=== PATIENT | male | born 1940 | race Caucasian/White ===

== ENCOUNTER 2019-12-08 02:51 | Observation (INO) | payer MEDICARE, OTHER, SELFPAY ==
[2019-12-08] VITALS (14 sets, daily range): BP systolic 136–178; BP diastolic 64–78; PULSE 60–80; RESP 14–20; TEMP 35.8–36.6; O2SAT 96–100; BMI 22.8
--- NOTE | ~2019-12-08 | CT_ITS ---
EXAMINATION: CT brain wo con DATE: 12/08/2019 02:58 INDICATION: Left-sided weakness TECHNIQUE: Computed tomography (CT) of the head was performed without intravenous contrast. The dose- length product was 605.33 mGy-cm. The mA was adjusted according to patient size. Iterative reconstruc tion technique was employed. COMPARISON: None FINDINGS: Generalized atrophy. There are scattered moderate-severe periventricular and subcortical wh ite matter changes, most likely related to small vessel ischemic disease (microangiopathy). Chronic r ight frontal lobe infarctions. Basilar cisterns are patent. There is intracranial atherosclerosis. Th ere is mucosal thickening of the paranasal sinuses. Mastoids are pneumatized. No depressed skull frac tures. Midline sagittal images are unremarkable. IMPRESSION: 1. No acute intracranial abnormality. 2: Chronic right frontal lobe infarctions. 3: Sinusitis. 4: Chronic age-related findings. Reviewed, dictated and finalized at location A.
--- NOTE | ~2019-12-08 | US_ITS ---
EXAMINATION: US carotid duplex BI DATE: 12/08/2019 10:53 INDICATION: Left-sided numbness TECHNIQUE: Grayscale, color Doppler, and pulsed Doppler images of the cervical carotid arteries were obtained. The degree of vessel stenosis is placed in one of the following categories: normal, <50%, 5 0-69%, >=70% but less than near-occlusion, near-occlusion, or total occlusion. Note that percent sten osis relative to normal distal artery lumen diameter is indirectly measured from velocity measurement s as described by Yousuf, et al. Radiology 2003; 229:340-346. Notes: Normal: Peak systolic velocity <125 centimeters/sec and no plaque <50%. Peak systolic velocity <125 ( EDV <40; ICA/CCA PSV ratio <2.0; used these factors only a tandem lesions or low cardiac output or co ntralateral disease) 50-69 %: PSV 125-230 (EDV 40-100; ratio 2-4) >= 70% but less than near occlusion: PSV greater than 230 (EDV > 100; ratio> 4.0) Near Occlusion: PSV that is variable; markedly narrowed lumen Occlusion: Absent flow on color/spectral Doppler and no lumen on nichols scale. COMPARISON: None. FINDINGS: RIGHT: The right common carotid artery (CCA) peak systolic velocity (PSV) is 79 cm/s. The right internal car otid artery (ICA) PSV is 124 cm/s. The right ICA end-diastolic velocity (EDV) is 31 cm/s. The right I CA/CCA PSV ratio is 1.6. The external carotid artery (ECA) PSV is 79 cm/s. There is antegrade flow in the right vertebral artery. LEFT: The left CCA PSV is 80 cm/s. The left ICA PSV is 123 cm/s. The left ICA EDV is 40 cm/s. The left ICA/ CCA PSV ratio is 1.5. The ECA PSV is 67 cm/s. There is antegrade flow in the left vertebral artery. IMPRESSION: 1. Less than 50% stenosis in the right internal carotid artery by sonographic criteria. 2. Less than 50% stenosis in the left internal carotid artery by sonographic criteria. Reviewed, dictated and finalized at location A. IMPRESSION: 1. Less than 50% stenosis in the right internal carotid artery by sonographic gretchen prasad. 2. Less than 50% stenosis in the left internal carotid artery by sonographic jenifer meyers.
--- NOTE | ~2019-12-08 | MR_ITS ---
EXAMINATION: MR brain/brain stem wo/w con DATE: 12/08/2019 09:20 INDICATION: TIA. Left-sided numbness. TECHNIQUE: Magnetic resonance imaging (MRI) of the brain and brainstem was performed without and with 14 cc MultiHance intravenous contrast. Sequences included sagittal and axial T1-weighted SE, axial d iffusion-weighted FS SE, axial T2*-weighted GRE, axial T2-weighted FLAIR Propeller, and axial T2-weig hted Propeller. Apparent diffusion coefficient (ADC) maps were created. COMPARISON: CT dated 12/08/2019. FINDINGS: Generalized atrophy. No acute intracranial infarction or hemorrhage. There is chronic micro hemorrhage of the right posterior parietal lobe. There is chronic right frontal lobe infarction with encephalomalacia. There are chronic punctate bilateral cerebellar infarctions. No ventriculomegaly or midline shift. There is mucosal thickening of the maxillary, ethmoid and left sphenoid sinus. Orbits are symmetric without disconjugate gaze. IMPRESSION: 1. No acute intracranial abnormality. 2: Chronic right frontal lobe and bilateral cerebellar infarctions. 3: Moderate sinusitis, possibly acute. 4: Chronic age-related findings. Reviewed, dictated and finalized at location A.
--- NOTE | ~2019-12-08 | XR_ITS ---
XR chest 1V portable 12/08/2019 03:19 Indication: Left-sided weakness. Dyspnea. Procedure: AP portable chest Comparison: No prior studies for comparison. Findings: Status post median sternotomy heart size normal. No focal air space disease, pulmonary marisa a, pleural effusion or suspected pneumothorax. There are scattered calcified granulomas. No acute oss eous abnormality. Impression: 1: No acute cardiopulmonary disease. Reviewed, dictated and finalized at location A. Impression: 1: No acute cardiopulmonary disease.
--- NOTE | 2019-12-08 02:52 | ECG_ITS ---
Measurements Intervals [place] Rate: 66 P: 64 OR: 186 QRS: 21 QRSD: 98 T: 45 QT: 425 QTc: 446 Interpretive Statements SINUS RHYTHM CANNOT RULE OUT SEPTAL INFARCT, AGE INDETERMINATE NONSPECIFIC ST & T-WAVE ABNORMALITY- DIFFUSE LEADS BASELINE ARTIFACT- I, II, III, AVR, AVL, AVF ABNORMAL ECG Electronically Signed On 12-08-2019 8:04:04 CDT by Brandon Fraser D.O.
[2019-12-08 03:06] LABS: Glucose Point of Care 94 (65-105)
[2019-12-08 03:19] LABS: Basophils Absolute Auto 0.1 K/mm3 (0.0-0.1); Basophils Percent Auto 0.6 % (0.2-1.2); Eosinophils Absolute Auto 0.3 K/mm3 (0-0.3); Eosinophils Percent Auto 2.8 % (0-4.4); Hematocrit 40.7 % (42.0-52.0); Hemoglobin 12.7 g/dL (14.0-18.0); Immature Granulocyte Absolute 0.04 K/mm3 (0.00-0.031); Immature Granulocyte Percent A 0.4 % (0-0.5); Lymphocytes Absolute Auto 0.72 K/mm3 (0.9-3.2); Lymphocytes Percent Auto 7.3 % (18.3-44.2); Mean Corpuscular HGB Conc 31.2 g/dl (32-36); Mean Corpuscular Hemoglobin 26.1 pg (26-34); Mean Corpuscular Volume 83.7 fl (80-100); Mean Platelet Volume 10.5 fl (7.4-10.4); Monocytes Absolute Auto 0.6 K/mm3 (0.1-0.6); Monocytes Percent Auto 6.5 % (2.6-8.5); Neutrophils Absolute Auto 8.1 K/mm3 (1.3-6.7); Neutrophils Percent Auto 82.4 % (45.5-73.1); Platelet Count Result 274 k/mm3 (150-375); Red Blood Count 4.86 M/mm3 (4.6-6.20); Red Cell Distribution Width 14.6 % (11.5-14.5); White Blood Count 9.9 K/mm3 (4.5-10.0)
[2019-12-08 03:24] LABS: Blood Urea Nitrogen 21 mg/dL (9-20); Calcium 8.2 mg/dL (8.4-10.2); Carbon Dioxide 28 mmol/L (22-30); Chloride 106 mmol/L (98-107); Estimated CRCL calculation 44 ml/min; Estimated Glomerular Filt Rate 58; Glucose 119 mg/dL (75-110); Potassium 4.2 mmol/L (3.4-5.0); Sodium 140 mmol/L (137-145)
[2019-12-08 03:36] LABS: Troponin I < 0.012 ng/mL (0.000-0.034)
[2019-12-08 03:50] LABS: Prothrombin Time 13.1 Seconds (11.1-14.7)
--- NOTE | 2019-12-08 03:50 | ED.NEUROSD ---
HPI - Neuro Symptoms/Deficit General Chief Complaint: Suspected CVA Stated Complaint: L sided weakness Time Seen by Provider: 12/08/19 03:03 Source: patient Mode of arrival: EMS Limitations: no limitations History of Present Illness HPI Narrative: 79 yo male who presents via EMS for evaluation of left side numbness. PAtient states he noticed at 2 am that he was having difficulty walking because his left arm and left leg numbness. He states this has never happened before. He reports history of a stroke over 20 years ago. He denies headache, blurred vision, dizziness, chest pain or sob. HE denies leg or arm weakness. He thinks his numbness has improved in his left arm but his left leg still has numbness. He takes aspirin 81 mg daily. Onset (ago): hour(s) (1) Related Data Home Medications Medication Instructions Recorded Confirmed alendronate 70 mg PO WEEKLY 12/08/19 12/08/19 amlodipine 5 mg PO DAILY 12/08/19 12/08/19 aspirin [Aspir-81] 81 mg PO DAILY 12/08/19 12/08/19 cholecalciferol (vitamin D3) 2,000 unit PO DAILY 12/08/19 12/08/19 diclofenac sodium 2 g TOPICAL BID PRN 12/08/19 12/08/19 hydrophilic cream 1 applic TOPICAL DAILY 12/08/19 12/08/19 leflunomide 20 mg PO DAILY 12/08/19 12/08/19 pravastatin 40 mg PO DAILY 12/08/19 12/08/19 prednisone 5 mg PO DAILY 12/08/19 12/08/19 tofacitinib 5 mg PO DAILY 12/08/19 12/08/19 tofacitinib 11 mg PO DAILY 12/08/19 12/08/19 Allergies Allergy/AdvReac Type Severity Reaction Status Date / Time atorvastatin Allergy Unknown Verified 12/08/19 05:05 hydroxychloroquine Allergy Unknown Verified 12/08/19 05:05 peanut Allergy Unknown Verified 12/08/19 05:05 Penicillins Allergy Unknown Verified 12/08/19 05:05 Sulfa (Sulfonamide Allergy Unknown Verified 12/08/19 05:05 Antibiotics) Review of Systems Review of Systems: Narrative: CONSTITUTIONAL: Denies fever, chills, or sweats. EYES: Denies visual changes, redness, or discharge. ENT: Denies rhinorrhea, congestion, sore throat, or otalgia. CARDIOVASCULAR: Denies chest pain, palpitations, or edema. RESPIRATORY: Denies cough or dyspnea. GASTROINTESTINAL: Denies abdominal pain, nausea, vomiting, or diarrhea. GENITOURINARY: Denies dysuria or hematuria. SKIN: Denies rash or itching. MUSCULOSKELETAL: Denies back pain, joint pain, or myalgia. NEUROLOGIC: Denies headache, reports numbness PSYCHIATRIC: Denies anxiety or depression. PMFSH Past Medical History Medical History (Updated 12/08/19 @ 05:21 by Hamida Martinez RN) Carotid stenosis Hypertension Surgical History Surgical History (Updated 12/08/19 @ 04:31 by Katie Antonio MD) Hx of CABG Family History Family History (Updated 12/08/19 @ 07:09 by Rocio Rae RN) Father Acute myocardial infarction Social History Social History Alcohol intake: former Substance use: never Substance use type: does not use Gender identity (if verbalized by the patient): Male Spiritual care concerns: No Agree to blood products: Yes Exam Narrative: Exam Narrative: gENERAL: Well-appearing, well-nourished, and in no acute distress. HEAD: Normocephalic, atraumatic EYES: PERRLA and EOMI, conjunctiva clear without discharge THROAT:Mucous membranes moist, Oropharynx normal without erythema, exudate, peritonsillar swelling or fluctuance NECK: Supple, without lymphadenopathy or mass RESPIRATORY: No respiratory distress, Airway patent, Respirations non-labored, Clear to auscultation without rales, rhonchi or wheeze HEART: Regular rate and rhythm. No murmur heard. ABDOMEN: Soft, nontender, nondistended, normal active bowel sounds. No masses. No rebound or guarding, No organomegaly. EXTREMITIES: No edema, normal strength with full range of motion. SKIN: Warm, dry, normal color without rash NEURO: Alert and oriented x3. CN 2-12 grossly intact. No focal deficits. PSYCH: Normal mood and affect. Cardio: Peripheral pulses: posterior tibial pulses present bi
[2019-12-08 03:51] LABS: Partial Thromboplastin Time 28.6 SECONDS (22.3-36.8)
[2019-12-08] MEDS: SODIUM CHLORIDE 0.9% IV 1,000 ML 999 ML IV CONT (06:30)
--- NOTE | 2019-12-08 07:06 | ADMGEN ---
This patient, Jose Maria Baker, was admitted to Medical Room 246-01. Patient/family oriented to hospital policies and general routines including ID bracelet, bed and alarms, visiting hours, pain management, procedures, bathroom and other care routines, personal items, smoking policy, room service/diet, and visiting hours. Valuables list has been completed. Information on how to activate the Rapid Response Team has been discussed. Patient/Family are encouraged to report perceived risks to care and to ask questions if they do not understand what they are told or what they should do.
[2019-12-08] MEDS: CLOPIDOGREL BISULFATE 75 MG TABLET PO (08:29)
[2019-12-08 09:55] LABS: Glucose Point of Care 73 (65-105)
[2019-12-08] MEDS: AMLODIPINE BESYLATE 5 MG TABLET PO (10:15)
[2019-12-08] MEDS: ASPIRIN 81 MG ENTERIC TABLET PO (10:15)
[2019-12-08] MEDS: predniSONE 5 MG TABLET PO (10:16)
[2019-12-08] MEDS: PRAVASTATIN SODIUM 20 MG TABLET 40 MG PO (10:16)
--- NOTE | 2019-12-08 14:34 | PM.IMHP ---
H&P: HPI History of Present Illness Chief complaint: TIA Narrative: Jose Maria Baker is a 79 year old male who was in his normal state of health when he went to bed last night and woke up around 2:00 a.m. to go the bathroom. When he got up he realized his left arm and leg were numb. He thought he simply just slept on it wrong so he urinated and then went and sat in the living room. He noticed that his numbness was not getting any better. When he was walking he notice that he drags his foot as well. He said the numbness was worse when he was walking and better when he sat down. He said it kept coming and going. It lasted over an hour in total. During this time he also broke out in sweats and he was not sure why as this never happens. He had absolutely no chest pain, shortness of breath, palpitations, or jaw pain when this was going on. He said he has had a stroke in the past and also has CAD and required 8 stents in the past. He does not know when his last stress test was but it has been awhile. He denies fevers, chills, nausea, vomiting, cough, diarrhea, constipation, dysuria, problems with speech or dizziness. He has been eating and drinking okay. The symptoms have completely resolved at this time. Review of Systems Review of Systems: All systems reviewed & are unremarkable except as noted in HPI and below PMFSH Past Medical History Medical History (Updated 12/08/19 @ 16:15 by Sena Lemus PA-C) CAD (coronary artery disease) Carotid stenosis History of stroke Hypertension Rheumatoid arthritis Surgical History Surgical History (Updated 12/08/19 @ 16:21 by Sena Lemus PA-C) Hx of CABG pt and daughter said he had a SD during angiogram and had sternotomy and had 8 stents Family History Family History (Updated 12/08/19 @ 16:15 by Sena Lemus PA-C) Father Acute myocardial infarction Hypertension Mother Acute myocardial infarction Social History Social History (Updated 12/08/19 @ 16:22 by Sena Lemus PA-C) Social History: Patient has not smoked or drink alcohol since 1999. 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 He designates his daughter Yoko as his surrogate decision maker. He would like to be a full code. Smoking status: Former smoker Tobacco type: cigarettes Second hand tobacco smoke exposure: Yes Alcohol intake: former Substance use: never Substance use type: does not use Gender identity (if verbalized by the patient): Male Spiritual care concerns: No Agree to blood products: Yes Meds Home Medications and Allergies Home Medications Medication Instructions Recorded Confirmed Type alendronate 70 mg PO WEEKLY 12/08/19 12/08/19 History amlodipine 5 mg PO DAILY 12/08/19 12/08/19 History aspirin [Aspir-81] 81 mg PO DAILY 12/08/19 12/08/19 History cholecalciferol (vitamin D3) 2,000 unit PO DAILY 12/08/19 12/08/19 History diclofenac sodium 2 g TOPICAL BID PRN 12/08/19 12/08/19 History dorzolamide-timolol 1 drp LEFTEYE BID 12/08/19 12/08/19 History hydrophilic cream 1 applic TOPICAL DAILY 12/08/19 12/08/19 History leflunomide 20 mg PO DAILY 12/08/19 12/08/19 History pravastatin 40 mg PO DAILY 12/08/19 12/08/19 History prednisolone acetate 1 drp LEFTEYE TID 12/08/19 12/08/19 History prednisone 5 mg PO DAILY 12/08/19 12/08/19 History tofacitinib 5 mg PO DAILY 12/08/19 12/08/19 History tofacitinib 11 mg PO DAILY 12/08/19 12/08/19 History Allergies Allergy/AdvReac Type Severity Reaction Status Date / Time atorvastatin Allergy Unknown Verified 12/08/19 05:05 hydroxychloroquine Allergy Unknown Verified 12/08/19 05:05 peanut Allergy Unknown Verified 12/08/19 05:05 Penicillins Allergy Unknown Verified 12/08/19 05:05 Sulfa (Sulfonamide Allergy Unknown Verified 12/08/19 05:05 Antibiotics) Vital Signs Vital Signs - 24 hr 12/08/19 02:58 12/08/19 04:19 12/08/19 04:23 Temperature 97.4 F L Pulse Rate 68 80 80 Respiratory Rate 16 18 18 Blood Pressure 171/77 H 13
[2019-12-08 15:23] LABS: Troponin I < 0.012 ng/mL (0.000-0.034)
[2019-12-08 16:16] LABS: Folic Acid 7.5 ng/mL (2.76->20)
--- NOTE | 2019-12-08 17:08 | WPDNEURCNPN ---
Assessment and Plan Assessment and plan (1) HLD (hyperlipidemia): Code(s): E78.5 - Hyperlipidemia, unspecified Status: Acute (2) History of stroke: Code(s): Z86.73 - Personal history of transient ischemic attack (TIA), and cerebral infarction without residual deficits Status: Acute (3) HTN (hypertension) with goal to be determined: Code(s): I10 - Essential (primary) hypertension Status: Acute (4) CAD (coronary artery disease): Code(s): I25.10 - Atherosclerotic heart disease of [place] coronary artery without angina pectoris Status: Acute (5) Rheumatoid arthritis: Code(s): M06.9 - Rheumatoid arthritis, unspecified Status: Acute (6) TIA (transient ischemic attack): Code(s): G45.9 - Transient cerebral ischemic attack, unspecified Status: Acute Additional Plan patient already had the brain MRI performed which is unrevealing rest of the workup is pending he should be continued on a 12 anti-platelet therapy and monitored most likely would need echocardiogram considering the fact that he has had the previous coronary artery bypass surgery and also stenting Consult date: 12/08/19 Time Seen: 17:00 HPI: this is an 79-year-old right-handed gentleman who was admitted because of a TIA when all of a sudden early this morning he had numbness and weakness of the left side of the arm and the leg which resolved spontaneously only to reoccur and also resolved quite nicely the patient does not have any previous history of the same thing in the past he was evaluated in the emergency room and has had the workup performed which I will summarize in the next few lines next Patient denies any headache nausea vomiting chest pain shortness of breath fever chills or sore throat the patient was already taking aspirin and clopidogrel has been added have from the emergency room he is doing fairly well and is back to his baseline rather quickly Review of Systems Review of Systems: All systems reviewed & are unremarkable except as noted in HPI and below PMFSH Past Medical History Medical History CAD (coronary artery disease) Carotid stenosis History of stroke Hypertension Rheumatoid arthritis Surgical History Surgical History Hx of CABG pt and daughter said he had a CA during angiogram and had sternotomy and had 8 stents Family History Family History Father Acute myocardial infarction Hypertension Mother Acute myocardial infarction Social History Social History Social History: Patient has not smoked or drink alcohol since 1999. 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 He designates his daughter Yoko as his surrogate decision maker. He would like to be a full code. Smoking status: Former smoker Tobacco type: cigarettes Second hand tobacco smoke exposure: Yes Alcohol intake: former Substance use: never Substance use type: does not use Gender identity (if verbalized by the patient): Male Spiritual care concerns: No Agree to blood products: Yes Meds Home Medications and Allergies Home Medications Medication Instructions Recorded Confirmed Type alendronate 70 mg PO WEEKLY 12/08/19 12/08/19 History amlodipine 5 mg PO DAILY 12/08/19 12/08/19 History aspirin [Aspir-81] 81 mg PO DAILY 12/08/19 12/08/19 History cholecalciferol (vitamin D3) 2,000 unit PO DAILY 12/08/19 12/08/19 History diclofenac sodium 2 g TOPICAL BID PRN 12/08/19 12/08/19 History dorzolamide-timolol 1 drp LEFTEYE BID 12/08/19 12/08/19 History hydrophilic cream 1 applic TOPICAL DAILY 12/08/19 12/08/19 History leflunomide 20 mg PO DAILY 12/08/19 12/08/19 History pravastatin 40 mg PO DAILY 12/08/19 12/08/19 History prednisolone acetate 1 drp LEFTEYE TID 12/08/19 12/08/19 History prednisone 5 mg PO DAILY
[2019-12-08] MEDS: DORZOLAMIDE/TIMOLOL OPHTH SOL 10 ML BOTTLE 1 DROP LEFT EYE (17:35)
[2019-12-09] VITALS (10 sets, daily range): BP systolic 116–164; BP diastolic 54–82; PULSE 61–86; RESP 16–18; TEMP 36–36.8; O2SAT 96–98
--- NOTE | 2019-12-09 06:00 | ECHO_ITS ---
Patient Info Name: Jose Maria Baker Age: 79 years : 1940 Gender: Male Ht: 70 in Wt: 159 lbs BSA: 1.89 m2 HR: 68 bpm BP: 164 / 82 mmHg Technical Quality: Fair Exam Date: 12/09/2019 9:03 AM Exam Location: [facility] Pulmonary Patient Status: Inpatient Admit Date: 12/08/2019 Staff Ordering Physician: Katie Antonio MD [employer]: Yani Harrington RDCS Attending Provider: Deborah Dong DO Referring Physician: Paco WONG; Exam Type: CA echo doppler w bubble study Study Info Indications - TIA Complete two-dimensional, color flow and Doppler transthoracic echocardiogram is performed with agitated saline. Contrast/Agitated Saline Contrast/Ag. Saline: Agitated Saline Amount: 20.00 ml Administered By: Samuel Roberson RN IV Access Condition: patent with no signs of infiltration Site Condition: No extravasation Summary 1. Left ventricular chamber dimension is normal. 2. Left ventricular systolic function is normal, estimated at 60-65%. 3. The left ventricular diastolic function is grade I diastolic dysfunction. 4. E/e' 21 is significantly elevated. 5. There is moderate aortic valve sclerosis. 6. There is mild aortic valve stenosis with a peak velocity of 198 cm/s, mean gradient of 10 mmHg, and aortic valve area of 1.8 cm2. 7. There is trace aortic valve regurgitation. 8. The mitral valve has moderately thickened leaflets, calcified leaflets and calcified annulus. 9. There is mild tricuspid valve regurgitation. 10. No pulmonary hypertension, estimated pulmonary arterial systolic pressure is 33 mmHg. Left Ventricle E/e' 21 is significantly elevated. Left ventricular chamber dimension is normal. Left ventricular systolic function is normal, estimated at 60-65%. The left ventricular diastolic function is grade I diastolic dysfunction. Right Ventricle Right ventricular chamber dimension is normal. Right ventricular systolic function is normal. Left Atria Left atrial chamber dimension is normal. Right Atria Right atrial chamber dimension is normal. Atrial Septum Agitated saline administered which opacified right sided chambers with and without valsalva maneuver with no shunt noted. Intact interatrial septum visualized by color flow and agitated saline imaging. Aortic Valve The aortic valve is trileaflet. There is moderate aortic valve sclerosis. There is mild aortic valve stenosis with a peak velocity of 198 cm/s, mean gradient of 10 mmHg, and aortic valve area of 1.8 cm2. There is trace aortic valve regurgitation. Pulmonic Valve There is no pulmonic regurgitation. Mitral Valve The mitral valve has moderately thickened leaflets, calcified leaflets and calcified annulus. There is no mitral valve stenosis. There is no mitral valve regurgitation. Tricuspid Valve There is mild tricuspid valve regurgitation. No pulmonary hypertension, estimated pulmonary arterial systolic pressure is 33 mmHg. Pericardium/Pleural There is no pericardial effusion. Inferior Vena Cava Normal inferior vena cava with >50% collapse upon inspiration consistent with normal right atrial pressure, 5 mmHg. Aorta The aortic root size at the sinus of Valsalva is normal. Left Ventricular Outflow Tract Name Value Normal
[2019-12-09] MEDS: ASPIRIN 81 MG ENTERIC TABLET PO (08:07)
[2019-12-09] MEDS: CLOPIDOGREL BISULFATE 75 MG TABLET PO (08:07)
[2019-12-09] MEDS: predniSONE 5 MG TABLET PO (08:07)
[2019-12-09] MEDS: AMLODIPINE BESYLATE 5 MG TABLET PO (08:07)
[2019-12-09] MEDS: PRAVASTATIN SODIUM 20 MG TABLET 40 MG PO (08:07)
[2019-12-09] MEDS: DORZOLAMIDE/TIMOLOL OPHTH SOL 10 ML BOTTLE 1 DROP LEFT EYE ×2 (08:08→17:14)
[2019-12-09 08:59] LABS: Cholesterol 137 mg/dL (0-200); HDL Direct 34 mg/dL; Triglycerides 113 mg/dL (<150)
[2019-12-09 09:10] LABS: LDL Cholesterol Direct 76 mg/dL
--- NOTE | 2019-12-09 11:42 | PM.CNCAR ---
Assessment and Plan Assessment and plan (1) HTN (hypertension) with goal to be determined: Code(s): I10 - Essential (primary) hypertension Status: Acute Assessment and Plan: Stable. (2) CAD (coronary artery disease): Code(s): I25.10 - Atherosclerotic heart disease of [place] coronary artery without angina pectoris Status: Acute (3) TIA (transient ischemic attack): Code(s): G45.9 - Transient cerebral ischemic attack, unspecified Status: Acute (4) HLD (hyperlipidemia): Code(s): E78.5 - Hyperlipidemia, unspecified Status: Acute (5) CAD (coronary artery disease), autologous vein bypass graft: Code(s): I25.810 - Atherosclerosis of coronary artery bypass graft(s) without angina pectoris Status: Acute (6) PAF (paroxysmal atrial fibrillation): Code(s): I48.0 - Paroxysmal atrial fibrillation Status: Acute Assessment and Plan: This is most likely PAF with aberrancy than it is NSVT. [id number] which is high risk for cardioembolism. Check Mag level. Check echo. Start Toprol XL 25 mg daily. Stop Plavix, and start Eliquis 5 mg BID. History of Present Illness History of Present Illness Consult date/time: 12/09/19 11:42 Reason for consult: VT vs Afib with aberrancy. Jose Maria Baker is a 79 year old man who has a history of CAD with CABG in 1999 at [facility] (patient believes he had a cardiac cath then was sent for open heart surgery to have 8 stents placed which does not happen normally), dyslipidemia, hypertension, stroke who was in his normal state of health when he went to bed 2 nights ago and woke up around 2:00 a.m. to go the bathroom. When he got up he realized his left arm and leg were numb. He thought he simply just slept on it wrong so he urinated and then went and sat in the living room. He noticed that his numbness was not getting any better. When he was walking he notice that he drags his foot as well. He said the numbness was worse when he was walking and better when he sat down. He said it kept coming and going. It lasted over an hour in total. Denies chest pain, sob, orthopnea, edema, palpitations. He can walk to his mailbox or a couple of blocks without any problems depending on the day. It was noted on telemetry at 7:25 pm on 12/08/19 a 13 beat run that is irregularly irregular, rapid, and dissimilar from his PVC's on telemetry, and is most likely paroxysmal atrial fib with aberrancy. Patient did not feel this last evening. Reason For Visit: TIA Review of Systems Review of Systems: All systems reviewed & are unremarkable except as noted in HPI and below Constitutional: Constitutional: Reports as per HPI, Denies chills and Denies fatigue Cardiovascular: Cardiovascular: Reports as per HPI, Denies chest pain, Denies leg edema and Denies lightheadedness Respiratory: Respiratory: Reports as per HPI and Denies dyspnea on exertion Gastrointestinal: Gastrointestinal: Reports as per HPI and Denies abdominal pain Genitourinary: Genitourinary: Reports as per HPI Neurologic: Reports as per HPI and Reports numbness PMFSH Past Medical History Medical History (Updated 12/09/19 @ 11:57 by Brandon Fraser DO) CAD (coronary artery disease) Carotid stenosis Dry skin High cholesterol History of stroke Hypertension Inflammatory and immune myopathies Osteoarthritis Rheumatoid arthritis Vitamin D deficiency Surgical History Surgical History Hx of CABG pt and daughter said he had a DE during angiogram and had sternotomy and had 8 stents Family History Family History Father Acute myocardial infarction Hypertension Mother Acute myocardial infarction Social History Social History Social History: Patient has not smoked or drink alcohol since 1999. 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 He designates his d
--- NOTE | 2019-12-09 13:38 | PM.IMPN ---
Progress Note: A&P Assessment and Plan (1) TIA (transient ischemic attack): Code(s): G45.9 - Transient cerebral ischemic attack, unspecified Status: Acute Assessment and Plan: -----patient's symptoms are consistent with a TIA. They resolved within an hour and there is no evidence on imaging. His carotids are clean and lipid panel is normal. Telemetry shows possible atrial fibrillation and I consulted Cardiology who started Eliquis. His Plavix, which was started at the beginning of his stay, was stopped. [facility] of his daughter. Because it takes a few days to obtain these prescriptions, the patient was given Eliquis samples from Dr. Van's office. Dr. van also started him on metoprolol and request he be monitored overnight and likely discharge tomorrow. Since the patient had diaphoresis with this numbness and new onset atrial fibrillation with his cardiac history, I suggest he be seen outpatient to see if a stress test would be appropriate. Echo- 1. Left ventricular chamber dimension is normal. 2. Left ventricular systolic function is normal, estimated at 60-65%. 3. The left ventricular diastolic function is grade I diastolic dysfunction. 4. E/e' 21 is significantly elevated. 5. There is moderate aortic valve sclerosis. 6. There is mild aortic valve stenosis with a peak velocity of 198 cm/s, mean gradient of 10 mmHg, and aortic valve area of 1.8 cm2. 7. There is trace aortic valve regurgitation. 8. The mitral valve has moderately thickened leaflets, calcified leaflets and calcified annulus. 9. There is mild tricuspid valve regurgitation. 10. No pulmonary hypertension, estimated pulmonary arterial systolic pressure is 33 mmHg. (2) Rheumatoid arthritis: Code(s): M06.9 - Rheumatoid arthritis, unspecified Status: Acute Assessment and Plan: -----home meds verified with his daughter. Continue home medications. No acute issues (3) CAD (coronary artery disease): Code(s): I25.10 - Atherosclerotic heart disease of [place] coronary artery without angina pectoris Status: Acute Assessment and Plan: -----will continue aspirin. No acute chest pain. See above (4) HTN (hypertension) with goal to be determined: Code(s): I10 - Essential (primary) hypertension Status: Acute Assessment and Plan: -----last blood pressure 121/66. Continue amlodipine. (5) History of stroke: Code(s): Z86.73 - Personal history of transient ischemic attack (TIA), and cerebral infarction without residual deficits Status: Acute Assessment and Plan: -----chronic stroke noted on imaging. Continue aspirin and pravastatin (6) HLD (hyperlipidemia): Code(s): E78.5 - Hyperlipidemia, unspecified Status: Acute Assessment and Plan: -----continue pravastatin. Time Spent With Patient Time with patient: 25 - 35 minutes Subjective Date/time seen: 12/09/19 13:38 Interval history: Pt is a 79-year-old male here for TIA. Patient was seen today and states he has no complaints. He has no chest pain, heart palpitations, shortness of breath, weakness, fevers, chills, diarrhea or constipation. He had no events overnight. I spoke to the patient about the current plan and medication changes. I also called and talked to his daughter Yoko at [phone]. [phone] and I spoke with Dr. Kennedy's associates about his new diagnosis and medications. Review of Systems Review of Systems: All systems reviewed & are unremarkable except as noted in HPI and below Exam Narrative: Exam Narrative: General: Well developed well nourished patient resting comfortably in the chair in NAD HEENT: normocephalic Neck: supple Neuro: Alert and oriented x4. Cranial nerves 2-12 intact. equal strength the upper lower extremities 5/5. Able to do [id number] and rapid alternatin
[2019-12-09] MEDS: METOPROLOL SUCCINATE EXT REL 25 MG TABCR PO (15:16)
[2019-12-09 15:23] LABS: Magnesium 2.1 mg/dL (1.6-2.3)
[2019-12-09] MEDS: APIXABAN 5 MG TABLET PO (20:03)
[2019-12-10 00:05] VITALS: PULSE 75
[2019-12-10 04:00] VITALS: PULSE 58
[2019-12-10 06:17] VITALS: BP 151/80; PULSE 69; RESP 16; TEMP 37.3; O2SAT 99
[2019-12-10 08:00] VITALS: PULSE 69
--- NOTE | 2019-12-10 08:00 | PM.PNCARD ---
Progress Note: A&P Assessment and Plan (1) CAD (coronary artery disease), autologous vein bypass graft: Code(s): I25.810 - Atherosclerosis of coronary artery bypass graft(s) without angina pectoris Status: Acute (2) PAF (paroxysmal atrial fibrillation): Code(s): I48.0 - Paroxysmal atrial fibrillation Status: Acute Assessment and Plan: Started Eliquis 5 mg BID and Toprol XL 25 mg daily. No recurrences. Echo is essentially normal with diastolic dysfunction. May D/C home from cardiology standpoint and f/u with his doctors [facility]. (3) HLD (hyperlipidemia): Code(s): E78.5 - Hyperlipidemia, unspecified Status: Acute (4) History of stroke: Code(s): Z86.73 - Personal history of transient ischemic attack (TIA), and cerebral infarction without residual deficits Status: Acute (5) TIA (transient ischemic attack): Code(s): G45.9 - Transient cerebral ischemic attack, unspecified Status: Acute Assessment and Plan: On Aspirin. (6) PAF (paroxysmal atrial fibrillation): Code(s): I48.0 - Paroxysmal atrial fibrillation Status: Acute Subjective Date/time seen: 12/10/19 08:00 Denies chest pain, sob, left sided numbness. Telemetry no longer had PVC's or atrial fibrillation. Exam Const: General: comfortable and no acute distress Neck: Neck: no JVD Carotids: no bruits Resp: Auscultation: clear to auscultation bilaterally, no crackles, no rales, no rhonchi and no wheezes Cardio: Rate: regular rate Rhythm: regular rhythm Heart sounds: no murmurs GI: Inspection: non-distended Neuro: Speech: normal speech Extrem: Right lower extremity: no edema Left lower extremity: no edema Objective Data Vital Signs Vital Signs: Vital Signs - 24 hr 12/09/19 12:00 12/09/19 13:30 12/09/19 15:16 Temperature 98.2 F Pulse Rate 75 78 80 Respiratory Rate 18 Blood Pressure 121/66 Pulse Oximetry 96 12/09/19 16:00 12/09/19 20:00 12/09/19 21:20 Temperature 98.3 F Pulse Rate 69 72 63 Respiratory Rate 18 16 Blood Pressure 116/54 L Pulse Oximetry 96 98 12/10/19 00:05 12/10/19 04:00 12/10/19 06:17 Temperature 99.1 F Pulse Rate 75 58 L 69 Respiratory Rate 16 Blood Pressure 151/80 H Pulse Oximetry 99 Intake/Output Intake/Output: Intake & Output 12/07/19 12/08/19 12/09/19 12/10/19 23:59 23:59 23:59 23:59 Intake Total 2230 1750 100 Output Total 950 500 600 Balance 1280 1250 -500 Meds/Results Medications: Active Medications Generic Name Dose Route Start Last Admin Trade Name Freq PRN Reason Stop Dose Admin Amlodipine Besylate 5 mg 12/08/19 09:35 12/09/19 08:07 Norvasc PO 5 mg DAILY TIM Administration Apixaban 5 mg 12/09/19 21:00 12/09/19 20:03 Eliquis PO 5 mg Q12HR TIM Administration Aspirin 81 mg 12/08/19 09:35 12/09/19 08:07 Aspirin Ec PO 81 mg DAILY TIM Administration Dorzolamide/Timolol 1 drop 12/08/19 17:00 12/09/19 17:14 Cosopt Eye Drops LEFT EYE 01/07/20 17:01 1 drop BID [facility] Administration Metoprolol Succinate 25 mg 12/10/19 09:00 Toprol Xl PO QAM [facility] Non-Formulary Medication 5 mg 12/09/19 09:00 Tofacitinib PO 01/08/20 09:01 DAILY [facility] Ondansetron HCl 4 mg 12/08/19 05:40 Zofran Inj IV PUSH Q4H PRN Nausea Pravastatin Sodium 40 mg 12/08/19 09:35 12/09/19 08:07 Pravastatin Sodium PO 40 mg DAILY TIM Administration Prednisolone Acetate 1 drop 12/08/19 13:00 12/09/19 17:14 Pred Forte LEFT EYE 1 drop TID TIM Administration Prednisone 5 mg 12/08/19 09:35 12/09/19 08:07 Prednisone PO 5 mg DAILY [facility] Administration Radiology Results: ITS Impressions Chest X-Ray 12/08/19 08:13 Impression: 1: No acute cardiopulmonary disease. Head CT 12/08/19 08:39 IMPRESSION: 1. No acute intracranial abnormality. 2: Chronic right frontal lobe infarctions. 3: Sinusitis. 4: Director Data Processing
[2019-12-10 08:15] VITALS: PULSE 69
[2019-12-10] MEDS: predniSONE 5 MG TABLET PO (08:15)
[2019-12-10] MEDS: ASPIRIN 81 MG ENTERIC TABLET PO (08:15)
[2019-12-10] MEDS: APIXABAN 5 MG TABLET PO (08:15)
[2019-12-10] MEDS: AMLODIPINE BESYLATE 5 MG TABLET PO (08:15)
[2019-12-10] MEDS: METOPROLOL SUCCINATE EXT REL 25 MG TABCR PO (08:15)
[2019-12-10] MEDS: PRAVASTATIN SODIUM 20 MG TABLET 40 MG PO (08:15)
[2019-12-10] MEDS: DORZOLAMIDE/TIMOLOL OPHTH SOL 10 ML BOTTLE 1 DROP LEFT EYE (08:17)
--- NOTE | 2019-12-10 09:54 | WPDNEUROPN ---
Progress Note: A&P Assessment and Plan (1) PAF (paroxysmal atrial fibrillation): Code(s): I48.0 - Paroxysmal atrial fibrillation Status: Acute (2) PAF (paroxysmal atrial fibrillation): Code(s): I48.0 - Paroxysmal atrial fibrillation Status: Acute (3) CAD (coronary artery disease), autologous vein bypass graft: Code(s): I25.810 - Atherosclerosis of coronary artery bypass graft(s) without angina pectoris Status: Acute (4) HLD (hyperlipidemia): Code(s): E78.5 - Hyperlipidemia, unspecified Status: Acute (5) History of stroke: Code(s): Z86.73 - Personal history of transient ischemic attack (TIA), and cerebral infarction without residual deficits Status: Acute (6) HTN (hypertension) with goal to be determined: Code(s): I10 - Essential (primary) hypertension Status: Acute (7) CAD (coronary artery disease): Code(s): I25.10 - Atherosclerotic heart disease of [place] coronary artery without angina pectoris Status: Acute (8) Rheumatoid arthritis: Code(s): M06.9 - Rheumatoid arthritis, unspecified Status: Acute (9) TIA (transient ischemic attack): Code(s): G45.9 - Transient cerebral ischemic attack, unspecified Status: Acute Additional Plan all studies reviewed and agree with treatment at present Review of Systems Review of Systems: All systems reviewed & are unremarkable except as noted in HPI and below Exam Const: General: cooperative, comfortable, no acute distress, alert and awake Nutritional Appearance: average body habitus Orientation/consciousness: patient oriented x3 Limitations: no limitations Eyes: General: appearance normal, both eyes and all related structures Neck: Neck: full ROM and no lymphadenopathy Resp: Effort & Inspection: normal respiratory effort Auscultation: clear to auscultation bilaterally Cardio: Rate: regular rate Rhythm: regular rhythm GI: Auscultation: normal bowel sounds Neuro: General: patient oriented x3 and moves all extremities Cranial nerves: Yes CN's II-XII intact bilaterally, Yes Equal, round and reactive pupils present, Yes Nystagmus not present, Yes Normal facial strength present, Yes Midline tongue present, Yes Symmetric palate elevation present, Yes Normal hearing present and Yes Ability to bilaterally rotate head present Cognition (Neuro): normal cognition Speech: normal speech Motor exam (neuro): 5/5 motor strength present throughout Sensory Exam: normal sensation Deep tendon reflexes (DTR's): Right triceps reflex intensity grade: 1+, Left triceps reflex intensity grade: 1+, Rt Biceps (C5, C6): 1+, Left biceps reflex intensity grade: 1+, Right brachioradialis reflex intensity grade: 1+, Left brachioradialis reflex intensity grade: 1+, Right patellar reflex intensity grade: 1+, Left patellar reflex intensity grade: 1+, Right ankle reflex intensity grade: 1+ and Left ankle reflex intensity grade: 1+ Plantar Reflex Responses: downgoing: bilateral Coordination: [id number] test normal Psych: Appearance: grossly normal Objective Data Vital Signs Vital Signs: Vital Signs - 24 hr 12/09/19 12:00 12/09/19 13:30 12/09/19 15:16 Temperature 36.8 C Pulse Rate 75 78 80 Respiratory Rate 18 Blood Pressure 121/66 Pulse Oximetry 96 12/09/19 16:00 12/09/19 20:00 12/09/19 21:20 Temperature 36.8 C Pulse Rate 69 72 63 Respiratory Rate 18 16 Blood Pressure 116/54 L Pulse Oximetry 96 98 12/10/19 00:05 12/10/19 04:00 12/10/19 06:17 Temperature 37.3 C Pulse Rate 75 58 L 69 Respiratory Rate 16 Blood Pressure 151/80 H Pulse Oximetry 99 12/10/19 08:00 12/10/19 08:15 Temperature Pulse Rate 69 69 Respiratory Rate Blood Pressure Pulse Oximetry Intake/Output Intake/Output: Intake & Output 12/07/19 12/08/19 12/09/19 12/10/19 23:59 23:59 23:59 23:59 Intake Total 2230 1750 460 Output Total 950 500 600 Balance 1280 1250 -14
--- NOTE | 2019-12-10 16:39 | PM.DS ---
DS: Diagnosis Admitting Diagnosis Admitting Diagnosis: Transient cerebral ischemic attack, unspecified Discharge Diagnosis (1) TIA (transient ischemic attack): Code(s): G45.9 - Transient cerebral ischemic attack, unspecified Status: Acute Assessment and Plan: Date of Service 12/10/19 Mr. Baker is an 79yo M with history of prior CVA, coronary artery disease, rheumatoid arthritis, hypertension, and hyperlipidemia who presented to the emergency department for evaluation of numbness and tingling to left arm and left leg. He reports these symptoms resolved in the ER. CT brain and MRI brain demonstrated chronic right frontal lobe and bilateral cerebellar infarctions with no evidence of acute intracranial abnormality. It is felt that his symptoms were most consistent with TIA. Carotid dopplers showed less than 50% stenosis in each of the left and right internal carotid arteries. Lipid panel is within normal limits. Telemetry demonstrated atrial fibrillation and cardiology was consulted. He was evaluated by Dr Fraser and echocardiogram was performed, detailed below. He was started on metoprolol and Eliquis by cardiology which he tolerated well. [facility]. His symptoms were resolved and he was feeling well on day of discharge. He was hemodynamically stable for discharge 12/10/19 with instructions to follow up with his PCP and with Dr Fraser. Consultations: Cardiology - Dr Fraser Echocardiogram 12/09/19 1. Left ventricular chamber dimension is normal. 2. Left ventricular systolic function is normal, estimated at 60-65%. 3. The left ventricular diastolic function is grade I diastolic dysfunction. 4. E/e' 21 is significantly elevated. 5. There is moderate aortic valve sclerosis. 6. There is mild aortic valve stenosis with a peak velocity of 198 cm/s, mean gradient of 10 mmHg, and aortic valve area of 1.8 cm2. 7. There is trace aortic valve regurgitation. 8. The mitral valve has moderately thickened leaflets, calcified leaflets and calcified annulus. 9. There is mild tricuspid valve regurgitation. 10. No pulmonary hypertension, estimated pulmonary arterial systolic pressure is 33 mmHg. (2) CAD (coronary artery disease): Qualifiers: Coronary Disease-Associated Artery/Lesion type: unspecified vessel or lesion type [place] vs. transplanted heart: [place] heart Associated angina: without angina Qualified Code(s): I25.10 - Atherosclerotic heart disease of [place] coronary artery without angina pectoris Code(s): I25.10 - Atherosclerotic heart disease of [place] coronary artery without angina pectoris Status: Acute Assessment and Plan: Maintained on ASA therapy. No acute chest pain. (3) HTN (hypertension) with goal to be determined: Code(s): I10 - Essential (primary) hypertension Status: Acute Assessment and Plan: BPs variable on home Norvasc. (4) Rheumatoid arthritis: Qualifiers: Rheumatoid arthritis location: unspecified site Rheumatoid factor presence: unspecified presence Qualified Code(s): M06.9 - Rheumatoid arthritis, unspecified Code(s): M06.9 - Rheumatoid arthritis, unspecified Status: Acute Assessment and Plan: No acute issues. (5) History of stroke: Code(s): Z86.73 - Personal history of transient ischemic attack (TIA), and cerebral infarction without residual deficits Status: Acute Assessment and Plan: Chronic stroke noted on imaging as mentioned above. Continue aspirin and pravastatin. Discussed increased risk for subsequent CVA and TIAs. (6) HLD (hyperlipidemia): Qualifiers: Hyperlipidemia type: unspecified Qualified Code(s): E78.5 - Hyperlipidemia,
== END 2019-12-10 10:30 | disposition home or self-care (01) ==
LOC: ANHED 05:03 → ANH2MED 06:27
PROVIDERS: Internal Medicine Cardiovascular Disease; Physician Assistant; Admitting Provider Internal Medicine; Emergency Provider General Practice; Visit Provider Hospitalist
DX: G45.9 Transient cerebral ischemic attack, unspecified (principal); I48.0 Paroxysmal atrial fibrillation; I25.10 Atherosclerotic heart disease of native coronary artery without angina pectoris; I25.810 Atherosclerosis of coronary artery bypass graft(s) without angina pectoris; I10 Essential (primary) hypertension; M06.9 Rheumatoid arthritis, unspecified; M19.90 Unspecified osteoarthritis, unspecified site; G72.49 Other inflammatory and immune myopathies, not elsewhere classified; E78.5 Hyperlipidemia, unspecified; E55.9 Vitamin D deficiency, unspecified; Z79.82 Long term (current) use of aspirin; Z79.899 Other long term (current) drug therapy; Z86.73 Personal history of transient ischemic attack (TIA), and cerebral infarction without residual deficits; Z87.891 Personal history of nicotine dependence; Z95.5 Presence of coronary angioplasty implant and graft
CPT/HCPCS: 36415; 70450; 70553; 71045; 80048; 80061; 82607; 82746; 82948; 83735; 84484; 85025; 85610; 85730; 93005; 93306; 93880; 96360; 96375; 99285; A9270; A9577; G0378; J7030; J7512

== ENCOUNTER 2020-01-28 18:40 | Observation (INO) | payer MEDICARE, OTHER, SELFPAY ==
--- NOTE | ~2020-01-28 | CT_ITS ---
EXAMINATION: CT brain wo con EXAM DATE: 01/28/2020 21:27 INDICATION: Left-sided hemiparesis. TECHNIQUE: Spiral CT of the head was performed without contrast. Axial, coronal and sagittal images were reviewed. The dose-length product (DLP) for this examination was 605.33 mGy-cm. The exposure w as tailored according to patient size, and iterative reconstruction (ASIR) was used as additional dos e reduction technique. Comparison is made to prior examination from 12/08/2019. FINDINGS: There is no acute intraparenchymal hemorrhage. No evidence of intraparenchymal brain mass lesion. No evidence of acute infarction. Please note that initial head CT has limited sensitivity f or small or acute infarctions. There is moderate-sized old right frontal lobe infarction, another sm all old right frontal lobe infarction, both unchanged. There is mild periventricular and subcortical hypodensity, nonspecific but probably related to small vessel ischemic disease. There is mild prom inence of the sulci and ventricles related to cerebral atrophy. There is intracranial carotid arter iosclerosis. There are no extra-axial collections. There is no mass effect or midline shift. Patie nt has had bilateral ocular lens surgery. Soft tissue is unremarkable. Moderate left ethmoid mucope riosteal thickening. IMPRESSION: 1. 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 2. Chronic age related findings. Reviewed, dictated and finalized at location A.
--- NOTE | ~2020-01-28 | CT_ITS ---
EXAMINATION: CTA brain carotid DATE: 01/29/2020 11:08 INDICATION: Left hemiparesis. TECHNIQUE: Computed tomographic angiography (CTA) of the head was performed without and with 100 mL O mnipaque-350 intravenous contrast. CTA of the neck was performed with intravenous contrast. Automated exposure control and iterative reconstruction technique were employed. The dose-length product was 1 628.42 mGy-cm. Maximum intensity projection and volume rendered 3D-reconstructions were created by karen burgess technologist on a separate workstation. COMPARISON: Brain MRI 01/29/2020 FINDINGS: HEAD CTA: There are old infarcts in the bilateral cerebellum. There is an old infarct in right fronta l lobe. There is an old infarct in right frontoparietal region. There are scattered areas of low atte nuation in the cerebral white matter. There is no intracranial hemorrhage, acute infarction, or abnor mal intracranial mass lesion. The ventricles are normal in size. There are likely changes of ocular l ens replacement surgeries. There is mucosal thickening in the paranasal sinuses and nasal cavity. The mastoid air cells are normal. There is total occlusion of distal right vertebral artery. There is se dereck stenosis of distal left vertebral artery. There is no significant stenosis of basilar artery or the posterior cerebral arteries. The posterior communicating arteries are normal. There is mild steno sis of the intracranial internal carotid arteries. Right A1 anterior cerebral artery segment is small , a normal variant. Anterior communicating artery is normal. There is no significant stenosis of the middle cerebral arteries. There is no aneurysm. NECK CTA: There is mild emphysema. There are no pathologically enlarged lymph nodes. There is intermi ttent mild stenosis of right vertebral artery. There is total occlusion of distal right vertebral art yolande. There is intermittent moderate stenosis of left vertebral artery. There is severe stenosis of di stal left vertebral artery. There is plaque in the proximal internal carotid arteries. There is 15% s tenosis of the proximal right internal carotid artery relative to normal distal artery lumen diameter (NASCET criteria). There is 0% stenosis of the proximal left internal carotid artery relative to nor mal distal artery lumen diameter. 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 There is moderate cervical spondylosis. IMPRESSION: 1. Old infarcts in the cerebellum, right frontal lobe, and right frontoparietal region. 2. Moderate nonspecific cerebral white matter disease, which likely represents chronic small vessel i schemic disease. 3. 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 Severe stenosis of distal left vertebral artery. 4. 15% stenosis of the proximal right internal carotid artery relative to normal distal artery lumen diameter (NASCET criteria). 5. 0% stenosis of the proximal left internal carotid artery relative to normal distal artery lumen di ameter. 6. 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 Reviewed, dictated and finalized at location A. IMPRESSION: 1. Old infarcts in the cerebellum, right frontal lobe, and right frontoparietal region. 2. Moderate nonspecific cerebral white matter disease, which likely represents chronic small vessel ischemic disease. 3. 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 Severe stenosis of distal left vertebral artery. 4. 15% stenosis of the proximal right internal carotid artery relative to laura l distal artery lumen diameter (NASCET criteria). 5. 0% stenosis of the proximal left internal carotid artery relative to normal distal artery lumen diameter. 6. 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
--- NOTE | ~2020-01-28 | MR_ITS ---
EXAMINATION: MR brain/brain stem wo/w con DATE: 01/29/2020 10:53 INDICATION: Left hemiparesis. TECHNIQUE: Magnetic resonance imaging (MRI) of the brain and brainstem was performed without and with 14 mL MultiHance intravenous contrast. Sequences included sagittal and axial T1-weighted FSE, axial diffusion-weighted FS EPI, axial T2*-weighted GRE, axial T2-weighted FLAIR Propeller, and axial T2-we ighted Propeller. Postcontrast sequences included axial and coronal T1-weighted FSE. Apparent diffusi on coefficient (ADC) maps were created. COMPARISON: Brain MRI 12/08/2019 FINDINGS: There are old infarcts in the bilateral cerebellum. There is an old lacunar infarct in the best on the left. There is an old infarct in right frontal lobe. There is an old infarct in right fro ntoparietal region. There are scattered areas of nonspecific increased T2-weighted signal intensity i n the cerebral white matter. There is an old microhemorrhage in right temporal occipital region. Ther e is no acute ischemic infarct or abnormal mass lesion. The ventricles are normal in size. There is m ucosal thickening in the paranasal sinuses. There are likely changes of ocular lens replacement surge adonis. IMPRESSION: 1. Old infarcts involving the cerebellum, best, right frontal lobe, right frontoparietal region. 2. Stable moderate nonspecific cerebral white matter disease, which likely represents chronic small v essel ischemic disease. Reviewed, dictated and finalized at location A. IMPRESSION: 1. Old infarcts involving the cerebellum, best, right frontal lobe, right front oparietal region. 2. Stable moderate nonspecific cerebral white matter disease, which likely repr esents chronic small vessel ischemic disease.
[2020-01-28 18:38] VITALS: BP 166/98; PULSE 72; RESP 20; TEMP 36.6; O2SAT 97
--- NOTE | 2020-01-28 18:48 | ECG_ITS ---
Measurements Intervals [place] Rate: 67 P: 46 WV: 194 QRS: 10 QRSD: 94 T: 120 QT: 413 QTc: 437 Interpretive Statements SINUS RHYTHM ATRIAL PREMATURE COMPLEX BORDERLINE ST-T WAVE ABNORMALITY- ANTEROLAT/LAT LEADS BORDERLINE ECG Electronically Signed On 01-29-2020 7:07:54 CDT by Brandon Fraser D.O.
[2020-01-28 19:23] LABS: Basophils Absolute Auto 0.1 K/mm3 (0.0-0.1); Basophils Percent Auto 0.7 % (0.2-1.2); Eosinophils Absolute Auto 0.2 K/mm3 (0-0.3); Eosinophils Percent Auto 2.5 % (0-4.4); Hematocrit 38.9 % (42.0-52.0); Hemoglobin 12.3 g/dL (14.0-18.0); Immature Granulocyte Absolute 0.03 K/mm3 (0.00-0.031); Immature Granulocyte Percent A 0.3 % (0-0.5); Lymphocytes Absolute Auto 1.01 K/mm3 (0.9-3.2); Lymphocytes Percent Auto 11.6 % (18.3-44.2); Mean Corpuscular HGB Conc 31.6 g/dl (32-36); Mean Corpuscular Hemoglobin 26.7 pg (26-34); Mean Corpuscular Volume 84.6 fl (80-100); Mean Platelet Volume 9.7 fl (7.4-10.4); Monocytes Absolute Auto 0.7 K/mm3 (0.1-0.6); Monocytes Percent Auto 8.1 % (2.6-8.5); Neutrophils Absolute Auto 6.7 K/mm3 (1.3-6.7); Neutrophils Percent Auto 76.8 % (45.5-73.1); Platelet Count Result 239 k/mm3 (150-375); Red Cell Distribution Width 15.1 % (11.5-14.5); White Blood Count 8.7 K/mm3 (4.5-10.0)
[2020-01-28 19:34] LABS: Alanine Aminotransferase 8 U/L (4-50); Albumin Level 3.6 g/dL (3.5-5.1); Alkaline Phosphatase 64 U/L (38-126); Aspartate Amino Transferase 21 U/L (17-59); Bilirubin,Total 0.3 mg/dL (0.2-1.3); Blood Urea Nitrogen 22 mg/dL (9-20); Calcium 8.4 mg/dL (8.4-10.2); Carbon Dioxide 28 mmol/L (22-30); Chloride 106 mmol/L (98-107); Estimated CRCL calculation 39 ml/min; Estimated Glomerular Filt Rate 49; Glucose 97 mg/dL (75-110); Potassium 4.1 mmol/L (3.4-5.0); Sodium 138 mmol/L (137-145)
--- NOTE | 2020-01-28 19:36 | ED.NEUROSD ---
HPI - Neuro Symptoms/Deficit General Chief Complaint: Neuro Symptoms/Deficit Stated Complaint: Tingling to left side - resolved Time Seen by Provider: 01/28/20 19:03 Source: patient, family and EMS Mode of arrival: EMS Limitations: no limitations History of Present Illness HPI Narrative: This patient is an 79 year old male with h/o CABG, CVA, TIA who presents with complaint of recurrent left side numbness and tingling . Patient states around 10am this morning he had a brief episode in which is left face, left arm and left leg were numb and tingling . Those symptoms disappeared but reappeared at 549 pm tonight. He texted his family member and he called EMS. He states his symptoms have resolved again. He reported associated left side weakness at that time but those symptoms have resolved as well. He also states he had some nonradiating chest tightness. He was hospitalized in November 2019 for similar symptoms and he was diagnosed with a TIA. He was found to be in atrial fibrillation and he was started on Eliquis. Time: 17:49 Timing confirmed by: family member Location: left face, left arm and left leg History of same: Yes Quality: weak, numb and tingling Context: sudden onset On Anticoagulants: Yes Related Data Home Medications Medication Instructions Recorded Confirmed alendronate 70 mg PO WEEKLY 12/08/19 01/28/20 amlodipine 5 mg PO DAILY 12/08/19 01/28/20 aspirin [Aspir-81] 81 mg PO DAILY 12/08/19 01/28/20 cholecalciferol (vitamin D3) 2,000 unit PO DAILY 12/08/19 01/28/20 diclofenac sodium 2 g TOPICAL BID PRN 12/08/19 01/28/20 dorzolamide-timolol 1 drp LEFTEYE BID 12/08/19 01/28/20 hydrophilic cream 1 applic TOPICAL DAILY 12/08/19 01/28/20 leflunomide 20 mg PO DAILY 12/08/19 01/28/20 pravastatin 40 mg PO DAILY 12/08/19 01/28/20 prednisolone acetate 1 drp LEFTEYE TID 12/08/19 01/28/20 prednisone 5 mg PO DAILY 12/08/19 01/28/20 tofacitinib 5 mg PO DAILY 12/08/19 01/28/20 Allergies Allergy/AdvReac Type Severity Reaction Status Date / Time atorvastatin Allergy Unknown Verified 01/28/20 18:45 hydroxychloroquine Allergy Unknown Verified 01/28/20 18:45 peanut Allergy Unknown Verified 01/28/20 18:45 Penicillins Allergy Unknown Verified 01/28/20 18:45 Sulfa (Sulfonamide Allergy Unknown Verified 01/28/20 18:45 Antibiotics) Review of Systems Review of Systems: All systems reviewed & are unremarkable except as noted in HPI and below Constitutional: Constitutional: Denies chills and Denies fever(s) Eyes: Eyes: Reports no additional eye complaints ENT: Denies dizziness and Denies epistaxis Cardiovascular: Cardiovascular: Reports chest pain and Denies radiating jaw, neck or arm pain Respiratory: Respiratory: Denies cough and Denies dyspnea Gastrointestinal: Gastrointestinal: Denies abdominal pain, Denies nausea and Denies vomiting Neurologic: Denies dizziness, Denies headache(s), Reports numbness and Reports weakness PMFSH Past Medical History Medical History CAD (coronary artery disease) Carotid stenosis Dry skin High cholesterol History of stroke Hypertension Inflammatory and immune myopathies Osteoarthritis Rheumatoid arthritis Vitamin D deficiency Surgical History Surgical History Hx of CABG pt and daughter said he had a NC during angiogram and had sternotomy and had 8 stents Family History Family History Father Acute myocardial infarction Hypertension Mother Acute myocardial infarction Social History Social History Social History: Patient has not smoked or drink alcohol since 1999. 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 He designates his daughter Yoko as his surrogate decision maker. He would like to be a full code. Smoking status: Former smoker Tobacco type: cigarettes Se
[2020-01-28 21:38] LABS: Troponin I 0.013 ng/mL (0.000-0.034)
[2020-01-28 21:44] LABS: INR 1.1
[2020-01-28 21:45] LABS: Partial Thromboplastin Time 34.8 SECONDS (22.3-36.8)
[2020-01-28 22:12] VITALS: BP 186/72; PULSE 64; RESP 20; TEMP 36.7; O2SAT 98
[2020-01-28 22:51] VITALS: BP 167/93; PULSE 64; RESP 20; O2SAT 96
--- NOTE | 2020-01-28 23:46 | ADMGEN ---
This patient, Jose Maria Baker, was admitted to Medical Room 258-01. Patient/family oriented to hospital policies and general routines including ID bracelet, bed and alarms, visiting hours, pain management, procedures, bathroom and other care routines, personal items, smoking policy, room service/diet, and visiting hours. Valuables list has been completed. Information on how to activate the Rapid Response Team has been discussed. Patient/Family are encouraged to report perceived risks to care and to ask questions if they do not understand what they are told or what they should do.
[2020-01-28 23:57] VITALS: BMI 22.6
[2020-01-28 23:58] VITALS: BP 205/89; PULSE 67; RESP 18; TEMP 36.4; O2SAT 98
[2020-01-29] VITALS (9 sets, daily range): BP systolic 115–151; BP diastolic 67–70; PULSE 58–76; RESP 18–20; TEMP 36.2–36.4; O2SAT 95–98
--- NOTE | 2020-01-29 01:09 | PM.IMHP ---
H&P: HPI History of Present Illness Chief complaint: TIA Narrative: This is an 79 year old male with known history of previous CVA, TIA, CABG, hyperlipidemia who presented to the [facility] for a return visit for recurrent left sided numbness and slurred speech. The patient was recently admitted in November of this year for similar symptoms. Around 10 am yesterday morning he experiences left face, left arm and left leg numbness and tingling that lasted less than 10 minutes in duration. His symptoms came back again around 6 pm and now he also experienced mild slurred speech. His symptoms at that time lasted approximately 15 minutes in duration. On arrival to the ER he also had associated left sided chest pain which has resolved. The patient is on Eliquis and denies missing any doses. On further questioning he also denies any recent falls, head trauma, seizure like activity, headache, fever, chills, nausea, vomiting diarrhea, abdominal pain, dysuria, hematuria, or rectal bleeding. On arrival to the ER the patient was found to have elevated blood pressure. Neurology has been consulted by ER provider and has asked that we admit the patient. Actually the patient is still asymptomatic. No other complaints. Review of Systems Review of Systems: All systems reviewed & are unremarkable except as noted in HPI and below PMFSH Past Medical History Medical History CAD (coronary artery disease) Carotid stenosis Dry skin High cholesterol History of stroke Hypertension Inflammatory and immune myopathies Osteoarthritis Rheumatoid arthritis Vitamin D deficiency Surgical History Surgical History Hx of CABG pt and daughter said he had a MD during angiogram and had sternotomy and had 8 stents Family History Family History Father Acute myocardial infarction Hypertension Mother Acute myocardial infarction Social History Social History Social History: Patient has not smoked or drink alcohol since 1999. 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 He designates his daughter Yoko as his surrogate decision maker. He would like to be a full code. Smoking status: Former smoker Tobacco type: cigarettes Second hand tobacco smoke exposure: Yes Smoking end date: 01/27/02 Alcohol intake: former Substance use: never Substance use type: does not use Gender identity (if verbalized by the patient): Male Spiritual care concerns: No Agree to blood products: Yes Meds Home Medications and Allergies Home Medications Medication Instructions Recorded Confirmed Type alendronate 70 mg PO WEEKLY 12/08/19 01/28/20 History amlodipine 5 mg PO DAILY 12/08/19 01/28/20 History aspirin [Aspir-81] 81 mg PO DAILY 12/08/19 01/28/20 History cholecalciferol (vitamin D3) 2,000 unit PO DAILY 12/08/19 01/28/20 History diclofenac sodium 2 g TOPICAL BID PRN 12/08/19 01/28/20 History dorzolamide-timolol 1 drp LEFTEYE BID 12/08/19 01/28/20 History hydrophilic cream 1 applic TOPICAL DAILY 12/08/19 01/28/20 History leflunomide 20 mg PO DAILY 12/08/19 01/28/20 History pravastatin 40 mg PO DAILY 12/08/19 01/28/20 History prednisolone acetate 1 drp LEFTEYE TID 12/08/19 01/28/20 History prednisone 5 mg PO DAILY 12/08/19 01/28/20 History tofacitinib 5 mg PO DAILY 12/08/19 01/28/20 History apixaban [Eliquis] 5 mg PO Q12HR #60 tablet 12/09/19 01/28/20 Rx metoprolol succinate [Toprol XL] 25 mg PO QAM #30 tablet 12/09/19 01/28/20 Rx Allergies Allergy/AdvReac Type Severity Reaction Status Date / Time atorvastatin Allergy Unknown Verified 01/28/20 18:45 hydroxychloroquine Allergy Unknown Verified 01/28/20 18:45 peanut Allergy Unknown Verified 01/28/20 18:45 Penicillins Allergy Unknown Verified 01/28/20 18:45 Sulfa (Sulfonamide Allergy Unknown Verified
[2020-01-29] MEDS: APIXABAN 5 MG TABLET PO ×2 (01:29→11:08)
[2020-01-29 05:24] LABS: Blood Urea Nitrogen 19 mg/dL (9-20); Calcium 8.3 mg/dL (8.4-10.2); Carbon Dioxide 28 mmol/L (22-30); Chloride 108 mmol/L (98-107); Estimated CRCL calculation 48 ml/min; Estimated Glomerular Filt Rate > 60; Glucose 91 mg/dL (75-110); Potassium 3.4 mmol/L (3.4-5.0); Sodium 139 mmol/L (137-145)
[2020-01-29 05:34] LABS: Magnesium 2.1 mg/dL (1.6-2.3)
[2020-01-29 05:39] LABS: Basophils Absolute Auto 0.1 K/mm3 (0.0-0.1); Basophils Percent Auto 0.7 % (0.2-1.2); Eosinophils Absolute Auto 0.3 K/mm3 (0-0.3); Eosinophils Percent Auto 3.5 % (0-4.4); Hematocrit 38.2 % (42.0-52.0); Hemoglobin 12.1 g/dL (14.0-18.0); Immature Granulocyte Absolute 0.02 K/mm3 (0.00-0.031); Immature Granulocyte Percent A 0.3 % (0-0.5); Lymphocytes Absolute Auto 0.93 K/mm3 (0.9-3.2); Lymphocytes Percent Auto 12.9 % (18.3-44.2); Mean Corpuscular HGB Conc 31.7 g/dl (32-36); Mean Corpuscular Hemoglobin 26.8 pg (26-34); Mean Corpuscular Volume 84.7 fl (80-100); Mean Platelet Volume 10.5 fl (7.4-10.4); Monocytes Absolute Auto 0.6 K/mm3 (0.1-0.6); Monocytes Percent Auto 8.4 % (2.6-8.5); Neutrophils Absolute Auto 5.4 K/mm3 (1.3-6.7); Neutrophils Percent Auto 74.2 % (45.5-73.1); Platelet Count Result 236 k/mm3 (150-375); Red Blood Count 4.51 M/mm3 (4.6-6.20); Red Cell Distribution Width 15.1 % (11.5-14.5); White Blood Count 7.2 K/mm3 (4.5-10.0)
[2020-01-29 05:53] LABS: Magnesium 2.1 mg/dL (1.6-2.3)
[2020-01-29] MEDS: AMLODIPINE BESYLATE 5 MG TABLET PO (08:30)
[2020-01-29] MEDS: predniSONE 5 MG TABLET PO (08:30)
[2020-01-29] MEDS: ASPIRIN 81 MG ENTERIC TABLET PO (08:30)
[2020-01-29] MEDS: CHOLECALCIFEROL 1,000 UNIT TABLET 2000 UNITS PO (08:31)
[2020-01-29] MEDS: EUCERIN CREAM 120 GM JAR 1 APPLIC TOPICAL (08:31)
[2020-01-29] MEDS: METOPROLOL SUCCINATE EXT REL 25 MG TABCR PO (08:31)
[2020-01-29] MEDS: LEFLUNOMIDE 20 MG TABLET PO (08:31)
[2020-01-29] MEDS: PRAVASTATIN SODIUM 20 MG TABLET 40 MG PO (08:32)
--- NOTE | 2020-01-29 12:20 | CONS_ITS ---
DATE OF CONSULTATION: 01/28/2020 HISTORY OF PRESENT ILLNESS: An 79-year-old right-handed male has been admitted to the hospital through the emergency room for the complaint of recurrent left-sided numbness along with the slurred speech. The patient was recently admitted to the hospital in November of this year for the same symptomatology. Around 10:00 a.m. yesterday, he experienced left-sided face, left arm and left leg numbness along with tingling sensation, lasting for about 10 minutes. The symptomatology returned around 6:00 p.m. along with the slurring of the speech, again lasting for about 15 minutes. When he came to the emergency room, he was complaining of left-sided chest discomfort. The patient has been on Eliquis and denied missing any specific dosage. He gave no history of any other associated symptomatology. As per the history, he carries a diagnoses of: 1. CVA. 2. TIA. 3. CABG. 4. Hyperlipidemia. 5. Carotid stenosis. 6. Inflammatory and immune myopathies. 7. Osteoarthritis with rheumatoid arthritis. 8. Vitamin D deficiencies. 9. He did have a history of CABG and had the placement of 8 stents during angiogram. SOCIAL HISTORY: He is a former smoker, former drinker. MEDICATIONS: His medications included: 1. Alendronate 70 mg weekly. 2. Amlodipine 5 mg daily. 3. Aspirin 81 mg daily. 4. Cholecalciferol 2000 units daily. 5. Diclofenac 2 g topical b.i.d. p.r.n. 6. Dorzolamide 1 drop in left eye b.i.d. 7. Hydrophilic cream 1 application daily. 8. Leflunomide 20 mg daily. 9. Pravastatin 40 mg daily. 10. Prednisone 1 drop in left eye t.i.d. 11. Prednisone 5 mg daily also. 12. Tofacitinib 5 mg daily. 13. Apixaban 5 mg q.12 hours. 14. Metoprolol 25 mg daily. ALLERGIES: HE IS ALLERGIC TO ATORVASTATIN, HYDROXYCHLOROQUINE, PEANUT, PENICILLIN, SULFA. PHYSICAL EXAMINATION: VITAL SIGNS: On evaluation, he is afebrile with temperature of 36.6, pulse 72, respirations 20, blood pressure 167/93. HEENT: Head normocephalic with no cranial bruits. Ear, nose, throat examination normal. NECK: Supple with no cervical bruits. No thyromegaly. No lymphadenopathy. HEART: Regular. LUNGS: Clear. ABDOMEN: Soft. No organomegaly. NEUROLOGICAL: He is awake, alert, oriented x3. Speech not dysphasic, not dysarthric, not dysphonic. Extremely cooperative person. Pupils round, regular. Fournier of vision full. Extraocular movements full. Face symmetrical. Tongue midline. Motor examination revealed no drift of one or other side. Reflexes symmetrical. Plantars downgoing. LABORATORY DATA: Evaluation up until now revealed CBC with WBC 8.7, hemoglobin 12.3, platelet count 239. Basic metabolic panel normal except creatinine of 1.40 that is borderline and the troponin is 0.013. Hepatic enzymes normal. At this stage, he is receiving his medication as such with the discontinuation of apixaban 5 mg q.12 hours. Raising the possibility of TIA, we will obtain the MRI to document if any further large vessel disease stroke. Otherwise, we will discuss with him about the anticoagulation therapy. Thank you very much. MARYCHUY MURDOCK M.D. CEMETERY MANAGER CEMETERY MANAGER D Feng MT: Ophelia
--- NOTE | 2020-01-29 16:31 | PM.DS ---
DS: Diagnosis Admitting Diagnosis Admitting Diagnosis: Anesthesia of skin Discharge Diagnosis (1) Left sided numbness: Code(s): R20.0 - Anesthesia of skin Status: Resolved Assessment and Plan: Resolved. Admit for observation for possible TIA. Neurochecks, Check electrolytes. Neurology consult in am. (2) PAF (paroxysmal atrial fibrillation): Code(s): I48.0 - Paroxysmal atrial fibrillation Status: Acute Assessment and Plan: Rate controlled. Continue Eliquis PO. Continue beta-curtis. (3) CAD (coronary artery disease), autologous vein bypass graft: Code(s): I25.810 - Atherosclerosis of coronary artery bypass graft(s) without angina pectoris Status: Acute Assessment and Plan: Continue ASA PO. (4) HLD (hyperlipidemia): Qualifiers: Hyperlipidemia type: unspecified Qualified Code(s): E78.5 - Hyperlipidemia, unspecified Code(s): E78.5 - Hyperlipidemia, unspecified Status: Acute Assessment and Plan: Continue statin therapy. (5) History of stroke: Code(s): Z86.73 - Personal history of transient ischemic attack (TIA), and cerebral infarction without residual deficits Status: Acute (6) Uncontrolled hypertension: Code(s): I10 - Essential (primary) hypertension Status: Acute Assessment and Plan: Monitor blood pressure. Continue oral antihypertensives. PRN hydralazine IV w/ parameters. DS: Summary Hospital Course Reason for hospitalization: Patient is an 79-year-old man with a history of CVA, TIA, CABG, hyperlipidemia who presented to the emergency room department after 2 episodes of left-sided numbness and slurred speech prior to arrival lasting about 10-15 minutes in duration. The patient was recently in the hospital in November for similar symptoms. Showed temperature of 97.8?, blood pressure 166/98, heart rate 72, respiratory rate 20, oxygen saturation 97% on room air. Initial labs showed Normal CBC other than slight normocytic anemia. Normal coag panel. CMP showed slight VICTORIANO with creatinine 1.4, BUN at 22, otherwise normal. Patient's troponin was 0.013. Patient's CT head showed old right frontal lobe infarcts, chronic age-related findings. Patient was admitted into the hospital for further evaluation of TIA versus acute CVA. Neurology was consulted from the emergency department. MRI brain showed no acute CVA, just old infarcts involving the cerebellum, best, right frontal lobe, right frontoparietal region. Stable moderate nonspecific cerebral white matter disease, which likely represents chronic small vessel ischemic disease. 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 Severe stenosis of distal left vertebral artery. 15% stenosis of the proximal right internal carotid artery relative to normal distal artery lumen diameter (NASCET criteria). 0% stenosis of the proximal left internal carotid artery relative to normal distal artery lumen diameter. The patient's blood pressure had also been elevated on arrival. Most likely his TIAs are secondary to his uncontrolled high blood pressure you and vertebral artery stenosis on the left and total occlusion on the right. Patient was started on Plavix, since aspirin has failed. Patient's blood pressure was stable prior to discharge at 134/68 and 115/67. I did not make any adjustments to his blood pressure regiment since it was well controlled at this time. From the patient of monitoring his blood pressure at home and following up with primary care and continuous towel roller within 1 week. The patient is on pravastatin for his cholesterol control in labs in November showed his LDL to be 76 which should be less than 70. I was going to adjust his statin medication but he reports an allergy to to of him and his daughter is unsure which ones. I will just have him follow-up with his continuous towel roller for the adjustments to his cholesterol meds.
== END 2020-01-29 18:00 | disposition home or self-care (01) ==
LOC: ANHED 19:03 → ANH2MED 01-29 07:43
PROVIDERS: Emergency Medicine; Admitting Provider Family Medicine; Emergency Provider General Practice; Visit Provider Physician Assistant
DX: G45.9 Transient cerebral ischemic attack, unspecified (principal); I10 Essential (primary) hypertension; I65.03 Occlusion and stenosis of bilateral vertebral arteries; I48.0 Paroxysmal atrial fibrillation; I25.810 Atherosclerosis of coronary artery bypass graft(s) without angina pectoris; E78.5 Hyperlipidemia, unspecified; E55.9 Vitamin D deficiency, unspecified; M06.9 Rheumatoid arthritis, unspecified; M19.90 Unspecified osteoarthritis, unspecified site; G72.49 Other inflammatory and immune myopathies, not elsewhere classified; Z79.01 Long term (current) use of anticoagulants; Z79.899 Other long term (current) drug therapy; Z86.73 Personal history of transient ischemic attack (TIA), and cerebral infarction without residual deficits; Z87.891 Personal history of nicotine dependence
CPT/HCPCS: 36415; 70450; 70496; 70498; 70553; 80048; 80053; 83735; 84484; 85025; 85610; 85730; 93005; 99285; A9270; A9577; G0378; J7512; Q9967

== ENCOUNTER 2021-09-10 18:13 | Emergency (ER) | payer OTHER, SELFPAY ==
[2021-09-10 18:45] VITALS: BP 129/63; PULSE 80; RESP 18; TEMP 36.1; O2SAT 96
--- NOTE | 2021-09-10 18:53 | PC.NURSE ---
pt and family decide to leave due to wait. will return if symptoms worsen. pt states he actually feels better than when he arrived
== END 2021-09-11 03:13 | disposition left against medical advice (07) ==
DX: Z53.21 Procedure and treatment not carried out due to patient leaving prior to being seen by health care provider (principal)
CPT/HCPCS: 99199

== ENCOUNTER 2022-11-11 09:49 | Emergency (ER) | payer OTHER, SELFPAY ==
[2022-11-11] VITALS (16 sets, daily range): BP systolic 129–163; BP diastolic 49–51; PULSE 51–61; RESP 14–19; TEMP 36.6; O2SAT 94–100
--- NOTE | ~2022-11-11 | XR_ITS ---
EXAMINATION: XR chest 2V DATE: 11/11/2022 12:29 INDICATION: Chest pain TECHNIQUE: PA and lateral views of the chest were obtained. COMPARISON: Chest radiograph dated 12/08/19 FINDINGS: Calcified nodules in the bilateral lower lung zones and calcified bilateral hilar lymph nodes consist ent with old granulomatous disease. No other airspace opacities, pulmonary edema size is normal. Tort uous thoracic aorta. Median sternotomy wires which could be related to prior coronary artery bypass g rafting. Moderate thoracic spondylosis. IMPRESSION: 1. No acute cardiopulmonary disease. Reviewed, dictated and finalized at location A. ER PICKER
--- NOTE | ~2022-11-11 | XR_ITS ---
Lumbosacral Spine: AP and lateral views Clinical History: Pain Findings: The normal lordotic curve is maintained. No acute fracture seen. There is advanced degenera tive disc disease at L2-L3 with minimal grade 1 retrolisthesis at this level. There are facet joint d egenerative changes throughout the lumbar spine, worst at L4-L5 and L5-S1. Extensive aortic atheroscl erotic calcifications are present. The sacroiliac joints are normally outlined. Impression: No fracture. Degenerative spondylitic changes, as above. Minimal grade 1 retrolisthesis of L2 over L3. Reviewed, dictated and finalized at location M. NESS OBJECTS CONSULTANT Impression: No fracture. Degenerative spondylitic changes, as above. Minimal grade 1 retrolisthesis of L2 over L3.
--- NOTE | 2022-11-11 10:05 | ECG_ITS ---
Measurements Intervals [place] Rate: 59 P: 50 RI: 187 QRS: 59 QRSD: 97 T: 46 QT: 439 QTc: 438 Interpretive Statements SINUS BRADYCARDIA NONSPECIFIC ST & T-WAVE ABNORMALITY COMPARED TO ECG 01/28/2020 18:44:35 NO SIGNIFICANT DIFFERENCE Electronically Signed On 11-11-2022 15:30:40 CONSERVATION POLICY ANALYST by Jesus Westbrook M.D.
[2022-11-11 12:20] LABS: Basophils Absolute Auto 0.1 K/mm3 (0.0-0.1); Basophils Percent Auto 0.5 % (0.2-1.2); Eosinophils Percent Auto 0.2 % (0-4.4); Hematocrit 41.6 % (42.0-52.0); Immature Granulocyte Absolute 0.06 K/mm3 (0.00-0.031); Immature Granulocyte Percent A 0.5 % (0-0.5); Lymphocytes Absolute Auto 1.63 K/mm3 (0.9-3.2); Lymphocytes Percent Auto 13.5 % (18.3-44.2); Mean Corpuscular HGB Conc 31.3 g/dl (32-36); Mean Corpuscular Hemoglobin 25.4 pg (26-34); Mean Corpuscular Volume 81.4 fl (80-100); Mean Platelet Volume 9.2 fl (7.4-10.4); Monocytes Absolute Auto 0.8 K/mm3 (0.1-0.6); Monocytes Percent Auto 6.8 % (2.6-8.5); Neutrophils Absolute Auto 9.5 K/mm3 (1.3-6.7); Neutrophils Percent Auto 78.5 % (45.5-73.1); Platelet Count Result 363 k/mm3 (150-375); Red Blood Count 5.11 M/mm3 (4.6-6.20); Red Cell Distribution Width 16.2 % (11.5-14.5); White Blood Count 12.1 K/mm3 (4.5-10.0)
[2022-11-11] MEDS: MORPHINE SULFATE (*CRX) 2 MG/ML INJ IV PUSH (12:21)
[2022-11-11 12:30] LABS: Alanine Aminotransferase 15 U/L (6-50); Albumin Level 4.1 g/dL (3.5-5.1); Alkaline Phosphatase 66 U/L (38-126); Anion Gap 6 mmol/L (8-16); Aspartate Amino Transferase 33 U/L (17-59); Bilirubin,Total 0.4 mg/dL (0.2-1.3); Blood Urea Nitrogen 33 mg/dL (9-20); Calcium 8.9 mg/dL (8.4-10.2); Carbon Dioxide 30 mmol/L (22-30); Chloride 105 mmol/L (98-107); Estimated CRCL calculation 33 ml/min; Estimated Glomerular Filt Rate 45; Glucose 89 mg/dL (65-110); Potassium 3.8 mmol/L (3.4-5.0); Sodium 141 mmol/L (137-145)
[2022-11-11 12:35] LABS: INR 1.2; Prothrombin Time 14.5 Seconds (11.1-14.7)
[2022-11-11 12:36] LABS: Partial Thromboplastin Time 30.7 SECONDS (22.3-36.8)
[2022-11-11 12:41] LABS: Troponin I 0.017 ng/mL (0.000-0.034)
--- NOTE | 2022-11-11 15:03 | ED.BACK ---
HPI - Back Pain/Injury General Chief Complaint: Back Pain/Injury Stated Complaint: back, hip pain Time Seen by Provider: 11/11/22 11:26 History of Present Illness HPI Narrative: Patient is an 82-year-old male who presents to the ER with 2 complaints. First pain is right low back and hip pain. Radiates down the right side. Has some tingling over the aviles. No known trauma. It is progressive the last week. Has been on prednisone without improvement. Has worsening pain with going from sitting to standing. Patient reports when he starts ambulating he starts getting pain in his hip and then he starts getting central chest pain and shortness of breath. If he sits down everything resolves. Patient has history of SC in the past and has 8 stents. He is also undergone open heart surgery. Reports stress test 8 months ago that was normal. Receives his care at the NH. Related Data Home Medications Medication Instructions Recorded Confirmed alendronate 70 mg tablet 70 mg PO WEEKLY 12/08/19 01/28/20 amlodipine 5 mg tablet 5 mg PO DAILY 12/08/19 01/28/20 cholecalciferol (vitamin D3) 50 2,000 unit PO DAILY 12/08/19 01/28/20 mcg (2,000 unit) chewable tablet diclofenac sodium 1 % topical gel 2 g topical BID PRN Pain 12/08/19 01/28/20 dorzolamide 22.3 mg-timolol 6.8 1 drp LEFT EYE BID 12/08/19 01/28/20 mg/mL eye drops hydrophilic cream 1 applic topical DAILY 12/08/19 01/28/20 leflunomide 20 mg tablet 20 mg PO DAILY 12/08/19 01/28/20 pravastatin 40 mg tablet 40 mg PO DAILY 12/08/19 01/28/20 prednisolone acetate 1 % eye 1 drp LEFT EYE TID 12/08/19 01/28/20 drops,suspension prednisone 5 mg tablet 5 mg PO DAILY 12/08/19 01/28/20 tofacitinib 5 mg tablet 5 mg PO DAILY 12/08/19 01/28/20 Allergies Allergy/AdvReac Type Severity Reaction Status Date / Time atorvastatin Allergy Unknown Verified 01/28/20 18:45 hydroxychloroquine Allergy Unknown Verified 01/28/20 18:45 peanut Allergy Unknown Verified 01/28/20 18:45 Penicillins Allergy Unknown Verified 01/28/20 18:45 Sulfa (Sulfonamide Allergy Unknown Verified 01/28/20 18:45 Antibiotics) Review of Systems Review of Systems: All systems reviewed & are unremarkable except as noted in HPI and below Constitutional: Constitutional: Denies chills, Denies fatigue and Denies fever(s) ENT: Denies nasal congestion and Denies sore throat Cardiovascular: Cardiovascular: Reports chest pain, Denies rapid heart rate and Denies radiating jaw, neck or arm pain Respiratory: Respiratory: Denies cough, Reports dyspnea and Denies wheezing Gastrointestinal: Gastrointestinal: Denies abdominal pain, Denies nausea and Denies vomiting Musculoskeletal: Musculoskeletal: Reports back pain, Denies arthralgias and Denies joint swelling Neurologic: Denies syncope and Denies focal weakness Comments: RLE paresthesia [facility] Past Medical History Medical History (Updated 11/11/22 @ 15:06 by Cezar Saldaña MD) CAD (coronary artery disease) Carotid stenosis Dry skin High cholesterol History of stroke Hypertension Inflammatory and immune myopathies Osteoarthritis Rheumatoid arthritis Vitamin D deficiency Surgical History Surgical History Hx of CABG pt and daughter said he had a SC during angiogram and had sternotomy and had 8 stents Family History Family History Father Acute myocardial infarction Hypertension Mother Acute myocardial infarction Social History Social History Social History: Patient has not smoked or drink alcohol since 1999. 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 He designates his daughter Yoko as his surrogate decision maker. He would like to be a full code. Smoking status: Former smoker Tobacco type: cigarettes Second hand tobacco smoke exposure: Yes Smoking end date: 01/27/02 Alcohol intake: former S
== END 2022-11-11 18:37 | disposition left against medical advice (07) ==
PROVIDERS: Emergency Provider Emergency Medicine; PCP Family Medicine
DX: M54.41 Lumbago with sciatica, right side (principal); R07.9 Chest pain, unspecified; I25.2 Old myocardial infarction; I25.10 Atherosclerotic heart disease of native coronary artery without angina pectoris; I65.29 Occlusion and stenosis of unspecified carotid artery; I10 Essential (primary) hypertension; E78.00 Pure hypercholesterolemia, unspecified; E55.9 Vitamin D deficiency, unspecified; M06.9 Rheumatoid arthritis, unspecified; M19.90 Unspecified osteoarthritis, unspecified site; Z86.73 Personal history of transient ischemic attack (TIA), and cerebral infarction without residual deficits; Z95.5 Presence of coronary angioplasty implant and graft; Z87.891 Personal history of nicotine dependence; R94.31 Abnormal electrocardiogram [ECG] [EKG]; R00.1 Bradycardia, unspecified
CPT/HCPCS: 36415; 71046; 72100; 80053; 84484; 85025; 85610; 85730; 93005; 96374; 99284; J2270

== ENCOUNTER 2023-06-10 15:00 | Inpatient (IN) | payer OTHER, SELFPAY ==
[2023-06-10] VITALS (34 sets, daily range): BP systolic 112–176; BP diastolic 51–70; PULSE 70–95; RESP 12–24; TEMP 36.4–38.2; O2SAT 94–100; BMI 20.5; BMI 19.4
--- NOTE | ~2023-06-10 | XR_ITS ---
XR chest 1V portable 06/14/2023 11:33 Indication: Pneumonia and shortness of breath Procedure: 2 view chest Comparison: 06/10/2023 Findings: Status post median sternotomy for CABG. There are bilateral calcified granulomas of the theresa gs. There is left lower lobe airspace disease which may represent atelectasis or pneumonia. No signif icant pleural effusion. No pneumothorax. No acute osseous abnormality. The lungs are hyperinflated which is consistent with, but not diagnostic of chronic obstructive pulmo nary disease. Impression: 1: Persistent left lower lobe pneumonia. Reviewed, dictated and finalized at location B. Impression: 1: Persistent left lower lobe pneumonia.
--- NOTE | ~2023-06-10 | XR_ITS ---
EXAMINATION: XR chest 2V Exam Date/Time: 06/10/2023 15:25 CDT HISTORY: chest pain, short of breath Comparison: 11/11/2022. RESULT: Lines, tubes, and devices: Intact sternotomy wires. Lungs and pleura: Segmental left lower lobe airspace disease. Senescent change. Old granulomatous di sease. Cardiomediastinal silhouette: Stable. Other: No acute osseous or upper abdominal finding. IMPRESSION: Left lower lobe airspace disease may represent the consolidation of pneumonia in the appropriate cont ext. Reviewed, dictated and finalized at location K. IMPRESSION: Left lower lobe airspace disease may represent the consolidation of pneumonia i n the appropriate context.
--- NOTE | 2023-06-10 15:01 | ECG_ITS ---
Measurements Intervals [place] Rate: 90 P: 45 NV: 198 QRS: 26 QRSD: 89 T: 81 QT: 344 QTc: 422 Interpretive Statements SINUS RHYTHM POSSIBLE LEFT ATRIAL ENLARGEMENT ANTEROSEPTAL INFARCT, AGE INDETERMINATE ST-T WAVE ABNORMALITY IN ANTEROLATERAL LEADS- CONSIDER ISCHEMIA BASELINE WANDER- AVL, AVF, V3 ABNORMAL ECG COMPARED TO ECG 11/11/2022 10:08:51 SINUS RHYTHM NOW PRESENT MYOCARDIAL INFARCT FINDING NOW PRESENT ST-T WAVE ABNORMALITY NOW PRESENT Electronically Signed On 06-10-2023 18:06:26 CDT by Brandon Fraser D.O.
--- NOTE | 2023-06-10 15:07 | ED.CHESTPAIN ---
HPI - Chest Pain General Chief Complaint: Chest Pain Stated Complaint: Chest pain Time Seen by Provider: 06/10/23 15:07 History of Present Illness HPI narrative: Patient is an 83-year-old male history of AFib on eliquis, CAD status post PCI x8 on plavix, hypertension here with chest pain. Patient states that chest pain began last evening. Notes that it is located mid chest, nonradiating and is a heaviness. He notes that he took nitroglycerin last night and it resolved symptoms. This morning for breakfast it began again around 6:00 a.m. in the morning. He once again took nitroglycerin and resolved. The chest pain began again this afternoon which prompted him to notify his daughter and be brought into the emergency department. He notes that the chest pain is currently midsternal, heavy, nonradiating and moderate in severity. He has some associated shortness of breath, no diaphoresis or lightheadedness. He is additionally complaining of a cough which began Last week. He saw his primary care doctor for it and they thought it was allergies at that time. It seems to have worsened yesterday per patient. He denies any subjective fever chills however he was febrile in triage 100.7. He denies any known sick contacts. No lower extremity swelling present. [facility], his prior stents were placed many years ago somewhere in [place]. He denies urinary changes, no diarrhea. Daughter does note that yesterday they went to get their toe nails trimmed and he suffered an abrasion to his left great toe. Related Data Home Medications Medication Instructions Recorded Confirmed alendronate 70 mg tablet 70 mg PO WEEKLY 12/08/19 06/10/23 amlodipine 5 mg tablet 5 mg PO DAILY 12/08/19 06/10/23 cholecalciferol (vitamin D3) 50 2,000 unit PO DAILY 12/08/19 06/10/23 mcg (2,000 unit) chewable tablet leflunomide 20 mg tablet 20 mg PO DAILY 12/08/19 06/10/23 tofacitinib 5 mg tablet 5 mg PO DAILY 12/08/19 06/10/23 calcium carbonate 500 mg calcium 500 mg PO DAILY 12/06/22 06/10/23 (1,250 mg) chewable tablet (Calcium 500) lisinopril 20 mg tablet 20 mg PO DAILY 12/06/22 06/10/23 nitroglycerin 0.4 mg sublingual 0.4 mg sublingual Q5M PRN Chest 12/06/22 06/10/23 tablet Pain Allergies Allergy/AdvReac Type Severity Reaction Status Date / Time atorvastatin Allergy Unknown Verified 06/10/23 15:06 hydroxychloroquine Allergy Unknown Verified 06/10/23 15:06 peanut Allergy Unknown Verified 06/10/23 15:06 Penicillins Allergy Unknown Verified 06/10/23 15:06 Sulfa (Sulfonamide Allergy Unknown Verified 06/10/23 15:06 Antibiotics) Review of Systems Review of Systems: CONSTITUTIONAL: Denies fever, chills, or sweats. EYES: Denies visual changes, redness, or discharge. ENT: Denies rhinorrhea, congestion, sore throat, or otalgia. CARDIOVASCULAR: chest pain, no palpitations or edema. RESPIRATORY: cough and dyspnea. GASTROINTESTINAL: Denies abdominal pain, nausea, vomiting, or diarrhea. GENITOURINARY: Denies dysuria or hematuria. SKIN: Denies rash or itching. Wound to left great toe. MUSCULOSKELETAL: Denies back pain, joint pain, or myalgia. NEUROLOGIC: Denies headache, numbness, or weakness. PSYCHIATRIC: Denies anxiety or depression. FOR[facility]LY [facility], [facility] Past Medical History Medical History (Updated 06/10/23 @ 16:40 by Diane Verduzco MD) CAD (coronary artery disease) Carotid stenosis Dry skin High cholesterol History of stroke Hypertension Inflammatory and immune myopathies Osteoarthritis Rheumatoid arthritis Vitamin D deficiency Surgical History Surgical History Hx of CABG pt and daughter said he had a NV during angiogram and had sternotomy and had 8 stents Family History Family History Father Acute myocardial infarction Hypertension Mother Acute myocardial infarction Social History Social History (Rev
--- NOTE | 2023-06-10 15:12 | ECG_ITS ---
Measurements Intervals [place] Rate: 87 P: 49 MA: 172 QRS: 55 QRSD: 90 T: 54 QT: 365 QTc: 441 Interpretive Statements SINUS RHYTHM CANNOT RULE OUT SEPTAL INFARCT, AGE INDETERMINATE ST-T WAVE ABNORMALITY IN INFERIOR LEADS- CONSIDER ISCHEMIA BASELINE ARTIFACT- I, II, III, AVR, AVL, V4 ABNORMAL ECG COMPARED TO ECG 06/10/2023 15:07:42 NO SIGNIFICANT CHANGES Electronically Signed On 06-10-2023 18:08:35 CDT by Brandon Fraser D.O.
[2023-06-10 15:18] LABS: Basophils Absolute Auto 0.1 K/mm3 (0.0-0.1); Basophils Percent Auto 0.6 % (0.2-1.2); Eosinophils Absolute Auto 0.1 K/mm3 (0-0.3); Eosinophils Percent Auto 0.9 % (0-4.4); Hematocrit 36.9 % (42.0-52.0); Hemoglobin 11.5 g/dL (14.0-18.0); Immature Granulocyte Absolute 0.06 K/mm3 (0.00-0.031); Immature Granulocyte Percent A 0.5 % (0-0.5); Lymphocytes Absolute Auto 1.03 K/mm3 (0.9-3.2); Lymphocytes Percent Auto 8.1 % (18.3-44.2); Mean Corpuscular HGB Conc 31.2 g/dl (32-36); Mean Corpuscular Hemoglobin 25.1 pg (26-34); Mean Corpuscular Volume 80.4 fl (80-100); Mean Platelet Volume 9.9 fl (7.4-10.4); Monocytes Absolute Auto 0.7 K/mm3 (0.1-0.6); Monocytes Percent Auto 5.2 % (2.6-8.5); Neutrophils Absolute Auto 10.7 K/mm3 (1.3-6.7); Neutrophils Percent Auto 84.7 % (45.5-73.1); Platelet Count Result 365 k/mm3 (150-375); Red Blood Count 4.59 M/mm3 (4.6-6.20); Red Cell Distribution Width 16.9 % (11.5-14.5); White Blood Count 12.7 K/mm3 (4.5-10.0)
[2023-06-10 15:28] LABS: INR 1.1; Prothrombin Time 14.8 Seconds (11.1-14.7)
[2023-06-10 15:29] LABS: Partial Thromboplastin Time 40.8 SECONDS (22.3-36.8)
[2023-06-10 15:31] LABS: Alanine Aminotransferase 12 U/L (6-50); Albumin Level 3.7 g/dL (3.5-5.1); Alkaline Phosphatase 68 U/L (38-126); Anion Gap 7 mmol/L (8-16); Aspartate Amino Transferase 28 U/L (17-59); Bilirubin,Total 0.6 mg/dL (0.2-1.3); Blood Urea Nitrogen 22 mg/dL (9-20); Carbon Dioxide 27 mmol/L (22-30); Chloride 106 mmol/L (98-107); Estimated CRCL calculation 28 ml/min; Estimated Glomerular Filt Rate 45; Glucose 105 mg/dL (65-110); Lipase 106 U/L (23-300); Potassium 3.7 mmol/L (3.4-5.0); Sodium 140 mmol/L (137-145)
[2023-06-10 15:37] LABS: Lactic Acid Reflex 1.3 mmol/L (0.7-2.0)
[2023-06-10 15:43] LABS: Appearance Urine Clear (Clear); Bilirubin Urine Negative (Negative); Blood Urine Negative (Negative); Color Urine Yellow (Yellow); Glucose Urine UA Negative (Negative); Ketones Urine Negative (Negative); Leukocyte Esterase Ur Negative LEU/UL (Negative); Nitrate Urine Negative (Negative); Protein Urine Negative (Negative); Specific Grav Ur 1.012 (1.001-1.035); Urobilinogen Urine 0.2 mg/dL (<2.0); pH Urine 6.5 (5.0-9.0)
[2023-06-10 15:44] LABS: Troponin I 0.186 ng/mL (0.000-0.034)
[2023-06-10 15:44] LABS: Add Urine Microscopic? NO
[2023-06-10] MEDS: NITROGLYCERIN SL 0.4 MG TABLET SUBLINGUAL (15:47)
[2023-06-10 16:27] LABS: Influenza A QL RT-PCR Negative (Negative); Influenza B QL RT-PCR Negative (Negative); RSV RNA, RT-PCR Negative (Negative); SARS-CoV-2 RNA PCR Positive (Negative)
[2023-06-10] MEDS: HEPARIN SOD/D5W 100 UNITS/ML 25,000 UNITS/250 ML BAG 7 UNITS IV CONT (16:30)
--- NOTE | 2023-06-10 16:59 | PM.IMHP ---
H&P: HPI History of Present Illness Date/Time: 06/10/23 16:59 Chief Complaint: chest pain and shortness of breath Narrative: This is an 83-year-old male patient with a past history of coronary artery disease with stenting x8 carotid stenosis status post carotid endarterectomy stroke, elevated cholesterol, hypertension and rheumatoid arthritis who presents to the emergency department with complaints of chest pain and shortness of breath. Patient reported that yesterday he had some chest pain that was relieved by nitroglycerin. That returned again today and was accompanied by shortness of breath and cough. While in the emergency department patient was found to have a left lower lobe pneumonia at a positive troponin. Cardiology was consulted, appreciate recommendations. Patient was placed on a heparin drip. COVID test was positive. Patient denies any nausea vomiting bowel or bladder problems. Patient will be admitted to the IMU with Cardiology consult. Review of Systems Review of Systems: All systems reviewed & are unremarkable except as noted in HPI and below PMFSH Past Medical History Medical History CAD (coronary artery disease) Carotid stenosis Dry skin High cholesterol History of stroke Hypertension Inflammatory and immune myopathies Osteoarthritis Rheumatoid arthritis Vitamin D deficiency Surgical History Surgical History Hx of CABG pt and daughter said he had a [place] during angiogram and had sternotomy and had 8 stents Family History Family History Father Acute myocardial infarction Hypertension Mother Acute myocardial infarction Social History Social History Social History: Patient has not smoked or drink alcohol since 1999. 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 He designates his daughter Yoko as his surrogate decision maker. He would like to be a full code. Smoking status: Former smoker Tobacco type: cigarettes Second hand tobacco smoke exposure: Yes Smoking end date: 01/27/02 Alcohol intake: former Substance use: never Substance use type: does not use Gender identity (if verbalized by the patient): Male Spiritual care concerns: No Agree to blood products: Yes Meds Home Medications and Allergies Home Medications Medication Instructions Recorded Confirmed Type alendronate 70 mg tablet 70 mg PO WEEKLY 12/08/19 06/10/23 History amlodipine 5 mg tablet 5 mg PO DAILY 12/08/19 06/10/23 History cholecalciferol (vitamin D3) 50 2,000 unit PO DAILY 12/08/19 06/10/23 History mcg (2,000 unit) chewable tablet leflunomide 20 mg tablet 20 mg PO DAILY 12/08/19 06/10/23 History tofacitinib 5 mg tablet 5 mg PO DAILY 12/08/19 06/10/23 History apixaban 5 mg tablet (Eliquis) 5 mg PO Q12HR #60 tabs 12/09/19 06/10/23 Rx metoprolol succinate 25 mg 25 mg PO QAM #30 tabs 12/09/19 06/10/23 Rx tablet,extended release 24 hr (Toprol XL) clopidogrel 75 mg tablet (Plavix) 75 mg PO DAILY #30 tabs 01/29/20 06/10/23 Rx calcium carbonate 500 mg calcium 500 mg PO DAILY 12/06/22 06/10/23 History (1,250 mg) chewable tablet (Calcium 500) lisinopril 20 mg tablet 20 mg PO DAILY 12/06/22 06/10/23 History nitroglycerin 0.4 mg sublingual 0.4 mg sublingual Q5M PRN Chest 12/06/22 06/10/23 History tablet Pain Allergies Allergy/AdvReac Type Severity Reaction Status Date / Time atorvastatin Allergy Unknown Verified 06/10/23 15:06 hydroxychloroquine Allergy Unknown Verified 06/10/23 15:06 peanut Allergy Unknown Verified 06/10/23 15:06 Penicillins Allergy Unknown Verified 06/10/23 15:06 Sulfa (Sulfonamide Allergy Unknown Verified 06/10/23 15:06 Antibiotics) Vital Signs Vital Signs - 24 hr 06/10/23 15:06 06/10/23 15:04 06/10/23 15:05 Temperature 38.2 C H
[2023-06-10] MEDS: AZITHROMYCIN 500 MG/NS 250 ML 500 MG/250 ML BAG 250 MG IVPB (17:27)
[2023-06-10] MEDS: ACETAMINOPHEN 325 MG TABLET 650 MG PO (17:38)
[2023-06-10 18:34] LABS: Troponin I 0.194 ng/mL (0.000-0.034)
[2023-06-10] MEDS: REMDESIVIR 200 MG/NS 250 ML 200 MG/250 ML BAG 250 MG IVPB (18:59)
[2023-06-10 19:19] LABS: INR 1.2; Prothrombin Time 15.7 Seconds (11.1-14.7)
[2023-06-10 19:20] LABS: Alanine Aminotransferase 11 U/L (6-50); Estimated CRCL calculation 30 ml/min; Estimated Glomerular Filt Rate 48
--- NOTE | 2023-06-10 19:31 | PC.NURSE ---
This RN assumed care of patient. This RN took patient report from JANUSZ Amaro.
[2023-06-10] MEDS: cefTRIAXone 2 GM/NS 100 ML 2 GM/100 ML BAG IVPB (20:09)
[2023-06-10 22:34] LABS: Partial Thromboplastin Time 47.3 SECONDS (22.3-36.8)
[2023-06-10] MEDS: HEPARIN SODIUM 5,000 UNITS/ML VIAL 4000 UNITS IV PUSH (22:53)
[2023-06-10 22:55] LABS: Troponin I 0.198 ng/mL (0.000-0.034)
--- NOTE | 2023-06-10 23:24 | ADMGEN ---
This patient, Jose Maria Baker, was admitted to IMU Room 201-01. @ 2120 Patient/family oriented to hospital policies and general routines including ID bracelet, bed and alarms, visiting hours, pain management, procedures, bathroom and other care routines, personal items, smoking policy, room service/diet, and visiting hours. Information on how to activate the Rapid Response Team has been discussed. Patient/Family are encouraged to report perceived risks to care and to ask questions if they do not understand what they are told or what they should do.
[2023-06-11] VITALS (18 sets, daily range): BP systolic 105–125; BP diastolic 51–72; PULSE 64–81; RESP 12–20; TEMP 36.1–36.7; O2SAT 94–99
[2023-06-11 05:06] LABS: Basophils Absolute Auto 0.1 K/mm3 (0.0-0.1); Basophils Percent Auto 0.6 % (0.2-1.2); Eosinophils Absolute Auto 0.1 K/mm3 (0-0.3); Eosinophils Percent Auto 0.8 % (0-4.4); Hematocrit 34.8 % (42.0-52.0); Hemoglobin 10.9 g/dL (14.0-18.0); Immature Granulocyte Absolute 0.07 K/mm3 (0.00-0.031); Immature Granulocyte Percent A 0.5 % (0-0.5); Lymphocytes Absolute Auto 1.08 K/mm3 (0.9-3.2); Lymphocytes Percent Auto 7.5 % (18.3-44.2); Mean Corpuscular HGB Conc 31.3 g/dl (32-36); Mean Corpuscular Volume 79.8 fl (80-100); Mean Platelet Volume 10.1 fl (7.4-10.4); Monocytes Absolute Auto 1.2 K/mm3 (0.1-0.6); Neutrophils Absolute Auto 11.9 K/mm3 (1.3-6.7); Neutrophils Percent Auto 82.6 % (45.5-73.1); Platelet Count Result 308 k/mm3 (150-375); Red Blood Count 4.36 M/mm3 (4.6-6.20); Red Cell Distribution Width 16.6 % (11.5-14.5); White Blood Count 14.4 K/mm3 (4.5-10.0)
[2023-06-11 05:16] LABS: Alanine Aminotransferase 12 U/L (6-50); Albumin Level 3.3 g/dL (3.5-5.1); Alkaline Phosphatase 65 U/L (38-126); Anion Gap 8 mmol/L (8-16); Aspartate Amino Transferase 25 U/L (17-59); Bilirubin,Total 0.4 mg/dL (0.2-1.3); Blood Urea Nitrogen 20 mg/dL (9-20); Carbon Dioxide 24 mmol/L (22-30); Chloride 107 mmol/L (98-107); Estimated CRCL calculation 33 ml/min; Estimated Glomerular Filt Rate 53; Glucose 105 mg/dL (65-110); Potassium 3.3 mmol/L (3.4-5.0); Sodium 139 mmol/L (137-145)
[2023-06-11 05:22] LABS: Partial Thromboplastin Time 70.1 SECONDS (22.3-36.8)
[2023-06-11] MEDS: HEPARIN SODIUM 5,000 UNITS/ML VIAL 2500 UNITS IV PUSH (05:42)
[2023-06-11] MEDS: DEXAMETHASONE 2 MG TABLET 6 MG PO (10:24)
[2023-06-11] MEDS: amLODIPine BESYLATE 5 MG TABLET PO (10:25)
[2023-06-11] MEDS: CALCIUM CARBONATE (TUMS) 500 MG (200 MG ELEMENTAL) PO (10:25)
[2023-06-11] MEDS: POTASSIUM CHLORIDE 20 MEQ ER TABLET 40 MEQ PO (10:25)
[2023-06-11] MEDS: CHOLECALCIFEROL 1,000 UNITS TABLET 2000 UNITS PO (10:25)
[2023-06-11] MEDS: METOPROLOL SUCCINATE EXT REL 25 MG TABCR PO (10:26)
[2023-06-11] MEDS: LEFLUNOMIDE 20 MG TABLET PO (10:26)
[2023-06-11] MEDS: lisinopriL 20 MG TABLET PO (10:26)
[2023-06-11] MEDS: CLOPIDOGREL BISULFATE 75 MG TABLET PO (10:26)
[2023-06-11 12:03] LABS: INR 1.2; Partial Thromboplastin Time 53.1 SECONDS (22.3-36.8)
--- NOTE | 2023-06-11 12:16 | PM.IMPN ---
Progress Note: A&P Assessment and Plan (1) Acute non-ST elevation myocardial infarction (NSTEMI): Code(s): I21.4 - Non-ST elevation (NSTEMI) myocardial infarction Status: Acute (2) COVID: Code(s): U07.1 - COVID-19 Status: Acute (3) Community acquired pneumonia of left lower lobe of lung: Code(s): J18.9 - Pneumonia, unspecified organism Status: Acute (4) HTN (hypertension) with goal to be determined: Code(s): I10 - Essential (primary) hypertension Status: Acute (5) CAD (coronary artery disease): Qualifiers: Coronary Disease-Associated Artery/Lesion type: unspecified vessel or lesion type [place] vs. transplanted heart: [place] heart Associated angina: without angina Qualified Code(s): I25.10 - Atherosclerotic heart disease of [place] coronary artery without angina pectoris Code(s): I25.10 - Atherosclerotic heart disease of [place] coronary artery without angina pectoris Status: Acute Plan 83-year-old presented with cough and shortness of breath since past few days along with chest pain that started last evening. Chest pain mid chest retrosternal nonradiating pressure-like sensation relieved with nitroglycerin x2 with further recurrence and came to the ER for evaluation. He was febrile in the try as 100.7. Tested positive for COVID. He does have history of coronary artery disease with placement of stents 20 years ago. He has underlying history of rheumatoid arthritis and takes leflunomide and tofacitinib. ED evaluation with EKG with ST depressions noted in anteroseptal leads. Elevated troponin at 0.186 -0.194-0.198. Diagnosed with non ST elevation [place] and started on heparin drip. Aspirin 325 mg given. He reports no further chest pain. Chest x-ray with left lower lobe airspace disease which may represent consolidation or pneumonia in the appropriate context. Leukocytosis at 12 K. he has been started on antibiotics ceftriaxone and azithromycin for pneumonia along with remdesivir and dexamethasone for COVID infection. He is on Eliquis at home which is on hold while on heparin drip and continues on Plavix will add aspirin 81 mg daily cardiology has been consulted and await his recommendations. On beta-curtis. Allergic to statin History of coronary artery disease with stents x8 Carotid stenosis status post carotid endarterectomy Hypertension Hyperlipidemia Rheumatoid arthritis Subjective Date/time seen: 06/11/23 12:16 Interval history: 83-year-old presented with cough and shortness of breath since past few days along with chest pain that started last evening. Chest pain mid chest retrosternal nonradiating pressure-like sensation relieved with nitroglycerin x2 with further recurrence and came to the ER for evaluation. He was febrile in the try as 100.7. Tested positive for COVID. He does have history of coronary artery disease with placement of stents 20 years ago. He has underlying history of rheumatoid arthritis and takes leflunomide and tofacitinib. ED evaluation with EKG with ST depressions noted in anteroseptal leads. Elevated troponin at 0.186 -0.194-0.198. Diagnosed with non ST elevation [place] and started on heparin drip. Aspirin 325 mg given. He reports no further chest pain. Chest x-ray with left lower lobe airspace disease which may represent consolidation or pneumonia in the appropriate context. Leukocytosis at 12 K. he has been started on antibiotics ceftriaxone and azithromycin for pneumonia along with remdesivir and dexamethasone for COVID infection. He is on Eliquis at home which is on hold while on heparin drip and continues on Plavix will add aspirin 81 mg daily cardiology has been consulted and await his recommendations. On beta-curtis. Allergic to statin Review of Systems Review of Systems: All systems reviewed & are unremarkable except as noted in HPI and below Exam Narrative: GENERAL: Generally well appearing, alert and oriented
[2023-06-11] MEDS: HEPARIN SODIUM 5,000 UNITS/ML VIAL 4000 UNITS IV PUSH (12:56)
--- NOTE | 2023-06-11 13:11 | PM.CNCAR ---
Assessment and Plan Assessment and plan (1) Chest pain: Code(s): R07.9 - Chest pain, unspecified Status: Inactive Assessment and Plan: Post-tussive. Probably due to covid and pneumonia related. (2) Community acquired pneumonia of left lower lobe of lung: Code(s): J18.9 - Pneumonia, unspecified organism Status: Acute Assessment and Plan: On antibiotics as per hospitalist. (3) COVID: Code(s): U07.1 - COVID-19 Status: Acute Assessment and Plan: Treatment as per hospitalist. (4) PAF (paroxysmal atrial fibrillation): Code(s): I48.0 - Paroxysmal atrial fibrillation Status: Acute Assessment and Plan: In Sinus rhythm. On Metoprolol. [id number] 6. On Eliquis, but held due to possible ACS. On Heparin drip for now. (5) CAD (coronary artery disease), autologous vein bypass graft: Code(s): I25.810 - Atherosclerosis of coronary artery bypass graft(s) without angina pectoris Status: Acute Assessment and Plan: Stable. (6) HTN (hypertension) with goal to be determined: Code(s): I10 - Essential (primary) hypertension Status: Acute Assessment and Plan: Stable. (7) Elevated troponin: Code(s): R77.8 - Other specified abnormalities of plasma proteins Status: Acute Assessment and Plan: Up to 0.198. Probably due to covid, pneumonia. Patient expressed he does not want any invasive workup. Trend troponin to peak. Obtain echo in AM. History of Present Illness History of Present Illness Consult date/time: 06/11/23 13:11 Reason For Visit: nstemi,l lower lobe pna,covid Narrative: Jose Maria Baker is a 83 year old man who I saw one time during hospitalization on 12/09/19. He sees a privacy specialist at [place]. He has a history of CAD with CABG in 1999 at [facility] (patient believes he had a cardiac cath then was sent for open heart surgery to have 8 stents placed which does not happen normally), PAF in November 2019, dyslipidemia, hypertension, stroke, RA. Reports in last couple of days having constant coughing and occasional sputum production with it. The he noted chest discomfort with coughing. Denies any chest pain at this moment.? He can walk to his mailbox or a couple of blocks without any problems depending on the day and limited first be pain in his feet.? Denies sob, orthopnea, edema, palpitations. Review of Systems Review of Systems: All systems reviewed & are unremarkable except as noted in HPI and below Cardiovascular: Cardiovascular: Reports as per HPI, Reports chest pain, Denies irregular heart rhythm, Denies leg edema and Denies lightheadedness Respiratory: Respiratory: Reports as per HPI and Reports dyspnea Gastrointestinal: Gastrointestinal: Reports as per HPI and Denies abdominal pain Genitourinary: Genitourinary: Reports as per HPI and Denies dysuria Musculoskeletal: Musculoskeletal: Reports as per HPI and Reports arthralgias Neurologic: Reports as per HPI, Denies dizziness and Denies syncope [facility] Past Medical History Medical History (Updated 06/11/23 @ 13:19 by Brandon Fraser DO) CAD (coronary artery disease) Carotid stenosis Dry skin High cholesterol History of stroke Hypertension Inflammatory and immune myopathies Osteoarthritis Rheumatoid arthritis Vitamin D deficiency Surgical History Surgical History Hx of CABG pt and daughter said he had a [place] during angiogram and had sternotomy and had 8 stents Family History Family History Father Acute myocardial infarction Hypertension Mother Acute myocardial infarction Social History Social History Social History: Patient has not smoked or drink alcohol since 1999. 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 He designates his daughter Yoko as his surrogate decision maker. He would like t
[2023-06-11] MEDS: AZITHROMYCIN 500 MG/NS 250 ML 500 MG/250 ML BAG 250 MG IVPB (17:45)
[2023-06-11] MEDS: HEPARIN SOD/D5W 100 UNITS/ML 25,000 UNITS/250 ML BAG 12 UNITS IV CONT (20:25)
[2023-06-11] MEDS: cefTRIAXone 2 GM/NS 100 ML 2 GM/100 ML BAG IVPB (22:06)
[2023-06-11] MEDS: REMDESIVIR 100 MG/NS 250 ML 100 MG/250 ML BAG 250 MG IVPB (22:59)
[2023-06-12] VITALS (16 sets, daily range): BP systolic 117–189; BP diastolic 47–86; PULSE 60–75; RESP 14–18; TEMP 35.6–36.5; O2SAT 96–100
[2023-06-12 02:01] LABS: Partial Thromboplastin Time 159.3 SECONDS (22.3-36.8)
[2023-06-12 05:10] LABS: Basophils Percent Auto 0.2 % (0.2-1.2); Hematocrit 34.3 % (42.0-52.0); Hemoglobin 10.7 g/dL (14.0-18.0); Immature Granulocyte Absolute 0.09 K/mm3 (0.00-0.031); Immature Granulocyte Percent A 0.7 % (0-0.5); Lymphocytes Absolute Auto 0.91 K/mm3 (0.9-3.2); Lymphocytes Percent Auto 6.8 % (18.3-44.2); Mean Corpuscular HGB Conc 31.2 g/dl (32-36); Mean Corpuscular Hemoglobin 25.2 pg (26-34); Mean Corpuscular Volume 80.7 fl (80-100); Mean Platelet Volume 10.4 fl (7.4-10.4); Monocytes Absolute Auto 0.4 K/mm3 (0.1-0.6); Monocytes Percent Auto 3.2 % (2.6-8.5); Neutrophils Percent Auto 89.1 % (45.5-73.1); Platelet Count Result 337 k/mm3 (150-375); Red Blood Count 4.25 M/mm3 (4.6-6.20); Red Cell Distribution Width 16.9 % (11.5-14.5); White Blood Count 13.4 K/mm3 (4.5-10.0)
[2023-06-12 05:21] LABS: Alanine Aminotransferase 12 U/L (6-50); Albumin Level 3.3 g/dL (3.5-5.1); Alkaline Phosphatase 62 U/L (38-126); Anion Gap 8 mmol/L (8-16); Aspartate Amino Transferase 24 U/L (17-59); Bilirubin,Total 0.4 mg/dL (0.2-1.3); Blood Urea Nitrogen 27 mg/dL (9-20); Carbon Dioxide 23 mmol/L (22-30); Chloride 108 mmol/L (98-107); Estimated CRCL calculation 36 ml/min; Estimated Glomerular Filt Rate 58; Glucose 135 mg/dL (65-110); Magnesium 2.2 mg/dL (1.6-2.3); Potassium 4.1 mmol/L (3.4-5.0); Sodium 139 mmol/L (137-145)
[2023-06-12 05:25] LABS: INR 1.2; Prothrombin Time 15.8 Seconds (11.1-14.7)
[2023-06-12 05:43] LABS: Troponin I 0.079 ng/mL (0.000-0.034)
[2023-06-12] MEDS: NITROGLYCERIN SL 0.4 MG TABLET SUBLINGUAL (07:06)
--- NOTE | 2023-06-12 07:41 | PM.PNCARD ---
Progress Note: A&P Assessment and Plan (1) Chest pain: Code(s): R07.9 - Chest pain, unspecified Status: Inactive Assessment and Plan: Post-tussive. Probably due to covid and pneumonia related. (2) Community acquired pneumonia of left lower lobe of lung: Code(s): J18.9 - Pneumonia, unspecified organism Status: Acute Assessment and Plan: On antibiotics as per hospitalist. (3) COVID: Code(s): U07.1 - COVID-19 Status: Acute Assessment and Plan: Treatment as per hospitalist. (4) PAF (paroxysmal atrial fibrillation): Code(s): I48.0 - Paroxysmal atrial fibrillation Status: Acute Assessment and Plan: In Sinus rhythm. On Metoprolol. [id number] 6. On Eliquis, but held due to possible ACS. On Heparin drip for now. (5) CAD (coronary artery disease), autologous vein bypass graft: Code(s): I25.810 - Atherosclerosis of coronary artery bypass graft(s) without angina pectoris Status: Acute Assessment and Plan: Stable. (6) HTN (hypertension) with goal to be determined: Code(s): I10 - Essential (primary) hypertension Status: Acute Assessment and Plan: Stable. (7) Elevated troponin: Code(s): R77.8 - Other specified abnormalities of plasma proteins Status: Acute Assessment and Plan: Peaked at 0.198. Probably due to covid, pneumonia. Patient expressed he does not want any invasive workup. Obtain echo today. Subjective Date/time seen: 06/12/23 07:41 Interval history: Had chest pain this morning after a cough, and resolved with NTG SL. No sob. Exam Const: General: cooperative, healthy appearing and comfortable Orientation/consciousness: oriented to person, oriented to place and oriented to time Resp: Auscultation: clear to auscultation bilaterally, no crackles, no rales, no rhonchi and no wheezes Cardio: Rate: regular rate Rhythm: regular rhythm Heart sounds: no murmurs Peripheral pulses: dorsalis pedis present Neuro: General: oriented to person, oriented to place and oriented to time Extrem: Right lower extremity: no edema Left lower extremity: no edema Objective Data Vital Signs Vital Signs: Vital Signs - 24 hr 06/11/23 07:47 06/11/23 10:26 06/11/23 11:34 Temperature 97.6 F 97.6 F Pulse Rate 81 73 70 Respiratory Rate 13 18 Blood Pressure 125/51 L 125/72 Pulse Oximetry 94 97 06/11/23 15:57 06/11/23 19:37 06/11/23 08:00 Temperature 97.3 F L 98.1 F Pulse Rate 77 70 76 Respiratory Rate 20 16 Blood Pressure 116/51 L 106/51 L Pulse Oximetry 98 98 06/11/23 10:00 06/11/23 12:00 06/11/23 14:00 Temperature Pulse Rate 78 69 74 Respiratory Rate Blood Pressure Pulse Oximetry 06/11/23 16:00 06/11/23 18:00 06/11/23 23:25 Temperature 97.6 F Pulse Rate 79 77 66 Respiratory Rate 18 Blood Pressure 105/58 L Pulse Oximetry 99 06/11/23 20:00 06/11/23 22:00 06/12/23 00:00 Temperature Pulse Rate 70 74 63 Respiratory Rate Blood Pressure Pulse Oximetry 06/12/23 02:00 06/12/23 03:39 06/12/23 04:00 Temperature 97.6 F Pulse Rate 60 68 62 Respiratory Rate 18 Blood Pressure 121/59 L Pulse Oximetry 98 06/12/23 06:00 06/12/23 07:05 Temperature Pulse Rate 62 Respiratory Rate Blood Pressure 189/81 H Pulse Oximetry 97 Intake/Output Intake/Output: Intake & Output 06/09/23 06/10/23 06/11/23 06/12/23 23:59 23:59 23:59 23:59 Intake Total 650 1450 200 Output Total 100 400 900 Balance 550 1050 -700 Meds/Results Medications: Active Medications Generic Name Dose Route Start Last Admin Trade Name Freq PRN Reason Stop Dose Admin Aspirin 81 mg 06/12/23 09:00 Aspirin 81 Mg Enteric Tablet PO QAM TIM Calcium Carbonate 500 mg 06/11/23 09:00 06/11/23 10:25 Calcium Carbonate (Tums) 500 Mg (200 Mg Elemental) PO 500 mg DAILY TIM Administration Clopidogrel Bisulfate 75 mg 09
[2023-06-12 09:44] LABS: Partial Thromboplastin Time 63.4 SECONDS (22.3-36.8)
[2023-06-12] MEDS: ASPIRIN 81 MG ENTERIC TABLET PO (10:26)
[2023-06-12] MEDS: METOPROLOL SUCCINATE EXT REL 25 MG TABCR PO (10:26)
[2023-06-12] MEDS: lisinopriL 20 MG TABLET PO (10:26)
[2023-06-12] MEDS: CLOPIDOGREL BISULFATE 75 MG TABLET PO (10:26)
[2023-06-12] MEDS: LEFLUNOMIDE 20 MG TABLET PO (10:27)
[2023-06-12] MEDS: CHOLECALCIFEROL 1,000 UNITS TABLET 2000 UNITS PO (10:27)
[2023-06-12] MEDS: DEXAMETHASONE 2 MG TABLET 6 MG PO (10:27)
[2023-06-12] MEDS: HEPARIN SODIUM 5,000 UNITS/ML VIAL 2500 UNITS IV PUSH (10:28)
[2023-06-12 16:37] LABS: Partial Thromboplastin Time 79.8 SECONDS (22.3-36.8)
[2023-06-12] MEDS: HEPARIN SOD/D5W 100 UNITS/ML 25,000 UNITS/250 ML BAG 11 UNITS IV CONT (17:23)
[2023-06-12] MEDS: AZITHROMYCIN 500 MG/NS 250 ML 500 MG/250 ML BAG 250 MG IVPB (17:23)
--- NOTE | 2023-06-12 17:28 | PM.IMPN ---
Progress Note: A&P Assessment and Plan (1) Acute non-ST elevation myocardial infarction (NSTEMI): Code(s): I21.4 - Non-ST elevation (NSTEMI) myocardial infarction Status: Acute (2) COVID: Code(s): U07.1 - COVID-19 Status: Acute (3) Community acquired pneumonia of left lower lobe of lung: Code(s): J18.9 - Pneumonia, unspecified organism Status: Acute (4) HTN (hypertension) with goal to be determined: Code(s): I10 - Essential (primary) hypertension Status: Acute (5) CAD (coronary artery disease): Qualifiers: Coronary Disease-Associated Artery/Lesion type: unspecified vessel or lesion type [place] vs. transplanted heart: [place] heart Associated angina: without angina Qualified Code(s): I25.10 - Atherosclerotic heart disease of [place] coronary artery without angina pectoris Code(s): I25.10 - Atherosclerotic heart disease of [place] coronary artery without angina pectoris Status: Acute Plan 83-year-old presented with cough and shortness of breath since past few days along with chest pain that started last evening. Chest pain mid chest retrosternal nonradiating pressure-like sensation relieved with nitroglycerin x2 with further recurrence and came to the ER for evaluation. He was febrile in the try as 100.7. Tested positive for COVID. He does have history of coronary artery disease with placement of stents 20 years ago. He has underlying history of rheumatoid arthritis and takes leflunomide and tofacitinib. ED evaluation with EKG with ST depressions noted in anteroseptal leads. Elevated troponin at 0.186 -0.194-0.198. Diagnosed with non ST elevation [place] and started on heparin drip. Aspirin 325 mg given. He reports no further chest pain. Chest x-ray with left lower lobe airspace disease which may represent consolidation or pneumonia in the appropriate context. Leukocytosis at 12 K. he has been started on antibiotics ceftriaxone and azithromycin for pneumonia along with remdesivir and dexamethasone for COVID infection. He is on Eliquis at home which is on hold while on heparin drip and continues on Plavix will add aspirin 81 mg daily cardiology has been consulted and echo planned. On beta-curtis. Allergic to statin History of coronary artery disease with stents x8 Carotid stenosis status post carotid endarterectomy Hypertension Hyperlipidemia Rheumatoid arthritis Subjective Date/time seen: 06/12/23 17:28 Interval history: He had some chest pain in the morning after some cough. Resolved with nitroglycerin. Currently no chest pain reported. Breathing is okay. Review of Systems Review of Systems: All systems reviewed & are unremarkable except as noted in HPI and below Exam Narrative: GENERAL: Generally well appearing, alert and oriented, in no apparent distress. He is pleasant and conversant in full sentences. HEENT: Pupils are equally round and briskly reactive to light. Extraocular muscles are intact. Oral mucous membranes are moist without lesions. NECK: The patient has no noted JVD. No adenopathy is appreciated. CHEST/LUNGS: Lungs are diminished with crackles. There is no subcutaneous air appreciated. There is no tenderness to the chest wall. HEART: The patient has a regular rate and rhythm. No murmurs, rubs, or gallops are appreciated. Distal pulses are 2+. ABDOMEN: The patient's abdomen is soft, nontender, and nondistended. Bowel sounds are positive. No organomegaly is appreciated. No masses are appreciated. There are no peritoneal signs. There is no Benavides's sign. EXTREMITIES: The patient has no peripheral edema. There is no focal long bone tenderness or deformity. SKIN: The patient's skin is warm and dry, without rashes or lesions. PSYCHIATRIC: The patient has normal mental status and has an appropriate affect. NEUROLOGIC: There are no gross deficits to the cranial nerves. patient moves all extremities well 5/5 strength Objective Data Vital
[2023-06-12] MEDS: cefTRIAXone 2 GM/NS 100 ML 2 GM/100 ML BAG IVPB (20:34)
[2023-06-12] MEDS: REMDESIVIR 100 MG/NS 250 ML 100 MG/250 ML BAG 250 MG IVPB (21:34)
[2023-06-12 23:26] LABS: Partial Thromboplastin Time > 200.0 SECONDS (22.3-36.8)
[2023-06-13] VITALS (14 sets, daily range): BP systolic 112–138; BP diastolic 48–55; PULSE 57–76; RESP 14–18; TEMP 36–36.6; O2SAT 97–100
--- NOTE | 2023-06-13 | ECHO_ITS ---
Patient Info Name: Jose Maria Baker Age: 83 years : 1940 Gender: Male Ht: 70 in Wt: 145 lbs BSA: 1.80 m2 HR: 59 bpm BP: 138 / 48 mmHg Heart Rhythm: Sinus Rhythm Technical Quality: Fair Exam Date: 06/13/2023 9:09 AM Exam Location: [facility] Pulmonary Patient Status: Inpatient Admit Date: 06/10/2023 Staff Ordering Physician: Brandon Fraser DO Electrotyper Apprentice: Juan F Aguirre RDCS Attending Provider: Alexia Hampton DO Referring Physician: Evelio HURTADO; Exam Type: CA echo dop color flow w con Study Info Indications - CHEST PAIN Complete two-dimensional, color flow and Doppler transthoracic echocardiogram is performed with contrast to opacify the left ventricle and to improve the deliniation of the left ventricle endocardial borders. Contrast/Agitated Saline Contrast/Ag. Saline: Definity Amount: 3.00 ml Summary 1. Definity contrast administered improved wall motion interpretation. 2. Left ventricular chamber dimension is normal. 3. Left ventricular systolic function is normal, estimated at 55-60%. 4. There is mild concentric increased left ventricular wall thickness. 5. The left ventricular diastolic function is grade I diastolic dysfunction. 6. The aortic valve is not well visualized. Cannot determine number of aortic valve leaflets. 7. There is mild aortic valve stenosis based on a peak velocity of 251.72 cm/s, mean gradient of 15 mmHg, and aortic valve area of 1.59 cm2. 8. There is moderate aortic valve sclerosis. 9. There is trace aortic valve regurgitation. 10. The mitral valve has moderately calcified annulus. 11. There is trace tricuspid valve regurgitation. 12. No pulmonary hypertension, estimated pulmonary arterial systolic pressure is 34 mmHg. Left Ventricle Definity contrast administered improved wall motion interpretation. Tissue doppler E/e' is not performed. Left ventricular chamber dimension is normal. Left ventricular systolic function is normal, estimated at 55-60%. There is mild concentric increased left ventricular wall thickness. The left ventricular diastolic function is grade I diastolic dysfunction. Right Ventricle Right ventricular chamber dimension is normal. Right ventricular systolic function is normal. Left Atria Left atrial chamber dimension is normal. Right Atria Right atrial chamber dimension is normal. Aortic Valve The aortic valve is not well visualized. Cannot determine number of aortic valve leaflets. There is mild aortic valve stenosis based on a peak velocity of 251.72 cm/s, mean gradient of 15 mmHg, and aortic valve area of 1.59 cm2. There is moderate aortic valve sclerosis. There is trace aortic valve regurgitation. Pulmonic Valve There is no pulmonic regurgitation. Mitral Valve The mitral valve has moderately calcified annulus. There is no mitral valve stenosis. There is no mitral valve regurgitation. Tricuspid Valve There is trace tricuspid valve regurgitation. No pulmonary hypertension, estimated pulmonary arterial systolic pressure is 34 mmHg. Pericardium/Pleural There is no pericardial effusion. Inferior Vena Cava Normal inferior vena cava with >50% collapse upon inspiration consistent with normal right atrial pressure, 5 mmHg. Aorta The aortic root size at the sinus of Valsalva is normal. Left Ventricular Outflow Tract Name Value Normal LVOT 2D
[2023-06-13 05:35] LABS: Basophils Percent Auto 0.2 % (0.2-1.2); Hemoglobin 9.9 g/dL (14.0-18.0); Immature Granulocyte Absolute 0.72 K/mm3 (0.00-0.031); Immature Granulocyte Percent A 3.2 % (0-0.5); Lymphocytes Absolute Auto 1.24 K/mm3 (0.9-3.2); Lymphocytes Percent Auto 5.5 % (18.3-44.2); Mean Corpuscular HGB Conc 31.9 g/dl (32-36); Mean Corpuscular Hemoglobin 25.4 pg (26-34); Mean Corpuscular Volume 79.5 fl (80-100); Monocytes Absolute Auto 0.8 K/mm3 (0.1-0.6); Monocytes Percent Auto 3.7 % (2.6-8.5); Neutrophils Absolute Auto 19.7 K/mm3 (1.3-6.7); Neutrophils Percent Auto 87.4 % (45.5-73.1); Platelet Count Result 340 k/mm3 (150-375); Red Cell Distribution Width 17.2 % (11.5-14.5); White Blood Count 22.5 K/mm3 (4.5-10.0)
[2023-06-13 05:45] LABS: INR 1.3; Prothrombin Time 17.1 Seconds (11.1-14.7)
[2023-06-13 05:47] LABS: Partial Thromboplastin Time 71.5 SECONDS (22.3-36.8)
[2023-06-13 05:54] LABS: Alanine Aminotransferase 13 U/L (6-50); Albumin Level 2.9 g/dL (3.5-5.1); Alkaline Phosphatase 55 U/L (38-126); Anion Gap 5 mmol/L (8-16); Aspartate Amino Transferase 32 U/L (17-59); Bilirubin,Total 0.3 mg/dL (0.2-1.3); Blood Urea Nitrogen 33 mg/dL (9-20); Calcium 7.6 mg/dL (8.4-10.2); Carbon Dioxide 26 mmol/L (22-30); Chloride 108 mmol/L (98-107); Estimated CRCL calculation 36 ml/min; Estimated Glomerular Filt Rate 58; Glucose 122 mg/dL (65-110); Magnesium 2.1 mg/dL (1.6-2.3); Potassium 4.5 mmol/L (3.4-5.0); Sodium 139 mmol/L (137-145)
[2023-06-13 06:07] LABS: Anisocytosis 1+ (NORMAL); Platelet Estimate Adequate (Adequate); Schistocytes None Seen (NORMAL)
--- NOTE | 2023-06-13 07:54 | PM.PNCARD ---
Progress Note: A&P Assessment and Plan (1) Chest pain: Code(s): R07.9 - Chest pain, unspecified Status: Inactive Assessment and Plan: Post-tussive. Probably due to covid and pneumonia related. (2) Community acquired pneumonia of left lower lobe of lung: Code(s): J18.9 - Pneumonia, unspecified organism Status: Acute Assessment and Plan: On antibiotics as per hospitalist. (3) COVID: Code(s): U07.1 - COVID-19 Status: Acute Assessment and Plan: Treatment as per hospitalist. (4) PAF (paroxysmal atrial fibrillation): Code(s): I48.0 - Paroxysmal atrial fibrillation Status: Acute Assessment and Plan: In Sinus rhythm. On Metoprolol. [id number] 6. On Eliquis which was on hold for possible ACS while on heparin drip. Stop heparin drip and aspirin. Resume Eliquis 5 mg BID. (5) CAD (coronary artery disease), autologous vein bypass graft: Code(s): I25.810 - Atherosclerosis of coronary artery bypass graft(s) without angina pectoris Status: Acute Assessment and Plan: Stable. On Clopidogrel. (6) HTN (hypertension) with goal to be determined: Code(s): I10 - Essential (primary) hypertension Status: Acute Assessment and Plan: Stable. (7) Elevated troponin: Code(s): R77.8 - Other specified abnormalities of plasma proteins Status: Acute Assessment and Plan: Peaked at 0.198. Probably due to covid, pneumonia. Patient expressed he does not want any invasive workup. Obtain echo today. Subjective Date/time seen: 06/13/23 07:54 Interval history: Denies any chest pain today. No sob. Exam Const: General: cooperative, healthy appearing and comfortable Orientation/consciousness: oriented to person, oriented to place and oriented to time Resp: Auscultation: clear to auscultation bilaterally, no crackles, no rales, no rhonchi and no wheezes Cardio: Rate: regular rate Rhythm: regular rhythm Heart sounds: no murmurs Peripheral pulses: dorsalis pedis present Neuro: General: oriented to person, oriented to place and oriented to time Extrem: Right lower extremity: no edema Left lower extremity: no edema Objective Data Vital Signs Vital Signs: Vital Signs - 24 hr 06/12/23 08:00 06/12/23 10:26 06/12/23 11:48 Temperature 96.8 F L 96.9 F L Pulse Rate 74 70 73 Respiratory Rate 18 18 Blood Pressure 117/47 L 123/56 L Pulse Oximetry 96 99 Oxygen Delivery 06/12/23 08:00 06/12/23 16:00 06/12/23 20:00 Temperature 97.7 F 97.0 F L Pulse Rate 71 75 75 Respiratory Rate 18 18 Blood Pressure 160/53 H 131/86 Pulse Oximetry 100 100 Oxygen Delivery 06/12/23 10:00 06/12/23 14:00 06/12/23 16:00 Temperature Pulse Rate 75 67 69 Respiratory Rate Blood Pressure Pulse Oximetry Oxygen Delivery 06/12/23 18:00 06/12/23 20:00 06/12/23 23:29 Temperature 96.1 F L Pulse Rate 73 75 61 Respiratory Rate 18 14 Blood Pressure 125/85 Pulse Oximetry 100 97 Oxygen Delivery Room Air 06/12/23 20:00 06/12/23 22:00 06/13/23 00:00 Temperature Pulse Rate 62 62 61 Respiratory Rate 14 Blood Pressure Pulse Oximetry 97 Oxygen Delivery Room Air 06/13/23 00:00 06/13/23 02:00 06/13/23 04:00 Temperature Pulse Rate 61 57 L 57 L Respiratory Rate 14 Blood Pressure Pulse Oximetry 97 Oxygen Delivery Room Air 06/13/23 04:00 06/13/23 04:00 06/13/23 06:00 Temperature 96.8 F L Pulse Rate 59 L 59 L 59 L Respiratory Rate 16 Blood Pressure 138/48 L Pulse Oximetry 98 Oxygen Delivery Intake/Output Intake/Output: Intake & Output 06/10/23 06/11/23 06/12/23 06/13/23 23:59 23:59 23:59 23:59 Intake Total 650 1450 1850 350 Output Total 716 113 2001 700 Balance 550 1050 -650 -350 Meds/Results Medications: Active Medications Generic Name Dose Route Start Last Admin Trade Name Freq PRN Reason Stop Dose Admin Aspirin 81
[2023-06-13] MEDS: PERFLUTREN LIPID MICROSPHERES 1.5 ML VIAL DILUTED TO 10 ML TOTAL VOLUME IV PUSH (09:15)
[2023-06-13] MEDS: CLOPIDOGREL BISULFATE 75 MG TABLET PO (09:55)
[2023-06-13] MEDS: lisinopriL 20 MG TABLET PO (09:55)
[2023-06-13] MEDS: CHOLECALCIFEROL 1,000 UNITS TABLET 2000 UNITS PO (09:55)
[2023-06-13] MEDS: DEXAMETHASONE 2 MG TABLET 6 MG PO (09:55)
[2023-06-13] MEDS: ISOSORBIDE MONONITRATE 30 MG TAB.ER.24H PO (09:55)
[2023-06-13] MEDS: LEFLUNOMIDE 20 MG TABLET PO (09:55)
[2023-06-13] MEDS: APIXABAN 5 MG TABLET PO ×2 (09:55→20:35)
[2023-06-13] MEDS: METOPROLOL SUCCINATE EXT REL 25 MG TABCR PO (09:56)
[2023-06-13 11:51] LABS: Partial Thromboplastin Time 40.5 SECONDS (22.3-36.8)
[2023-06-13] MEDS: AZITHROMYCIN 250 MG TABLET 500 MG PO (16:58)
--- NOTE | 2023-06-13 17:02 | PM.IMPN ---
Progress Note: A&P Assessment and Plan (1) Acute non-ST elevation myocardial infarction (NSTEMI): Code(s): I21.4 - Non-ST elevation (NSTEMI) myocardial infarction Status: Acute (2) COVID: Code(s): U07.1 - COVID-19 Status: Acute (3) Community acquired pneumonia of left lower lobe of lung: Code(s): J18.9 - Pneumonia, unspecified organism Status: Acute (4) HTN (hypertension) with goal to be determined: Code(s): I10 - Essential (primary) hypertension Status: Acute (5) CAD (coronary artery disease): Qualifiers: Coronary Disease-Associated Artery/Lesion type: unspecified vessel or lesion type [place] vs. transplanted heart: [place] heart Associated angina: without angina Qualified Code(s): I25.10 - Atherosclerotic heart disease of [place] coronary artery without angina pectoris Code(s): I25.10 - Atherosclerotic heart disease of [place] coronary artery without angina pectoris Status: Acute Plan 83-year-old presented with cough and shortness of breath since past few days along with chest pain that started last evening. Chest pain mid chest retrosternal nonradiating pressure-like sensation relieved with nitroglycerin x2 with further recurrence and came to the ER for evaluation. He was febrile in the ED as 100.7. Tested positive for COVID. He does have history of coronary artery disease with placement of stents 20 years ago. He has underlying history of rheumatoid arthritis and takes leflunomide and tofacitinib. ED evaluation with EKG with ST depressions noted in anteroseptal leads. Elevated troponin at 0.186 -0.194-0.198. Diagnosed with non ST elevation [place] and started on heparin drip. Aspirin 325 mg given. He reports no further chest pain. Chest x-ray with left lower lobe airspace disease which may represent consolidation or pneumonia in the appropriate context. Leukocytosis at 12 K. he has been started on antibiotics ceftriaxone and azithromycin for pneumonia along with remdesivir and dexamethasone for COVID infection. He is on Eliquis at home which is on hold while on heparin drip and continues on Plavix. Had aspirin 81 mg daily cardiology has been consulted and echo 06/13/2023 with EF 55-60% grade 1 diastolic dysfunction mild aortic valve stenosis trace TR no pulmonary hypertension. On beta-curtis. Allergic to statin. Heparin drip has been stopped and restarted back on Eliquis. He will finish his remdesivir tomorrow switch antibiotics to oral History of coronary artery disease with stents x8 Carotid stenosis status post carotid endarterectomy Hypertension Hyperlipidemia Rheumatoid arthritis Subjective Date/time seen: 06/13/23 17:02 Interval history: Feeling well. No further chest pain. Cough is improved. Off heparin drip now. Review of Systems Review of Systems: All systems reviewed & are unremarkable except as noted in HPI and below Exam Narrative: GENERAL: Generally well appearing, alert and oriented, in no apparent distress. He is pleasant and conversant in full sentences. HEENT: Pupils are equally round and briskly reactive to light. Extraocular muscles are intact. Oral mucous membranes are moist without lesions. NECK: The patient has no noted JVD. No adenopathy is appreciated. CHEST/LUNGS: Lungs are diminished with crackles. There is no subcutaneous air appreciated. There is no tenderness to the chest wall. HEART: The patient has a regular rate and rhythm. No murmurs, rubs, or gallops are appreciated. Distal pulses are 2+. ABDOMEN: The patient's abdomen is soft, nontender, and nondistended. Bowel sounds are positive. EXTREMITIES: The patient has no peripheral edema. There is no focal long bone tenderness or deformity. SKIN: The patient's skin is warm and dry, without rashes or lesions. PSYCHIATRIC: The patient has normal mental status and has an appropriate affect. NEUROLOGIC: There are no gross deficits to the cranial nerves. patient moves al
[2023-06-13] MEDS: REMDESIVIR 100 MG/NS 250 ML 100 MG/250 ML BAG 250 MG IVPB (20:34)
[2023-06-13] MEDS: CEFDINIR 300 MG CAPSULE PO (20:35)
[2023-06-14] VITALS (12 sets, daily range): BP systolic 123–132; BP diastolic 45–58; PULSE 55–75; RESP 16–21; TEMP 36.3–36.6; O2SAT 96–97
[2023-06-14 05:34] LABS: Basophils Percent Auto 0.2 % (0.2-1.2); Hematocrit 31.7 % (42.0-52.0); Immature Granulocyte Absolute 0.55 K/mm3 (0.00-0.031); Immature Granulocyte Percent A 2.5 % (0-0.5); Lymphocytes Percent Auto 5.4 % (18.3-44.2); Mean Corpuscular HGB Conc 31.5 g/dl (32-36); Mean Corpuscular Hemoglobin 24.9 pg (26-34); Mean Corpuscular Volume 78.9 fl (80-100); Mean Platelet Volume 10.2 fl (7.4-10.4); Monocytes Absolute Auto 0.6 K/mm3 (0.1-0.6); Monocytes Percent Auto 2.8 % (2.6-8.5); Neutrophils Absolute Auto 19.7 K/mm3 (1.3-6.7); Neutrophils Percent Auto 89.1 % (45.5-73.1); Platelet Count Result 368 k/mm3 (150-375); Red Blood Count 4.02 M/mm3 (4.6-6.20); Red Cell Distribution Width 17.2 % (11.5-14.5); White Blood Count 22.1 K/mm3 (4.5-10.0)
[2023-06-14 05:39] LABS: Alanine Aminotransferase 16 U/L (6-50); Albumin Level 2.9 g/dL (3.5-5.1); Alkaline Phosphatase 57 U/L (38-126); Anion Gap 6 mmol/L (8-16); Aspartate Amino Transferase 29 U/L (17-59); Bilirubin,Total 0.3 mg/dL (0.2-1.3); Blood Urea Nitrogen 38 mg/dL (9-20); Calcium 7.5 mg/dL (8.4-10.2); Carbon Dioxide 25 mmol/L (22-30); Chloride 107 mmol/L (98-107); Estimated CRCL calculation 33 ml/min; Estimated Glomerular Filt Rate 53; Glucose 108 mg/dL (65-110); Magnesium 2.2 mg/dL (1.6-2.3); Potassium 3.9 mmol/L (3.4-5.0); Sodium 138 mmol/L (137-145)
[2023-06-14 05:44] LABS: INR 1.5; Prothrombin Time 18.8 Seconds (11.1-14.7)
[2023-06-14 06:17] LABS: Anisocytosis 1+ (NORMAL); Burr Cells 1+ (NORMAL); Hypochromasia 1+ (NORMAL); Platelet Estimate Adequate (Adequate); Schistocytes None Seen (NORMAL)
--- NOTE | 2023-06-14 06:29 | ECG_ITS ---
Measurements Intervals [place] Rate: 63 P: 19 IN: 150 QRS: 21 QRSD: 91 T: 75 QT: 451 QTc: 463 Interpretive Statements SINUS RHYTHM VENTRICULAR PREMATURE COMPLEX NONSPECIFIC ST & T-WAVE ABNORMALITY- DIFFUSE LEADS BORDERLINE ECG COMPARED TO ECG 06/10/2023 15:45:41 NO SIGNIFICANT CHANGES Electronically Signed On 06-14-2023 11:10:46 CDT by Brandon Fraser D.O.
--- NOTE | 2023-06-14 07:48 | PM.PNCARD ---
Progress Note: A&P Assessment and Plan (1) Chest pain: Code(s): R07.9 - Chest pain, unspecified Status: Inactive Assessment and Plan: Post-tussive. Probably due to covid and pneumonia related. On Isosorbide mononitrate 30 mg daily. No further cardiac workup is needed. 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 (2) Community acquired pneumonia of left lower lobe of lung: Code(s): J18.9 - Pneumonia, unspecified organism Status: Acute Assessment and Plan: On antibiotics as per hospitalist. (3) COVID: Code(s): U07.1 - COVID-19 Status: Acute Assessment and Plan: Treatment as per hospitalist. (4) PAF (paroxysmal atrial fibrillation): Code(s): I48.0 - Paroxysmal atrial fibrillation Status: Acute Assessment and Plan: In Sinus rhythm. On Metoprolol. [id number] 6. On Eliquis which was on hold for possible ACS while on heparin drip. Stopped heparin drip and aspirin. Resumed Eliquis 5 mg BID. (5) CAD (coronary artery disease), autologous vein bypass graft: Code(s): I25.810 - Atherosclerosis of coronary artery bypass graft(s) without angina pectoris Status: Acute Assessment and Plan: Stable. On Clopidogrel. (6) HTN (hypertension) with goal to be determined: Code(s): I10 - Essential (primary) hypertension Status: Acute Assessment and Plan: Stable. (7) Elevated troponin: Code(s): R77.8 - Other specified abnormalities of plasma proteins Status: Acute Assessment and Plan: Peaked at 0.198. Probably due to covid, pneumonia. Patient expressed he does not want any invasive workup. 06/13/23 Echo: EF 55-60%, mild LVH, grade I diastolic dysfunction, mild based on valve area of 1.59 cm2, trace AI/TR, mod MAC. Subjective Date/time seen: 06/14/23 07:48 Interval history: Denies any chest pain today. No sob. Exam Const: General: cooperative, healthy appearing and comfortable Orientation/consciousness: oriented to person, oriented to place and oriented to time Resp: Auscultation: clear to auscultation bilaterally, no crackles, no rales, no rhonchi and no wheezes Cardio: Rate: regular rate Rhythm: regular rhythm Heart sounds: no murmurs Peripheral pulses: dorsalis pedis present Neuro: General: oriented to person, oriented to place and oriented to time Extrem: Right lower extremity: no edema Left lower extremity: no edema Objective Data Vital Signs Vital Signs: Vital Signs - 24 hr 06/13/23 08:00 06/13/23 09:56 06/13/23 08:00 Temperature 97.9 F Pulse Rate 71 68 76 Respiratory Rate 16 Blood Pressure 135/49 L Pulse Oximetry 100 Oxygen Delivery 06/13/23 10:00 06/13/23 12:00 06/13/23 12:00 Temperature 97 F L Pulse Rate 65 61 60 Respiratory Rate 18 Blood Pressure 112/55 L Pulse Oximetry 98 Oxygen Delivery 06/13/23 16:00 06/13/23 14:00 06/13/23 16:00 Temperature 97.3 F L Pulse Rate 63 62 62 Respiratory Rate 18 Blood Pressure 134/50 L Pulse Oximetry 99 Oxygen Delivery 06/13/23 18:00 06/13/23 20:00 06/13/23 23:59 Temperature 97.0 F L Pulse Rate 65 65 68 Respiratory Rate 18 16 Blood Pressure 124/48 L Pulse Oximetry 99 98 Oxygen Delivery Room Air 06/13/23 20:00 06/14/23 00:00 06/14/23 04:00 Temperature Pulse Rate 58 L 57 L 59 L Respiratory Rate Blood Pressure Pulse Oximetry Oxygen Delivery 06/14/23 06:00 06/13/23 22:00 06/14/23 02:00 Temperature Pulse Rate 55 L 74 61 Respiratory Rate Blood Pressure Pulse Oximetry Oxygen Delivery Intake/Output Intake/Output: Intake & Output 06/11/23 06/12/23 06/13/23 06/14/23 23:59 23:59 23:59 23:59 Intake Total 1450 2350 1470 350 Output Total 400 2500 1100 500 Balance 1050 -150 370 -150 Meds/Results Medications: Active Medications Generic Name Dose Route Start Last Admin Trade Name Freq PRN Reason S
[2023-06-14] MEDS: CLOPIDOGREL BISULFATE 75 MG TABLET PO (08:32)
[2023-06-14] MEDS: CHOLECALCIFEROL 1,000 UNITS TABLET 2000 UNITS PO (08:32)
[2023-06-14] MEDS: CALCIUM CARBONATE (TUMS) 500 MG (200 MG ELEMENTAL) PO (08:32)
[2023-06-14] MEDS: LEFLUNOMIDE 20 MG TABLET PO (08:33)
[2023-06-14] MEDS: CEFDINIR 300 MG CAPSULE PO ×2 (08:33→21:12)
[2023-06-14] MEDS: DEXAMETHASONE 2 MG TABLET 6 MG PO (08:33)
[2023-06-14] MEDS: lisinopriL 20 MG TABLET PO (08:33)
[2023-06-14] MEDS: ISOSORBIDE MONONITRATE 30 MG TAB.ER.24H PO (08:33)
[2023-06-14] MEDS: METOPROLOL SUCCINATE EXT REL 25 MG TABCR PO (08:33)
[2023-06-14] MEDS: APIXABAN 5 MG TABLET PO ×2 (08:33→21:12)
--- NOTE | 2023-06-14 09:33 | PM.IMPN ---
Progress Note: A&P Assessment and Plan (1) Acute non-ST elevation myocardial infarction (NSTEMI): Code(s): I21.4 - Non-ST elevation (NSTEMI) myocardial infarction Status: Acute (2) COVID: Code(s): U07.1 - COVID-19 Status: Acute (3) Community acquired pneumonia of left lower lobe of lung: Code(s): J18.9 - Pneumonia, unspecified organism Status: Acute (4) HTN (hypertension) with goal to be determined: Code(s): I10 - Essential (primary) hypertension Status: Acute (5) CAD (coronary artery disease): Qualifiers: Associated angina: without angina Coronary Disease-Associated Artery/Lesion type: unspecified vessel or lesion type [place] vs. transplanted heart: [place] heart Qualified Code(s): I25.10 - Atherosclerotic heart disease of [place] coronary artery without angina pectoris Code(s): I25.10 - Atherosclerotic heart disease of [place] coronary artery without angina pectoris Status: Acute Plan And STEMI 83-year-old presented with cough and shortness of breath since past few days along with chest pain that started last evening. Chest pain mid chest retrosternal nonradiating pressure-like sensation relieved with nitroglycerin x2 with further recurrence and came to the ER for evaluation. He does have history of coronary artery disease with placement of stents 20 years ago. He has underlying history of rheumatoid arthritis and takes leflunomide and tofacitinib. ED evaluation with EKG with ST depressions noted in anteroseptal leads. Elevated troponin at 0.186 -0.194-0.198. Diagnosed with non ST elevation [place] and started on heparin drip. Aspirin 325 mg given. He reports no further chest pain. Receives heparin Heparin drip has been stopped and restarted back on Eliquis. Had aspirin 81 mg daily cardiology has been consulted and echo 06/13/2023 with EF 55-60% grade 1 diastolic dysfunction mild aortic valve stenosis trace TR no pulmonary hypertension. On beta-curtis. Allergic to statin. COVID pneumonia superimposed with better pneumonia He was febrile in the ED as 100.7. Tested positive for COVID. Chest x-ray with left lower lobe airspace disease which may represent consolidation or pneumonia in the appropriate context. Leukocytosis at 12 K. he has been started on antibiotics ceftriaxone, cefepime and azithromycin for pneumonia along with remdesivir and dexamethasone for COVID infection. will finish remdesivir Leukocytosis persists high, patient is not on corticosteroid, changed to cefdinir June 13, add doxycycline p.o. Follow-up procalcitonin Persistent left lower lobe pneumonia on cxr He is on Eliquis at home which is on hold while on heparin drip and continues on Plavix. Carotid stenosis status post carotid endarterectomy Hypertension Hyperlipidemia Rheumatoid arthritis Subjective Date/time seen: 06/14/23 09:33 Interval history: Patient feels better today, patient is afebrile, blood pressure stable but he white blood cell is trending up Exam Narrative: GENERAL: Generally well appearing, alert and oriented, in no apparent distress. He is pleasant and conversant in full sentences. HEENT: Pupils are equally round and briskly reactive to light. Extraocular muscles are intact. Oral mucous membranes are moist without lesions. NECK: The patient has no noted JVD. No adenopathy is appreciated. CHEST/LUNGS: Lungs are diminished with crackles. There is no subcutaneous air appreciated. There is no tenderness to the chest wall. HEART: The patient has a regular rate and rhythm. No murmurs, rubs, or gallops are appreciated. Distal pulses are 2+. ABDOMEN: The patient's abdomen is soft, nontender, and nondistended. Bowel sounds are positive. EXTREMITIES: The patient has no peripheral edema. There is no focal long bone tenderness or deformity. SKIN: The patient's skin is warm and dry, without rashes or lesions. PSYCHIATRIC: The patient has normal mental status
[2023-06-14 10:15] LABS: Procalcitonin 0.2 ng/mL
[2023-06-14] MEDS: AZITHROMYCIN 250 MG TABLET 500 MG PO (16:15)
--- NOTE | 2023-06-14 17:40 | PC.NURSE ---
This patient, Jose Maria Baker, was received from [facility] on 06/14/23 at 1730. Patient/family oriented to unit policies and routines
--- NOTE | 2023-06-14 18:32 | PC.NURSE ---
This patient, Jose Maria Baker, was transferred to [facility] on 06/14/23 at 1720. Personal belongings sent with patient. Report given to Lorenzo. Appropriate documentation sent with patient.
[2023-06-14] MEDS: REMDESIVIR 100 MG/NS 250 ML 100 MG/250 ML BAG 250 MG IVPB (21:12)
[2023-06-14] MEDS: DOXYCYCLINE HYCLATE 100 MG TABLET PO (21:12)
[2023-06-15] VITALS (8 sets, daily range): BP systolic 126–133; BP diastolic 54–61; PULSE 50–68; RESP 16–18; TEMP 36.6–36.8; O2SAT 98–99
[2023-06-15 05:46] LABS: Basophils Absolute Auto 0.1 K/mm3 (0.0-0.1); Basophils Percent Auto 0.3 % (0.2-1.2); Hematocrit 32.1 % (42.0-52.0); Hemoglobin 10.3 g/dL (14.0-18.0); Immature Granulocyte Absolute 0.64 K/mm3 (0.00-0.031); Immature Granulocyte Percent A 3.1 % (0-0.5); Lymphocytes Absolute Auto 1.51 K/mm3 (0.9-3.2); Lymphocytes Percent Auto 7.3 % (18.3-44.2); Mean Corpuscular HGB Conc 32.1 g/dl (32-36); Mean Corpuscular Hemoglobin 25.2 pg (26-34); Mean Corpuscular Volume 78.5 fl (80-100); Mean Platelet Volume 10.2 fl (7.4-10.4); Monocytes Absolute Auto 0.7 K/mm3 (0.1-0.6); Monocytes Percent Auto 3.5 % (2.6-8.5); Neutrophils Absolute Auto 17.6 K/mm3 (1.3-6.7); Neutrophils Percent Auto 85.8 % (45.5-73.1); Platelet Count Result 364 k/mm3 (150-375); Red Blood Count 4.09 M/mm3 (4.6-6.20); Red Cell Distribution Width 17.2 % (11.5-14.5); White Blood Count 20.6 K/mm3 (4.5-10.0)
[2023-06-15 06:25] LABS: Procalcitonin 0.1 ng/mL
[2023-06-15 06:35] LABS: Alanine Aminotransferase 30 U/L (6-50); Albumin Level 2.7 g/dL (3.5-5.1); Alkaline Phosphatase 54 U/L (38-126); Anion Gap 6 mmol/L (8-16); Aspartate Amino Transferase 41 U/L (17-59); Bilirubin,Total 0.2 mg/dL (0.2-1.3); Blood Urea Nitrogen 42 mg/dL (9-20); Calcium 7.4 mg/dL (8.4-10.2); Carbon Dioxide 22 mmol/L (22-30); Chloride 107 mmol/L (98-107); Estimated CRCL calculation 33 ml/min; Estimated Glomerular Filt Rate 53; Glucose 114 mg/dL (65-110); Potassium 3.9 mmol/L (3.4-5.0); Sodium 135 mmol/L (137-145)
[2023-06-15] MEDS: CALCIUM CARBONATE (TUMS) 500 MG (200 MG ELEMENTAL) PO (09:04)
[2023-06-15] MEDS: CHOLECALCIFEROL 1,000 UNITS TABLET 2000 UNITS PO (09:05)
[2023-06-15] MEDS: DOXYCYCLINE HYCLATE 100 MG TABLET PO ×2 (09:05→20:23)
[2023-06-15] MEDS: METOPROLOL SUCCINATE EXT REL 25 MG TABCR PO (09:05)
[2023-06-15] MEDS: APIXABAN 5 MG TABLET PO ×2 (09:05→20:23)
[2023-06-15] MEDS: LEFLUNOMIDE 20 MG TABLET PO (09:05)
[2023-06-15] MEDS: lisinopriL 20 MG TABLET PO (09:05)
[2023-06-15] MEDS: CEFDINIR 300 MG CAPSULE PO ×2 (09:05→20:23)
[2023-06-15] MEDS: DEXAMETHASONE 2 MG TABLET 6 MG PO (09:05)
[2023-06-15] MEDS: ISOSORBIDE MONONITRATE 30 MG TAB.ER.24H PO (09:06)
[2023-06-15] MEDS: CLOPIDOGREL BISULFATE 75 MG TABLET PO (09:11)
--- NOTE | 2023-06-15 09:22 | PM.IMPN ---
Progress Note: A&P Assessment and Plan (1) Acute non-ST elevation myocardial infarction (NSTEMI): Code(s): I21.4 - Non-ST elevation (NSTEMI) myocardial infarction Status: Acute (2) COVID: Code(s): U07.1 - COVID-19 Status: Acute (3) Community acquired pneumonia of left lower lobe of lung: Code(s): J18.9 - Pneumonia, unspecified organism Status: Acute (4) HTN (hypertension) with goal to be determined: Code(s): I10 - Essential (primary) hypertension Status: Acute (5) CAD (coronary artery disease): Qualifiers: Associated angina: without angina Coronary Disease-Associated Artery/Lesion type: unspecified vessel or lesion type [place] vs. transplanted heart: [place] heart Qualified Code(s): I25.10 - Atherosclerotic heart disease of [place] coronary artery without angina pectoris Code(s): I25.10 - Atherosclerotic heart disease of [place] coronary artery without angina pectoris Status: Acute Plan And STEMI 83-year-old presented with cough and shortness of breath since past few days along with chest pain that started last evening. Chest pain mid chest retrosternal nonradiating pressure-like sensation relieved with nitroglycerin x2 with further recurrence and came to the ER for evaluation. He does have history of coronary artery disease with placement of stents 20 years ago. He has underlying history of rheumatoid arthritis and takes leflunomide and tofacitinib. ED evaluation with EKG with ST depressions noted in anteroseptal leads. Elevated troponin at 0.186 -0.194-0.198. Diagnosed with non ST elevation [place] and started on heparin drip. Aspirin 325 mg given. He reports no further chest pain. Receives heparin Heparin drip has been stopped and restarted back on Eliquis. Had aspirin 81 mg daily cardiology has been consulted and echo 06/13/2023 with EF 55-60% grade 1 diastolic dysfunction mild aortic valve stenosis trace TR no pulmonary hypertension. On beta-curtis. Allergic to statin. COVID pneumonia superimposed with better pneumonia He was febrile in the ED as 100.7. Tested positive for COVID. Chest x-ray with left lower lobe airspace disease which may represent consolidation or pneumonia in the appropriate context. Leukocytosis at 12 K. he has been started on antibiotics ceftriaxone, cefepime and azithromycin for pneumonia along with remdesivir and dexamethasone for COVID infection. finish remdesivir Leukocytosis persists high, patient is not on corticosteroid, changed to cefdinir June 13, add doxycycline p.o.06/14 Follow-up procalcitonin Persistent left lower lobe pneumonia on cxr wbd trends down c/w current abx dehydration, and hyponatremia Sodium 135, BUN 42 and creatinine 1.3, trending up Start normal saline IV 75 mL/hour Follow-up BMP He is on Eliquis at home which is on hold while on heparin drip and continues on Plavix. Carotid stenosis status post carotid endarterectomy Hypertension Hyperlipidemia Rheumatoid arthritis Subjective Date/time seen: 06/15/23 09:22 Interval history: Patient feels better today, patient is afebrile, blood pressure stable but he white blood cell is improving on antibiotics Exam Narrative: GENERAL: Generally well appearing, alert and oriented, in no apparent distress. He is pleasant and conversant in full sentences. HEENT: Pupils are equally round and briskly reactive to light. Extraocular muscles are intact. Oral mucous membranes are moist without lesions. NECK: The patient has no noted JVD. No adenopathy is appreciated. CHEST/LUNGS: Lungs are diminished with crackles. There is no subcutaneous air appreciated. There is no tenderness to the chest wall. HEART: The patient has a regular rate and rhythm. No murmurs, rubs, or gallops are appreciated. Distal pulses are 2+. ABDOMEN: The patient's abdomen is soft, nontender, and nondistended. Bowel sounds are positive. EXTREMITIES: The patient has no peripheral
[2023-06-15] MEDS: SODIUM CHLORIDE 0.9% IV 1,000 ML 75 ML IV CONT (12:51)
--- NOTE | 2023-06-15 15:22 | IVDEFINITY ---
Prior to administration of IV Definity the patient was educated on the risks and benefits of the imaging enhancing agent including potential adverse side effects. The patient verbalized understanding. Allergies were verified. No exclusion criteria were identified and at least one of the following inclusion criteria were met: 1) physician request, 2) patient technically difficult to image (per the [place] [employer] guidelines of two or more segments not discernable within the apical view), or 3) questionable left ventricular function. ?
[2023-06-16] VITALS (12 sets, daily range): BP systolic 130–158; BP diastolic 50–60; PULSE 54–63; RESP 14–20; TEMP 36.2–36.8; O2SAT 97–100
[2023-06-16] MEDS: SODIUM CHLORIDE 0.9% IV 1,000 ML 75 ML IV CONT (04:23)
[2023-06-16 05:41] LABS: Basophils Absolute Auto 0.1 K/mm3 (0.0-0.1); Basophils Percent Auto 0.4 % (0.2-1.2); Hematocrit 33.2 % (42.0-52.0); Hemoglobin 10.6 g/dL (14.0-18.0); Immature Granulocyte Absolute 1.15 K/mm3 (0.00-0.031); Immature Granulocyte Percent A 5.1 % (0-0.5); Lymphocytes Absolute Auto 1.81 K/mm3 (0.9-3.2); Mean Corpuscular HGB Conc 31.9 g/dl (32-36); Mean Corpuscular Hemoglobin 25.5 pg (26-34); Mean Corpuscular Volume 79.8 fl (80-100); Mean Platelet Volume 10.1 fl (7.4-10.4); Monocytes Absolute Auto 0.8 K/mm3 (0.1-0.6); Monocytes Percent Auto 3.4 % (2.6-8.5); Neutrophils Absolute Auto 18.7 K/mm3 (1.3-6.7); Neutrophils Percent Auto 83.1 % (45.5-73.1); Platelet Count Result 389 k/mm3 (150-375); Red Blood Count 4.16 M/mm3 (4.6-6.20); Red Cell Distribution Width 17.5 % (11.5-14.5); White Blood Count 22.5 K/mm3 (4.5-10.0)
[2023-06-16 05:50] LABS: Alanine Aminotransferase 33 U/L (6-50); Albumin Level 2.7 g/dL (3.5-5.1); Alkaline Phosphatase 50 U/L (38-126); Anion Gap 4 mmol/L (8-16); Aspartate Amino Transferase 40 U/L (17-59); Bilirubin,Total 0.3 mg/dL (0.2-1.3); Blood Urea Nitrogen 47 mg/dL (9-20); Calcium 7.3 mg/dL (8.4-10.2); Carbon Dioxide 24 mmol/L (22-30); Chloride 109 mmol/L (98-107); Estimated CRCL calculation 35 ml/min; Estimated Glomerular Filt Rate 53; Glucose 112 mg/dL (65-110); Potassium 3.9 mmol/L (3.4-5.0); Sodium 137 mmol/L (137-145)
[2023-06-16 06:07] LABS: Procalcitonin 0.1 ng/mL
[2023-06-16 06:37] LABS: Burr Cells 2+ (NORMAL); Poikilocytosis 1+ (NORMAL); Schistocytes None Seen (NORMAL)
--- NOTE | 2023-06-16 09:17 | PM.IMCN ---
Assessment and Plan Assessment and plan (1) Acute non-ST elevation myocardial infarction (NSTEMI): Code(s): I21.4 - Non-ST elevation (NSTEMI) myocardial infarction Status: Acute (2) COVID: Code(s): U07.1 - COVID-19 Status: Acute (3) Community acquired pneumonia of left lower lobe of lung: Code(s): J18.9 - Pneumonia, unspecified organism Status: Acute (4) HTN (hypertension) with goal to be determined: Code(s): I10 - Essential (primary) hypertension Status: Acute (5) CAD (coronary artery disease): Qualifiers: Coronary Disease-Associated Artery/Lesion type: unspecified vessel or lesion type [place] vs. transplanted heart: [place] heart Associated angina: without angina Qualified Code(s): I25.10 - Atherosclerotic heart disease of [place] coronary artery without angina pectoris Code(s): I25.10 - Atherosclerotic heart disease of [place] coronary artery without angina pectoris Status: Acute (6) Leukocytosis: Code(s): D72.829 - Elevated white blood cell count, unspecified Status: Acute Plan And STEMI 83-year-old presented with cough and shortness of breath since past few days along with chest pain that started last evening. Chest pain mid chest retrosternal nonradiating pressure-like sensation relieved with nitroglycerin x2 with further recurrence and came to the ER for evaluation. He does have history of coronary artery disease with placement of stents 20 years ago. He has underlying history of rheumatoid arthritis and takes leflunomide and tofacitinib. ED evaluation with EKG with ST depressions noted in anteroseptal leads. Elevated troponin at 0.186 -0.194-0.198. Diagnosed with non ST elevation [place] and started on heparin drip. Aspirin 325 mg given. He reports no further chest pain. Receives heparin Heparin drip has been stopped and restarted back on Eliquis. Had aspirin 81 mg daily cardiology has been consulted and echo 06/13/2023 with EF 55-60% grade 1 diastolic dysfunction mild aortic valve stenosis trace TR no pulmonary hypertension. On beta-curtis. Allergic to statin. COVID pneumonia superimposed with better pneumonia He was febrile in the ED as 100.7. Tested positive for COVID. Chest x-ray with left lower lobe airspace disease which may represent consolidation or pneumonia in the appropriate context. Leukocytosis at 12 K. he has been started on antibiotics ceftriaxone, cefepime and azithromycin for pneumonia along with remdesivir and dexamethasone for COVID infection. finish remdesivir Leukocytosis persists high, patient is on corticosteroid, changed to cefdinir June 13, add doxycycline p.o.06/14 Follow-up procalcitonin Persistent left lower lobe pneumonia on cxr c/w current abx Discontinue dexamethasone dehydration, and hyponatremia Sodium 135, BUN 42 and creatinine 1.3, trending up Start normal saline IV 75 mL/hour Follow-up BMP He is on Eliquis at home which is on hold while on heparin drip and continues on Plavix. Carotid stenosis status post carotid endarterectomy Hypertension Hyperlipidemia Rheumatoid arthritis HPI Data of Consult Consult date: 06/16/23 Requesting Physician: Alexia Hampton DO Primary Care Provider: Nestor Dangelo DO Consult Narrative Narrative: Jose Maria Baker is a 83 year old male [facility] Past Medical History Medical History (Updated 06/16/23 @ 09:18 by Raquel Garcia MD) CAD (coronary artery disease) Carotid stenosis Dry skin High cholesterol History of stroke Hypertension Inflammatory and immune myopathies Osteoarthritis Rheumatoid arthritis Vitamin D deficiency Surgical History Surgical History Hx of CABG pt and daughter said he had a NM during angiogram and had sternotomy and had 8 stents Family History Family History Father Acute myoca
[2023-06-16] MEDS: CALCIUM CARBONATE (TUMS) 500 MG (200 MG ELEMENTAL) PO (10:01)
[2023-06-16] MEDS: CHOLECALCIFEROL 1,000 UNITS TABLET 2000 UNITS PO (10:02)
[2023-06-16] MEDS: ISOSORBIDE MONONITRATE 30 MG TAB.ER.24H PO (10:02)
[2023-06-16] MEDS: DOXYCYCLINE HYCLATE 100 MG TABLET PO ×2 (10:02→20:14)
[2023-06-16] MEDS: CEFDINIR 300 MG CAPSULE PO ×2 (10:03→20:14)
[2023-06-16] MEDS: CLOPIDOGREL BISULFATE 75 MG TABLET PO (10:03)
[2023-06-16] MEDS: APIXABAN 5 MG TABLET PO ×2 (10:03→20:14)
[2023-06-16] MEDS: lisinopriL 20 MG TABLET PO (10:03)
[2023-06-16] MEDS: METOPROLOL SUCCINATE EXT REL 25 MG TABCR PO (10:06)
--- NOTE | 2023-06-16 10:42 | PCNWS ---
Weekly nutritional screen. Patient is tolerating current diet with adequate intake. No weight loss reported. No nutritional needs at this time.
--- NOTE | 2023-06-16 15:39 | PC.NURSE ---
Pt stated that he was feeling sick on 06/05 but tested negative for COVID. Tested positive on day of admission to the hospital. Patience from Infectious Disease gave the Ok to take off of isolation.
[2023-06-17] VITALS: PULSE 57
[2023-06-17 04:00] VITALS: PULSE 52
[2023-06-17 04:36] VITALS: BP 146/53; PULSE 57; RESP 16; TEMP 36.1; O2SAT 95
[2023-06-17 06:02] LABS: Hematocrit 31.7 % (42.0-52.0); Hemoglobin 9.9 g/dL (14.0-18.0); Mean Corpuscular HGB Conc 31.2 g/dl (32-36); Mean Corpuscular Hemoglobin 25.1 pg (26-34); Mean Corpuscular Volume 80.5 fl (80-100); Mean Platelet Volume 10.2 fl (7.4-10.4); Platelet Count Result 329 k/mm3 (150-375); Red Blood Count 3.94 M/mm3 (4.6-6.20); Red Cell Distribution Width 17.9 % (11.5-14.5); White Blood Count 17.4 K/mm3 (4.5-10.0)
[2023-06-17 06:13] LABS: Alanine Aminotransferase 35 U/L (6-50); Albumin Level 2.3 g/dL (3.5-5.1); Alkaline Phosphatase 43 U/L (38-126); Anion Gap 3 mmol/L (8-16); Aspartate Amino Transferase 40 U/L (17-59); Bilirubin,Total 0.3 mg/dL (0.2-1.3); Blood Urea Nitrogen 47 mg/dL (9-20); Calcium 7.4 mg/dL (8.4-10.2); Carbon Dioxide 24 mmol/L (22-30); Chloride 109 mmol/L (98-107); Estimated CRCL calculation 31 ml/min; Estimated Glomerular Filt Rate 41; Glucose 86 mg/dL (65-110); Potassium 3.9 mmol/L (3.4-5.0); Sodium 136 mmol/L (137-145)
[2023-06-17 06:42] LABS: Lymphocytes Absolute Manual 1.91 K/mm3 (1.1-4.5); Monocytes Absolute Manual 1.04 K/mm3 (0.1-0.90); Monocytes Percent Manual 6 % (3-9); Neutrophils Percent Manual 83 % (46-73); Platelet Estimate Adequate (Adequate); Total Cells Counted 100
[2023-06-17 06:43] LABS: Anisocytosis 1+ (NORMAL); Ovalocytes 1+ (NORMAL); Poikilocytosis 1+ (NORMAL); Schistocytes None Seen (NORMAL)
--- NOTE | 2023-06-17 07:48 | PM.DS ---
DS: Admitting Diagnosis Discharge Date today Admitting Diagnosis (1) Acute non-ST elevation myocardial infarction (NSTEMI): ?Code(s): I21.4 - Non-ST elevation (NSTEMI) myocardial infarction ?Status:?Acute (2) COVID: ?Code(s): U07.1 - COVID-19 ?Status:?Acute (3) Community acquired pneumonia of left lower lobe of lung: ?Code(s): J18.9 - Pneumonia, unspecified organism ?Status:?Acute (4) HTN (hypertension) with goal to be determined: ?Code(s): I10 - Essential (primary) hypertension ?Status:?Acute (5) CAD (coronary artery disease): ?Qualifiers: ?Coronary Disease-Associated Artery/Lesion type:?unspecified vessel or lesion type??[place] vs. transplanted heart:?[place] heart??Associated angina:?without angina? Qualified Code(s):?I25.10 - Atherosclerotic heart disease of [place] coronary artery without angina pectoris ?Code(s): I25.10 - Atherosclerotic heart disease of [place] coronary artery without angina pectoris ?Status:?Acute (6) Leukocytosis: ?Code(s): D72.829 - Elevated white blood cell count, unspecified ?Status:?Acute DS: Discharge Diagnosis Discharge Diagnosis (1) Acute non-ST elevation myocardial infarction (NSTEMI): Code(s): I21.4 - Non-ST elevation (NSTEMI) myocardial infarction Status: Acute (2) COVID: Code(s): U07.1 - COVID-19 Status: Acute (3) Community acquired pneumonia of left lower lobe of lung: Code(s): J18.9 - Pneumonia, unspecified organism Status: Acute (4) HTN (hypertension) with goal to be determined: Code(s): I10 - Essential (primary) hypertension Status: Acute (5) CAD (coronary artery disease): Qualifiers: Coronary Disease-Associated Artery/Lesion type: unspecified vessel or lesion type [place] vs. transplanted heart: [place] heart Associated angina: without angina Qualified Code(s): I25.10 - Atherosclerotic heart disease of [place] coronary artery without angina pectoris Code(s): I25.10 - Atherosclerotic heart disease of [place] coronary artery without angina pectoris Status: Acute (6) Leukocytosis: Code(s): D72.829 - Elevated white blood cell count, unspecified Status: Acute DS: Summary Hospital Course Hospital Course: 83-year-old presented with cough and shortness of breath since past few days along with chest pain that started in the evening POA in ED The following medical issues have been addressed during hospitalization Chest pain mid chest retrosternal nonradiating pressure-like sensation relieved with nitroglycerin x2 with further recurrence and came to the ER for evaluation. ? coronary artery disease with placement of stents 20 years ago.? ED evaluation with EKG with ST depressions noted in anteroseptal leads.? Elevated troponin at 0.186 -0.194-0.198.? Diagnosed with non ST elevation [place] and started on heparin drip.? Aspirin 325 mg given.? Receives heparin Heparin drip has been stopped and restarted back on Eliquis. Had aspirin 81 mg daily cardiology has been consulted echo 06/13/2023 with EF 55-60% grade 1 diastolic dysfunction mild aortic valve stenosis trace TR no pulmonary hypertension.? On beta-curtis.? Allergic to statin.? 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 Tested positive for COVID. Chest x-ray with left lower lobe airspace disease which may represent consolidation or pneumonia in the appropriate context.? Leukocytosis at 12 K. he has been started on antibiotics ceftriaxone, cefepime and azithromycin for pneumonia along with remdesivir and dexamethasone for COVID infection. finish remdesivir Leukocytosis persists high, patient is not on corticosteroid, changed to cefdinir June 13, add doxycycline p.o.06/14 Follow-up procalcitonin Persistent left lower lobe pneumonia on cxr wbd trends down c/w current
[2023-06-17 08:00] VITALS: PULSE 53
[2023-06-17 08:34] VITALS: BP 128/57; PULSE 57; O2SAT 98
[2023-06-17] MEDS: CHOLECALCIFEROL 1,000 UNITS TABLET 2000 UNITS PO (08:37)
[2023-06-17] MEDS: DOXYCYCLINE HYCLATE 100 MG TABLET PO (08:37)
[2023-06-17] MEDS: CEFDINIR 300 MG CAPSULE PO (08:37)
[2023-06-17] MEDS: ISOSORBIDE MONONITRATE 30 MG TAB.ER.24H PO (08:37)
[2023-06-17 08:38] VITALS: PULSE 58
[2023-06-17] MEDS: APIXABAN 5 MG TABLET PO (08:38)
[2023-06-17] MEDS: lisinopriL 20 MG TABLET PO (08:38)
[2023-06-17] MEDS: METOPROLOL SUCCINATE EXT REL 25 MG TABCR PO (08:38)
[2023-06-17] MEDS: CLOPIDOGREL BISULFATE 75 MG TABLET PO (08:38)
--- NOTE | 2023-06-17 09:17 | PM.IMPN ---
Progress Note: A&P Assessment and Plan (1) Acute non-ST elevation myocardial infarction (NSTEMI): Code(s): I21.4 - Non-ST elevation (NSTEMI) myocardial infarction Status: Acute (2) COVID: Code(s): U07.1 - COVID-19 Status: Acute (3) Community acquired pneumonia of left lower lobe of lung: Code(s): J18.9 - Pneumonia, unspecified organism Status: Acute (4) HTN (hypertension) with goal to be determined: Code(s): I10 - Essential (primary) hypertension Status: Acute (5) CAD (coronary artery disease): Qualifiers: Coronary Disease-Associated Artery/Lesion type: unspecified vessel or lesion type [place] vs. transplanted heart: [place] heart Associated angina: without angina Qualified Code(s): I25.10 - Atherosclerotic heart disease of [place] coronary artery without angina pectoris Code(s): I25.10 - Atherosclerotic heart disease of [place] coronary artery without angina pectoris Status: Acute (6) Leukocytosis: Code(s): D72.829 - Elevated white blood cell count, unspecified Status: Acute Plan 83-year-old presented with cough and shortness of breath since past few days along with chest pain that started last evening.? Chest pain mid chest retrosternal nonradiating pressure-like sensation relieved with nitroglycerin x2 with further recurrence and came to the ER for evaluation. ? coronary artery disease with placement of stents 20 years ago.? ED evaluation with EKG with ST depressions noted in anteroseptal leads.? Elevated troponin at 0.186 -0.194-0.198.? Diagnosed with non ST elevation [place] and started on heparin drip.? Aspirin 325 mg given.? Receives heparin Heparin drip has been stopped and restarted back on Eliquis. Had aspirin 81 mg daily cardiology has been consulted and echo 06/13/2023 with EF 55-60% grade 1 diastolic dysfunction mild aortic valve stenosis trace TR no pulmonary hypertension.? On beta-curtis.? Allergic to statin.? 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 Tested positive for COVID. Chest x-ray with left lower lobe airspace disease which may represent consolidation or pneumonia in the appropriate context.? Leukocytosis at 12 K. he has been started on antibiotics ceftriaxone, cefepime and azithromycin for pneumonia along with remdesivir and dexamethasone for COVID infection. finish remdesivir Leukocytosis persists high, patient is not on corticosteroid, changed to cefdinir June 13, add doxycycline p.o.06/14 Follow-up procalcitonin Persistent left lower lobe pneumonia on cxr wbd trends down c/w current abx at discharge dehydration, and hyponatremia received normal saline IV 75 mL/hour ?Carotid stenosis status post carotid endarterectomy on plavix Rheumatoid arthritis on leflunomide and tofacitinib.? see ophthalmic lens inspector at scheduled appointment Subjective Date/time seen: 06/17/23 09:17 Interval history: Patient feels better today, patient is afebrile, blood pressure stable but he white blood cell is improving on antibiotics Objective Data Vital Signs Vital Signs: Vital Signs - 24 hr 06/16/23 10:02 06/16/23 10:04 06/16/23 10:06 Temperature Pulse Rate 63 63 Respiratory Rate 14 Blood Pressure 144/50 H Pulse Oximetry 99 Oxygen Delivery Room Air 06/16/23 10:00 06/16/23 13:07 06/16/23 14:00 Temperature 98.3 F Pulse Rate 60 Respiratory Rate 20 Blood Pressure 158/59 H Pulse Oximetry 98 100 Oxygen Delivery Room Air Room Air 06/16/23 12:00 06/16/23 16:00 06/16/23 19:40 Temperature 97.8 F Pulse Rate 54 L 56 L 60 Respiratory Rate 16 Blood Pressure 130/52 L Pulse Oximetry 97 Oxygen Delivery 06/16/23 20:00 06/16/23 20:00 06/17/23 00:00 Temperature Pulse Rate 57 L 60 57 L Respiratory Rate 16 Blood Pressure Pulse Oximetry 97 Oxygen Delivery Room
== END 2023-06-17 10:20 | disposition home health service (06) | DRG 177 ==
LOC: ANHED 16:40 → ANHIMU 17:11 → ANH3MED 06-14 17:20
PROVIDERS: Emergency Medicine; Internal Medicine; Internal Medicine Cardiovascular Disease; Nurse Practitioner; Physician Assistant; Admitting Provider Student in an Organized Health Care Education/Training Program; Emergency Provider Student in an Organized Health Care Education/Training Program; PCP Family Medicine; Visit Provider Hospitalist
DX: U07.1 COVID-19 (principal); I21.4 Non-ST elevation (NSTEMI) myocardial infarction; J12.82 Pneumonia due to coronavirus disease 2019; J15.9 Unspecified bacterial pneumonia; E87.1 Hypo-osmolality and hyponatremia; E86.0 Dehydration; I25.10 Atherosclerotic heart disease of native coronary artery without angina pectoris; I65.29 Occlusion and stenosis of unspecified carotid artery; M19.90 Unspecified osteoarthritis, unspecified site; M06.9 Rheumatoid arthritis, unspecified; I10 Essential (primary) hypertension; Z86.73 Personal history of transient ischemic attack (TIA), and cerebral infarction without residual deficits; Z95.1 Presence of aortocoronary bypass graft; Z95.5 Presence of coronary angioplasty implant and graft; Z79.01 Long term (current) use of anticoagulants
CPT/HCPCS: 36415; 71045; 71046; 80053; 81003; 82565; 83605; 83690; 83735; 84145; 84460; 84484; 85025; 85610; 85730; 86140; 87040; 87637; 93005; 97161; 99291; A9270; C8929; J0248; J0456; J0696; J1644; J7030; J8540; Q9957

== ENCOUNTER 2023-07-10 21:07 | Inpatient (IN) | payer OTHER, SELFPAY ==
--- NOTE | ~2023-07-10 | XR_ITS ---
EXAMINATION: XR chest 2V Exam Date/Time: 07/10/2023 21:47 CDT HISTORY: Chest pain Comparison: 06/14/2023 and 06/10/2023. RESULT: Lines, tubes, and devices: Intact sternotomy wires. Lungs and pleura: Senescent changes, old granulomatous disease, otherwise clear. Cardiomediastinal silhouette: Stable. Other: No acute osseous or upper abdominal finding. IMPRESSION: No acute cardiopulmonary process. Reviewed, dictated and finalized at location K.
--- NOTE | 2023-07-10 21:08 | ECG_ITS ---
Measurements Intervals [place] Rate: 78 P: 61 ID: 190 QRS: 43 QRSD: 101 T: 50 QT: 404 QTc: 461 Interpretive Statements SINUS RHYTHM ST DEVIATION AND MODERATE T-WAVE ABNORMALITY, CONSIDER INFERIOR ISCHEMIA [-0.1+ mV T WAVE IN II/aVF] COMPARED TO ECG 06/14/2023 09:25:[address] SEGMENT CHANGES ARE MORE PRONOUNCED Electronically Signed On 07-11-2023 19:49:03 CDT by Magy Edgar M.D.
[2023-07-10 21:18] VITALS: BP 142/55; PULSE 82; RESP 16; TEMP 36.6; O2SAT 98
[2023-07-10 21:35] LABS: Basophils Absolute Auto 0.1 K/mm3 (0.0-0.1); Basophils Percent Auto 0.6 % (0.2-1.2); Eosinophils Absolute Auto 0.3 K/mm3 (0-0.3); Eosinophils Percent Auto 3.1 % (0-4.4); Hematocrit 32.5 % (42.0-52.0); Hemoglobin 9.9 g/dL (14.0-18.0); Immature Granulocyte Absolute 0.07 K/mm3 (0.00-0.031); Immature Granulocyte Percent A 0.8 % (0-0.5); Lymphocytes Absolute Auto 0.96 K/mm3 (0.9-3.2); Lymphocytes Percent Auto 11.5 % (18.3-44.2); Mean Corpuscular HGB Conc 30.5 g/dl (32-36); Mean Corpuscular Hemoglobin 25.3 pg (26-34); Mean Corpuscular Volume 83.1 fl (80-100); Monocytes Absolute Auto 0.7 K/mm3 (0.1-0.6); Monocytes Percent Auto 8.2 % (2.6-8.5); Neutrophils Absolute Auto 6.4 K/mm3 (1.3-6.7); Neutrophils Percent Auto 75.8 % (45.5-73.1); Platelet Count Result 346 k/mm3 (150-375); Red Blood Count 3.91 M/mm3 (4.6-6.20); Red Cell Distribution Width 18.8 % (11.5-14.5); White Blood Count 8.4 K/mm3 (4.5-10.0)
[2023-07-10 21:42] VITALS: O2SAT 99
[2023-07-10 21:46] LABS: Alanine Aminotransferase 22 U/L (6-50); Albumin Level 3.7 g/dL (3.5-5.1); Alkaline Phosphatase 78 U/L (38-126); Anion Gap 8 mmol/L (8-16); Aspartate Amino Transferase 40 U/L (17-59); Bilirubin,Total 0.4 mg/dL (0.2-1.3); Blood Urea Nitrogen 27 mg/dL (9-20); Calcium 8.8 mg/dL (8.4-10.2); Carbon Dioxide 23 mmol/L (22-30); Chloride 108 mmol/L (98-107); Estimated CRCL calculation 29 ml/min; Estimated Glomerular Filt Rate 41; Glucose 94 mg/dL (65-110); INR 1.1; Lipase 249 U/L (23-300); Potassium 3.5 mmol/L (3.4-5.0); Prothrombin Time 14.7 Seconds (11.1-14.7); Sodium 139 mmol/L (137-145)
[2023-07-10] MEDS: ASPIRIN 81 MG CHEWABLE TABLET 324 MG PO (21:46)
--- NOTE | 2023-07-10 21:47 | PC.NURSE ---
pt already had 81mg aspirin at home, so I administered 243mg per chest pain protocol
[2023-07-10 21:48] LABS: Partial Thromboplastin Time 36.9 SECONDS (22.3-36.8)
[2023-07-10 22:05] LABS: Troponin I 0.085 ng/mL (0.000-0.034)
[2023-07-10] MEDS: NITROGLYCERIN OINTMENT 1 INCH DOSE TRANSDERM (22:33)
--- NOTE | 2023-07-10 22:48 | ED.GENADULT ---
HPI - General Adult General Chief complaint: Chest Pain Stated complaint: Chest pain, took 3 nitro Time Seen by Provider: 07/10/23 21:59 History of Present Illness HPI narrative: Patient 83-year-old presents chest pain. Patient reports he is just in the hospital was discharged Monday patient reports that he had a non-STEMI at that time and they are planning ongoing medical management and then ultimately In the future. Patient states that today he had an episode of chest discomfort took 3 nitro and his pain is resolved now. Related Data Home Medications Medication Instructions Recorded Confirmed alendronate 70 mg tablet 70 mg PO WEEKLY 12/08/19 07/10/23 amlodipine 5 mg tablet 5 mg PO DAILY 12/08/19 07/10/23 cholecalciferol (vitamin D3) 50 2,000 unit PO DAILY 12/08/19 07/10/23 mcg (2,000 unit) chewable tablet leflunomide 20 mg tablet 20 mg PO DAILY 12/08/19 07/10/23 tofacitinib 5 mg tablet 5 mg PO DAILY 12/08/19 07/10/23 calcium carbonate 500 mg calcium 500 mg PO DAILY 12/06/22 07/10/23 (1,250 mg) chewable tablet (Calcium 500) lisinopril 20 mg tablet 20 mg PO DAILY 12/06/22 07/10/23 nitroglycerin 0.4 mg sublingual 0.4 mg sublingual Q5M PRN Chest 12/06/22 07/10/23 tablet Pain empagliflozin 10 mg tablet 10 mg PO DAILY 07/10/23 07/10/23 Allergies Allergy/AdvReac Type Severity Reaction Status Date / Time atorvastatin Allergy Unknown Verified 07/10/23 11:08 hydroxychloroquine Allergy Unknown Verified 07/10/23 11:08 peanut Allergy Unknown Verified 07/10/23 11:08 Penicillins Allergy Unknown Verified 07/10/23 11:08 Sulfa (Sulfonamide Allergy Unknown Verified 07/10/23 11:08 Antibiotics) Review of Systems Review of Systems: A 10 system review of systems was completed on the patient and is negative except for what is stated in the HPI. Nursing and ancillary documentation was reviewed. [facility] Past Medical History Medical History (Updated 07/10/23 @ 22:51 by Pb Smallwood MD) CAD (coronary artery disease) Carotid stenosis Dry skin High cholesterol History of stroke Hypertension Inflammatory and immune myopathies Osteoarthritis Rheumatoid arthritis Vitamin D deficiency Surgical History Surgical History Hx of CABG pt and daughter said he had a [place] during angiogram and had sternotomy and had 8 stents Family History Family History Father Acute myocardial infarction Hypertension Mother Acute myocardial infarction Social History Social History Social History: Patient has not smoked or drink alcohol since 1999. 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 He designates his daughter Yoko as his surrogate decision maker. He would like to be a full code. Smoking status: Former smoker Tobacco type: cigarettes Second hand tobacco smoke exposure: No Smoking end date: 01/27/02 Alcohol intake: never Substance use: never Substance use type: does not use Lack of Transportation: No Lack of Food: Never True Current Housing: I Have Housing Concerned About Future Housing: No Difficulty Paying Gas/Electric Bills: No Difficulty Paying for Meds: No Currently Unemployed: No Education: High School Diploma/GED Difficulty w/ Childcare or Family Care: No Gender identity (if verbalized by the patient): Male Spiritual care concerns: No Agree to blood products: Yes Exam Narrative: GENERAL: Well-appearing, well-nourished, and in no acute distress. HEAD: Normocephalic, atraumatic. EYES: PERRLA and EOMI. ENT: Nares clear, no rhinorrhea or epistaxis. Mucous membranes moist. NECK: Supple. CHEST: Clear to auscultation. No respiratory distress. HEART: Regular rate and rhythm. No murmur heard. Normal peripheral pulses. ABDOMEN: Soft, nontender, nondistended, normal active bowel sounds. EX
[2023-07-10] MEDS: HEPARIN SODIUM 5,000 UNITS/ML VIAL 4000 UNITS IV PUSH (22:49)
[2023-07-10] MEDS: HEPARIN SOD/D5W 100 UNITS/ML 25,000 UNITS/250 ML BAG 8 UNITS IV CONT (22:49)
--- NOTE | 2023-07-10 23:08 | PM.IMHP ---
H&P: HPI History of Present Illness Date/Time: 07/10/23 23:08 Chief Complaint: CHEST PAIN Narrative: THIS IS AN 83-YEAR-OLD MALE WITH PAST MEDICAL HISTORY SIGNIFICANT FOR CORONARY ARTERY DISEASE STATUS POST CORONARY ARTERY BYPASS GRAFTING 30 YEARS AGO 6 VESSEL DISEASE, TYPE 2 DIABETES MELLITUS, RHEUMATOID ARTHRITIS. PATIENT USUALLY GETS HIS CARE THROUGH THE [facility] RECENTLY SPENT 2 WEEKS AT THE HOSPITAL RECENTLY DISCHARGED WHEN HOME COMES DUE TO CHEST PAIN THAT OCCURS MAINLY WHEN LAYING DOWN PATIENT TAKES NITRO TOOK 2 NITROS AFTER TAKING THE 3RD NITRO DECIDED TO COME TO THE EMERGENCY ROOM HE HAD BEEN ADVISED. PATIENT STATES THAT PAIN IS NOT RELATED TO ACTIVITY OR FOOD INTAKE 8 ON AND OFF IT IS LOCALIZED TO THE RETROSTERNAL AREA NONRADIATING ,NO COUGH, NO NAUSEA, NO VOMITING, NO SHORTNESS OF BREATH ,NO PALPITATIONS, NO SYNCOPE OR NEAR SYNCOPE, LIGHTHEADEDNESS OR DIZZINESS ASSOCIATED WITH IT. PRELIMINARY WORKUP WAS SIGNIFICANT FOR CBC HEMOGLOBIN OF 9.9 HEMATOCRIT 32 BUN 27 CREATININE 1.6 TROPONINS X2 0.085 AND 0.089 A CHEST X-RAY WAS REPORTED : EXAMINATION:? XR chest 2V Exam Date/Time:? 07/10/2023 21:47 CDT HISTORY: Chest pain ? Comparison:? 06/14/2023 and 06/10/2023. RESULT: Lines, tubes, and devices:? Intact sternotomy wires. Lungs and pleura:? Senescent changes, old granulomatous disease, otherwise clear. Cardiomediastinal silhouette:? Stable. Other:? No acute osseous or upper abdominal finding. ? IMPRESSION: No acute cardiopulmonary process. EKG Rate 78 MT 190 QRSd 101 QT 404 QTc 461 --[place]-- P 61 QRS 43 T [address] DEVIATION AND MODERATE T-WAVE ABNORMALITY, CONSIDER INFERIOR ISCHEMIA [-0.1+ mV T WAVE IN II/aVF] COMPARED TO ECG 06/14/2023 09:25:47 NO SIGNIFICANT CHANGES Review of Systems Review of Systems: RETROSTERNAL CHEST PAIN WHEN LAYING DOWN IN BED Constitutional: Constitutional: Denies chills, Denies fatigue, Denies fever(s), Denies malaise, Denies night sweats, Denies poor appetite and Denies weakness Eyes: Eyes: Denies change in vision ENT: Denies dysphagia, Denies vertigo, Denies dizziness and Denies odynophagia Cardiovascular: Cardiovascular: Reports chest pain, Reports chest pain at rest, Denies irregular heart rhythm, Denies leg edema, Denies lightheadedness, Denies radiating jaw, neck or arm pain, Denies palpitations, Denies orthopnea and Denies paroxysmal nocturnal dyspnea Respiratory: Respiratory: Denies chest congestion, Denies cough, Denies dyspnea and Denies dyspnea on exertion Gastrointestinal: Gastrointestinal: Denies abdominal pain, Denies dyspepsia, Denies heartburn, Denies diarrhea, Denies nausea and Denies vomiting Genitourinary: Genitourinary: Denies dysuria Musculoskeletal: Musculoskeletal: Denies back pain, Denies arthralgias, Denies joint swelling and Denies muscle weakness Integumentary/Breasts: Skin/Breast: Denies rash Neurologic: Denies vertigo, Denies dizziness, Denies focal weakness and Denies Sensory deficit (Neuro) Psychiatric: Psychiatric: Reports no additional psychiatric complaints and Reports as per HPI Endocrine: Endocrine: Denies cold intolerance, Denies fatigue, Denies flushing, Denies heat intolerance, Denies polyphagia, Denies polydipsia and Denies palpitations Hematologic/Lymphatic: Hematologic/Lymphatic: Reports no additional hematologic/lymphatic complaints and Reports as per HPI Allergic/Immunologic: Allergic/Immunologic: Reports no additional allergic/immunologic complaints and Reports as per HPI PMFSH Past Medical History Medical History (Updated 07/10/23 @ 22:51 by Pb Smallwood MD) CAD (coronary artery disease) Carotid stenosis Dry skin High cholesterol History of stroke Hypertension Inflammatory and immune myopathies Osteoarthritis Rheumatoid arthritis Vitamin D deficiency Surgical History Surgical History Hx of CABG pt and daughter said he had a ND
--- NOTE | 2023-07-10 23:48 | ADMGEN ---
This patient, Jose Maria Baker, was admitted to IMU Room 205-01 @ 2349 Patient/family oriented to hospital policies and general routines including ID bracelet, bed and alarms, visiting hours, pain management, procedures, bathroom and other care routines, personal items, smoking policy, room service/diet, and visiting hours. Information on how to activate the Rapid Response Team has been discussed. Patient/Family are encouraged to report perceived risks to care and to ask questions if they do not understand what they are told or what they should do.
[2023-07-10 23:50] VITALS: BP 146/66; PULSE 76; RESP 16; TEMP 35.9; O2SAT 98; BMI 20.2
[2023-07-11] VITALS (17 sets, daily range): BP systolic 125–146; BP diastolic 45–55; PULSE 66–80; RESP 16–20; TEMP 36.1–36.7; O2SAT 95–99
[2023-07-11 01:35] LABS: Troponin I 0.089 ng/mL (0.000-0.034)
[2023-07-11 05:16] LABS: Basophils Absolute Auto 0.1 K/mm3 (0.0-0.1); Basophils Percent Auto 0.7 % (0.2-1.2); Eosinophils Absolute Auto 0.3 K/mm3 (0-0.3); Hematocrit 32.4 % (42.0-52.0); Hemoglobin 9.7 g/dL (14.0-18.0); Immature Granulocyte Absolute 0.06 K/mm3 (0.00-0.031); Immature Granulocyte Percent A 0.9 % (0-0.5); Lymphocytes Absolute Auto 1.01 K/mm3 (0.9-3.2); Lymphocytes Percent Auto 15.1 % (18.3-44.2); Mean Corpuscular HGB Conc 29.9 g/dl (32-36); Mean Corpuscular Hemoglobin 25.3 pg (26-34); Mean Corpuscular Volume 84.6 fl (80-100); Mean Platelet Volume 9.9 fl (7.4-10.4); Monocytes Absolute Auto 0.7 K/mm3 (0.1-0.6); Monocytes Percent Auto 10.4 % (2.6-8.5); Neutrophils Absolute Auto 4.6 K/mm3 (1.3-6.7); Neutrophils Percent Auto 68.9 % (45.5-73.1); Platelet Count Result 288 k/mm3 (150-375); Red Blood Count 3.83 M/mm3 (4.6-6.20); Red Cell Distribution Width 18.8 % (11.5-14.5); White Blood Count 6.7 K/mm3 (4.5-10.0)
[2023-07-11 05:27] LABS: Partial Thromboplastin Time 36.2 SECONDS (22.3-36.8)
[2023-07-11 05:42] LABS: Troponin I 0.089 ng/mL (0.000-0.034)
[2023-07-11] MEDS: NITROGLYCERIN OINTMENT 1 INCH DOSE TRANSDERM ×3 (05:46→17:09)
[2023-07-11] MEDS: HEPARIN SODIUM 5,000 UNITS/ML VIAL 4000 UNITS IV PUSH ×2 (05:49→19:36)
[2023-07-11] MEDS: CALCIUM CARBONATE (TUMS) 500 MG (200 MG ELEMENTAL) PO (08:53)
[2023-07-11] MEDS: LEFLUNOMIDE 20 MG TABLET PO (08:54)
[2023-07-11] MEDS: amLODIPine BESYLATE 5 MG TABLET PO (08:54)
[2023-07-11] MEDS: CHOLECALCIFEROL 1,000 UNITS TABLET 2000 UNITS PO (08:54)
[2023-07-11] MEDS: ISOSORBIDE MONONITRATE 30 MG TAB.ER.24H PO (08:54)
[2023-07-11] MEDS: ROSUVASTATIN 20 MG TABLET 40 MG BY MOUTH (08:54)
[2023-07-11] MEDS: METOPROLOL SUCCINATE EXT REL 12.5 MG TABCR 37.5 MG PO (08:54)
[2023-07-11] MEDS: lisinopriL 20 MG TABLET PO (08:54)
[2023-07-11] MEDS: CLOPIDOGREL BISULFATE 75 MG TABLET PO (08:54)
--- NOTE | 2023-07-11 09:20 | PM.CNCAR ---
History of Present Illness History of Present Illness Consult date/time: 07/11/23 09:20 Reason For Visit: Chest Pain Elevated Troponin Narrative: Hematocrit 32, GFR 41, troponin 0.089, 0.089, 0.085 07/10/2023 EKG: NSR rate 78, ST and T-wave changes inferolaterally somewhat more pronounced compared to 06/14/2023 [facility] Past Medical History Medical History (Updated 07/10/23 @ 22:51 by Pb Smallwood MD) CAD (coronary artery disease) Carotid stenosis Dry skin High cholesterol History of stroke Hypertension Inflammatory and immune myopathies Osteoarthritis Rheumatoid arthritis Vitamin D deficiency Surgical History Surgical History Hx of CABG pt and daughter said he had a GA during angiogram and had sternotomy and had 8 stents Family History Family History Father Acute myocardial infarction Hypertension Mother Acute myocardial infarction Social History Social History Social History: Patient has not smoked or drink alcohol since 1999. 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 He designates his daughter Yoko as his surrogate decision maker. He would like to be a full code. Smoking status: Never smoker Tobacco type: cigarettes Second hand tobacco smoke exposure: No Smoking end date: 01/27/02 Alcohol intake: never Substance use: never Substance use type: does not use Lack of Transportation: No Lack of Food: Never True Current Housing: I Have Housing Concerned About Future Housing: No Difficulty Paying Gas/Electric Bills: No Difficulty Paying for Meds: No Currently Unemployed: No Education: High School Diploma/GED Difficulty w/ Childcare or Family Care: No Gender identity (if verbalized by the patient): Male Spiritual care concerns: No Agree to blood products: Yes Meds Home Medications and Allergies Home Medications Medication Instructions Recorded Confirmed Type alendronate 70 mg tablet 70 mg PO WEEKLY 12/08/19 07/11/23 History amlodipine 5 mg tablet 5 mg PO DAILY 12/08/19 07/11/23 History cholecalciferol (vitamin D3) 50 2,000 unit PO DAILY 12/08/19 07/11/23 History mcg (2,000 unit) chewable tablet leflunomide 20 mg tablet 20 mg PO DAILY 12/08/19 07/11/23 History tofacitinib 5 mg tablet 5 mg PO DAILY 12/08/19 07/11/23 History apixaban 5 mg tablet (Eliquis) 5 mg PO Q12HR #60 tabs 12/09/19 07/11/23 Rx clopidogrel 75 mg tablet (Plavix) 75 mg PO DAILY #30 tabs 01/29/20 07/11/23 Rx calcium carbonate 500 mg calcium 500 mg PO DAILY 12/06/22 07/11/23 History (1,250 mg) chewable tablet (Calcium 500) lisinopril 20 mg tablet 20 mg PO DAILY 12/06/22 07/11/23 History nitroglycerin 0.4 mg sublingual 0.4 mg sublingual Q5M PRN Chest 12/06/22 07/11/23 History tablet Pain isosorbide mononitrate 30 mg 30 mg PO QAM #30 tabs 06/17/23 07/11/23 Rx tablet,extended release 24 hr empagliflozin 10 mg tablet 10 mg PO DAILY 07/10/23 07/11/23 History metoprolol succinate 25 mg 37.5 mg PO QAM 07/11/23 07/11/23 History tablet,extended release 24 hr (Toprol XL) rosuvastatin 40 mg BYMOUTH DAILY 07/11/23 07/11/23 History Allergies Allergy/AdvReac Type Severity Reaction Status Date / Time atorvastatin Allergy Unknown Verified 07/10/23 11:08 hydroxychloroquine Allergy Unknown Verified 07/10/23 11:08 peanut Allergy Unknown Verified 07/10/23 11:08 Penicillins Allergy Unknown Verified 07/10/23 11:08 Sulfa (Sulfonamide Allergy Unknown Verified 07/10/23 11:08 Antibiotics) Vital Signs Vital Signs - 24 hr 07/10/23 21:18 07/10/23 21:42 07/10/23 23:50 Temperature 97.9 F 96.6 F L Pulse Rate 82 76 Respiratory Rate 16 16 Blood Pressure 142/55 H 146/66 H Pulse Oximetry 98 99 98 Oxygen Delivery Room Air Room Air 07/11/23 00:00 07/11/23 02:00 07/11/23 03:51 Temperature
--- NOTE | 2023-07-11 12:15 | PM.CNCAR ---
Assessment and Plan Assessment and plan (1) Chest pain: Code(s): R07.9 - Chest pain, unspecified Status: Acute Assessment and Plan: Probably related to underlying CAD given history of 8 stents over 30 years ago. EKG shows borderline ST abnormality. Troponin is mildly elevated and flat at .089. Discuss with patient and patient's daughter and family about risks/benefits/alternative to LHC and they want to discuss it further amongst themselves. They will let us know if they want LHC vs medical therapy. His last dose of Eliquis was yesterday morning. On heparin drip, Plavix, rosuvastatin, Toprol, Lisinopril, Imdur. Check troponin in AM. (2) Elevated troponin: Code(s): R79.89 - Other specified abnormal findings of blood chemistry Status: Acute (3) CAD (coronary artery disease): Qualifiers: Coronary Disease-Associated Artery/Lesion type: unspecified vessel or lesion type [place] vs. transplanted heart: [place] heart Associated angina: without angina Qualified Code(s): I25.10 - Atherosclerotic heart disease of [place] coronary artery without angina pectoris Code(s): I25.10 - Atherosclerotic heart disease of [place] coronary artery without angina pectoris Status: Acute (4) HLD (hyperlipidemia): Qualifiers: Hyperlipidemia type: unspecified Qualified Code(s): E78.5 - Hyperlipidemia, unspecified Code(s): E78.5 - Hyperlipidemia, unspecified Status: Acute Assessment and Plan: On rosuvastatin. (5) PAF (paroxysmal atrial fibrillation): Code(s): I48.0 - Paroxysmal atrial fibrillation Status: Acute Assessment and Plan: In sinus rhythm. On Eliquis. (6) HTN (hypertension) with goal to be determined: Code(s): I10 - Essential (primary) hypertension Status: Acute Assessment and Plan: Stable. 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 He has a history of CAD with 8 stents placed about 30 years ago and at the time had cardiac arrest, open heart was performed to repair heart muscle in 1999 at [facility], PAF in November 2019, dyslipidemia, hypertension, stroke, RA. States yesterday he had chest pain and took NTG SL and when he required 3rd dose, his daughter had him come in for evaluation. Reports he has intermittent chest pain at rest and with exertion such as walking. He is limited at walking short distance down the hallway due to feet pain from RA primarily. Denies sob, orthopnea, edema, palpitations. Review of Systems Constitutional: Constitutional: Reports as per HPI, Denies chills and Denies fever(s) Cardiovascular: Cardiovascular: Reports as per HPI, Reports chest pain and Denies irregular heart rhythm Respiratory: Respiratory: Reports as per HPI and Denies dyspnea Gastrointestinal: Gastrointestinal: Reports as per HPI and Denies abdominal pain Genitourinary: Genitourinary: Reports as per HPI and Denies dysuria Musculoskeletal: Musculoskeletal: Reports as per HPI and Reports arthralgias Neurologic: Reports as per HPI, Denies dizziness and Denies syncope [facility] Past Medical History Medical History (Updated 07/10/23 @ 22:51 by Pb Smallwood MD) CAD (coronary artery disease) Carotid stenosis Dry skin High cholesterol History of stroke Hypertension Inflammatory and immune myopathies Osteoarthritis Rheumatoid arthritis Vitamin D deficiency Surgical History Surgical History Hx of CABG pt and daughter said he had a [place] during angiogram and had sternotomy and had 8 stents Family History Family History Father Acute myocardial infarction
[2023-07-11 12:26] LABS: Partial Thromboplastin Time 74.2 SECONDS (22.3-36.8)
--- NOTE | 2023-07-11 13:17 | PM.IMPN ---
Progress Note: A&P Assessment and Plan (1) Chest pain: Code(s): R07.9 - Chest pain, unspecified Status: Acute Assessment and Plan: ADMIT TO IMU CHEST PAIN-FREE AT THE TIME OF MY VISIT EKG REVIEWED TROPONINS X3 MILDLY ELEVATED SUPPORTIVE CARE CARDIOLOGY CONSULT (2) Elevated troponin: Code(s): R79.89 - Other specified abnormal findings of blood chemistry Status: Acute Assessment and Plan: CONTINUE TO MONITOR (3) PAF (paroxysmal atrial fibrillation): Code(s): I48.0 - Paroxysmal atrial fibrillation Status: Acute Assessment and Plan: ANTICOAGULATED (4) CAD (coronary artery disease), autologous vein bypass graft: Code(s): I25.810 - Atherosclerosis of coronary artery bypass graft(s) without angina pectoris Status: Acute Assessment and Plan: CONTINUE HOME MEDS (5) Rheumatoid arthritis: Qualifiers: Rheumatoid arthritis location: unspecified site Rheumatoid factor presence: unspecified presence Qualified Code(s): M06.9 - Rheumatoid arthritis, unspecified Code(s): M06.9 - Rheumatoid arthritis, unspecified Status: Acute Assessment and Plan: CONTINUE HOME MEDS Subjective Date/time seen: 07/11/23 13:17 Interval history: Patient denies new complaints. No chest pain this morning. Exam Narrative: PATIENT IS LAYING IN BED Const: General: comfortable, no acute distress, well developed, alert, awake and average body habitus Nutritional Appearance: average body habitus Orientation/consciousness: patient oriented x3 Other: WELL-APPEARING PATIENT RE-PRESENTED STATED AGE HENMT: Head: normal to inspection, normocephalic and atraumatic Ears: hearing grossly normal bilaterally Face/Nose/Sinus: normal facial exam Face and sinus: normal facial exam Eyes: General: appearance normal, both eyes and all related structures Pupils: Equal, round and reactive pupils present EOM: EOMs intact bilaterally Neck: Neck: full ROM, no lymphadenopathy and no JVD Thyroid: thyroid normal Lymphatic: no lymphadenopathy noted Chest: Other: OLD MID STERNOTOMY SCAR Resp: Effort & Inspection: normal respiratory effort and able to speak in complete sentences Auscultation: clear to auscultation bilaterally Cardio: Jugular venous distension: no JVD Rate: regular rate Rhythm: regular rhythm Heart sounds: S1 normal heart sound present and S2 normal heart sound present : General: Yes deferred Skin: Rashes: no rashes Wounds: no wounds Neuro: General: patient oriented x3 and CN's II-XI intact bilaterally Cranial nerves: Yes CN's II-XII intact bilaterally and Yes Equal, round and reactive pupils present Cognition (Neuro): normal cognition Speech: normal speech Gait exam (Neuro): Normal gait present Motor exam (neuro): 5/5 motor strength present throughout Sensory Exam: No Sensory deficit (Neuro) Extrem: General: normal to inspection, full ROM, no joint enlargement and no pedal edema Objective Data Vital Signs Vital Signs: Vital Signs - 24 hr 07/10/23 21:18 07/10/23 21:42 07/10/23 23:50 Temperature 97.9 F 96.6 F L Pulse Rate 82 76 Respiratory Rate 16 16 Blood Pressure 142/55 H 146/66 H Pulse Oximetry 98 99 98 Oxygen Delivery Room Air Room Air 07/11/23 00:00 07/11/23 02:00 07/11/23 03:51 Temperature 97.0 F L Pulse Rate 66 69 80 Respiratory Rate 18 Blood Pressure 146/55 H Pulse Oximetry 98 Oxygen Delivery 07/11/23 04:00 07/11/23 06:00 07/11/23 08:49 Temperature 97.4 F L Pulse Rate 68 72 74 Respiratory Rate 18 Blood Pressure 141/47 H Pulse Oximetry 95 Oxygen Delivery 07/11/23 08:00 07/11/23 08:00 07/11/23 10:00 Temperature Pulse Rate 70 70 Respiratory Rate Blood Pressure Pulse Oximetry Oxygen Delivery Room Air 07/11/23 12:00 Temperature 97.5 F L Pulse Rate 69 Respiratory Rate 20 Blood Pressure 142/50 H Pulse Oximetry 97 Oxygen Delive
[2023-07-11 19:17] LABS: Partial Thromboplastin Time 51.1 SECONDS (22.3-36.8)
[2023-07-12] VITALS (15 sets, daily range): BP systolic 111–160; BP diastolic 44–66; PULSE 61–81; RESP 16–18; TEMP 36.2–36.8; O2SAT 97–98
[2023-07-12] MEDS: NITROGLYCERIN OINTMENT 1 INCH DOSE TRANSDERM ×5 (00:10→23:18)
[2023-07-12] MEDS: HEPARIN SOD/D5W 100 UNITS/ML 25,000 UNITS/250 ML BAG 14 UNITS IV CONT (00:11)
[2023-07-12 02:17] LABS: Partial Thromboplastin Time > 200.0 SECONDS (22.3-36.8)
[2023-07-12 04:14] LABS: Troponin I 0.068 ng/mL (0.000-0.034)
[2023-07-12 06:48] LABS: Hematocrit 30.5 % (42.0-52.0); Hemoglobin 9.1 g/dL (14.0-18.0); Mean Corpuscular HGB Conc 29.8 g/dl (32-36); Mean Corpuscular Hemoglobin 25.2 pg (26-34); Mean Corpuscular Volume 84.5 fl (80-100); Mean Platelet Volume 10.3 fl (7.4-10.4); Platelet Count Result 300 k/mm3 (150-375); Red Blood Count 3.61 M/mm3 (4.6-6.20); Red Cell Distribution Width 18.8 % (11.5-14.5)
--- NOTE | 2023-07-12 07:49 | PM.PNCARD ---
Progress Note: A&P Assessment and Plan (1) Chest pain: Code(s): R07.9 - Chest pain, unspecified Status: Acute Assessment and Plan: Probably related to underlying CAD given history of 8 stents over 30 years ago. EKG shows borderline ST abnormality. Troponin peaked at .089. Discuss with patient and patient's daughter and family about risks/benefits/alternative to LHC and they want to discuss it further amongst themselves. They will let us know if they want LHC vs medical therapy. His last dose of Eliquis was yesterday morning. On heparin drip, Plavix, rosuvastatin, Toprol, Lisinopril, Imdur. Will continue heparin drip for 24 hours unless goes for LHC today. It sounds like patient and patient's daughter have decided on LHC, but has some reservations about doing it here. Will consult HCG as they want it done at [facility], and this may get denied as we are capable of doing at least diagnostic cath here. (2) Elevated troponin: Code(s): R79.89 - Other specified abnormal findings of blood chemistry Status: Acute (3) CAD (coronary artery disease): Qualifiers: Coronary Disease-Associated Artery/Lesion type: unspecified vessel or lesion type [place] vs. transplanted heart: [place] heart Associated angina: without angina Qualified Code(s): I25.10 - Atherosclerotic heart disease of [place] coronary artery without angina pectoris Code(s): I25.10 - Atherosclerotic heart disease of [place] coronary artery without angina pectoris Status: Acute (4) HLD (hyperlipidemia): Qualifiers: Hyperlipidemia type: unspecified Qualified Code(s): E78.5 - Hyperlipidemia, unspecified Code(s): E78.5 - Hyperlipidemia, unspecified Status: Acute Assessment and Plan: On rosuvastatin. (5) PAF (paroxysmal atrial fibrillation): Code(s): I48.0 - Paroxysmal atrial fibrillation Status: Acute Assessment and Plan: In sinus rhythm. On Eliquis. (6) HTN (hypertension) with goal to be determined: Code(s): I10 - Essential (primary) hypertension Status: Acute Assessment and Plan: Stable. Subjective Date/time seen: 07/12/23 07:49 Interval history: No current chest pain as it is intermittent. No sob. Exam Const: General: cooperative, healthy appearing and comfortable Orientation/consciousness: oriented to person, oriented to place and oriented to time Resp: Auscultation: clear to auscultation bilaterally, no crackles, no rales, no rhonchi and no wheezes Cardio: Rate: regular rate Rhythm: regular rhythm Heart sounds: no murmurs Peripheral pulses: posterior tibial pulses present Neuro: General: oriented to person, oriented to place and oriented to time Extrem: Right lower extremity: no edema Left lower extremity: no edema Objective Data Vital Signs Vital Signs: Vital Signs - 24 hr 07/11/23 08:49 07/11/23 08:00 07/11/23 08:00 Temperature 97.4 F L Pulse Rate 74 70 Respiratory Rate 18 Blood Pressure 141/47 H Pulse Oximetry 95 Oxygen Delivery Room Air 07/11/23 10:00 07/11/23 12:00 07/11/23 12:00 Temperature 97.5 F L Pulse Rate 70 69 Respiratory Rate 20 Blood Pressure 142/50 H Pulse Oximetry 97 Oxygen Delivery Room Air 07/11/23 12:00 07/11/23 14:00 07/11/23 15:37 Temperature 97.3 F L Pulse Rate 76 72 70 Respiratory Rate 20 Blood Pressure 125/49 L Pulse Oximetry 99 Oxygen Delivery 07/11/23 16:00 07/11/23 16:00 07/11/23 18:00 Temperature Pulse Rate 67 78 Respiratory Rate Blood Pressure Pulse Oximetry Oxygen Delivery Room Air 07/11/23 19:34 07/11/23 20:00 07/12/23 00:00 Temperature 98.1 F 98.1 F Pulse Rate 77 79 80 Respiratory Rate 16 18 Blood Pressure 137/45 L 146/66 H Pulse Oximetry 97 97 Oxygen Delivery 07/11/23 22:00 07/12/23 02:00 07/12/23 00:00 Temperature Pulse Rate 76 62 81 Respiratory Rate Blood Pressure Pulse Oxime
[2023-07-12] MEDS: ROSUVASTATIN 20 MG TABLET 40 MG BY MOUTH (09:14)
[2023-07-12] MEDS: METOPROLOL SUCCINATE EXT REL 12.5 MG TABCR 37.5 MG PO (09:15)
[2023-07-12] MEDS: LEFLUNOMIDE 20 MG TABLET PO (09:16)
[2023-07-12] MEDS: CLOPIDOGREL BISULFATE 75 MG TABLET PO (09:16)
[2023-07-12] MEDS: ISOSORBIDE MONONITRATE 60 MG TAB.ER.24H PO (09:17)
[2023-07-12] MEDS: amLODIPine BESYLATE 5 MG TABLET PO (09:17)
[2023-07-12] MEDS: CHOLECALCIFEROL 1,000 UNITS TABLET 2000 UNITS PO (09:17)
[2023-07-12] MEDS: lisinopriL 20 MG TABLET PO (09:18)
[2023-07-12] MEDS: CALCIUM CARBONATE (TUMS) 500 MG (200 MG ELEMENTAL) PO (09:19)
--- NOTE | 2023-07-12 09:29 | PHAR ---
The patient's home med of Tofacitinib 5mg has been verified.
[2023-07-12 10:03] LABS: Partial Thromboplastin Time 74.8 SECONDS (22.3-36.8)
--- NOTE | 2023-07-12 12:45 | PM.CNCAR ---
Assessment and Plan Assessment and plan (1) Unstable angina: Code(s): I20.0 - Unstable angina Status: Acute Assessment and Plan: Patient with a long history of coronary disease, admitted again with chest pain. Had non-STEMI he is in May and also when hospitalized at the [facility] in [facility]. He has failed medical therapy. I agree with Dr. Fraser, cardiac catheterization is indicated. However, since he has multiple stents placed remotely, it is likely that he has significant InStent restenoses and will require a higher level of care with transfer to another hospital, that would have equipment that we do not have available at [facility] to address where I expect to see, which is chronic occlusions an InStent restenoses. Long discussion with the patient and his daughter regarding coronary disease, cardiac catheterizations options for therapy, approach, risks, availability of Cardizem thoracic back up, particularly in view of the anemia etc.. Some of these questions could not be answered w/o actually knowing the pt's coronary anatomy but I answered them as best I could to her satisfaction. I have offered to facilitate care with transfer to [facility] and cardiac catheterization/PCI, hopefully, tomorrow. However after some discussion with the patient's daughter she would like our team to reach out to [facility] to see if they have any beds available and transfer the patient there. If no beds are available, then we can explore options for transfer to [facility]. Discussed with Dr. Velazco and the patient's nurse. Continue heparin etc.. (2) CAD (coronary artery disease): Qualifiers: Coronary Disease-Associated Artery/Lesion type: unspecified vessel or lesion type [place] vs. transplanted heart: [place] heart Associated angina: without angina Qualified Code(s): I25.10 - Atherosclerotic heart disease of [place] coronary artery without angina pectoris Code(s): I25.10 - Atherosclerotic heart disease of [place] coronary artery without angina pectoris Status: Acute Assessment and Plan: History of coronary disease and apparently 8 stents placed at [facility] in 1999. Patient has done well until recently. Continue aspirin, heparin, statin therapy, nitrates and beta-blockers (3) History of thoracotomy: Code(s): Z98.890 - Other specified postprocedural states Status: Acute Assessment and Plan: Emergency thoracotomy at the time of his previous cardiac intervention. No evidence of bypass surgery. I can find no records. I wonder if the patient may have had a perforation requiring emergent repair? (4) CKD (chronic kidney disease) stage 3, GFR 30-59 ml/min: Code(s): N18.30 - Chronic kidney disease, stage 3 unspecified Status: Acute Assessment and Plan: Recommend hydration prior to cardiac catheterization (5) Chronic anemia: Code(s): D64.9 - Anemia, unspecified Status: Acute Assessment and Plan: Chronic anemia, stable. No clinical bleeding. History of Present Illness History of Present Illness Consult date/time: 07/12/23 12:45 Reason For Visit: Chest Pain Elevated Troponin Narrative: Jose Maria Baker is an 83 y.o. male whom I was asked to see at the request of Dr. Fraser for coronary disease, chest pain and possible need for cardiac catheterization in consultation. He has a history of CAD with 8 stents placed about 30 years ago at [facility] Apparently during the procedure the pt had cardiac arrest, and emergency thoracotomy was performed to repair heart muscle in 1999. .? PAF in November 2019, dyslipidemia, hypertension, stroke, RA. The patient was hospitalized and [facility] 06/10/2023 for non-STEMI in the setting of COVID pneumonia. His troponins increased to 0.198. He was started on heparin drip. He did well and was discharged. He then had chest pain and was
[2023-07-12 13:21] LABS: Anion Gap 5 mmol/L (8-16); Blood Urea Nitrogen 32 mg/dL (9-20); Calcium 8.4 mg/dL (8.4-10.2); Carbon Dioxide 23 mmol/L (22-30); Chloride 108 mmol/L (98-107); Estimated CRCL calculation 31 ml/min; Estimated Glomerular Filt Rate 48; Glucose 91 mg/dL (65-110); Potassium 3.9 mmol/L (3.4-5.0); Sodium 136 mmol/L (137-145)
--- NOTE | 2023-07-12 16:11 | PM.TDS ---
Transfer Discharge Sum: Prov Provider Date of admission: 07/10/23 22:56 Primary care physician: Nestor Dangelo DO Admitting clinician: Hemant Alexander MD Consults: 07/10/23 22:59 Consult to Physician Routine Comment: Spoke with Zahraa Aleman and notified her of consult Consulting Provider: Magy Edgar Reason for consultation: Chest pain, elevated troponin history of CAD Has provider been notified: Yes 07/11/23 Consult to Physician Routine Comment: Consulting Provider: Brandon Fraser Reason for consultation: Chest pain, elevated troponin Has provider been notified: Yes DS: Admitting Diagnosis Discharge Date 07/12/23 Admitting Diagnosis chest pain Transfer Discharge Sum: Med Medications Active and Home Medications: Home Medications alendronate 70 mg tablet 70 mg PO WEEKLY 12/08/19 [History Confirmed 07/11/23] amlodipine 5 mg tablet 5 mg PO DAILY 12/08/19 [History Confirmed 07/11/23] cholecalciferol (vitamin D3) 50 mcg (2,000 unit) chewable tablet 2,000 unit PO DAILY 12/08/19 [History Confirmed 07/11/23] leflunomide 20 mg tablet 20 mg PO DAILY 12/08/19 [History Confirmed 07/11/23] tofacitinib 5 mg tablet 5 mg PO DAILY 12/08/19 [History Confirmed 07/11/23] apixaban 5 mg tablet (Eliquis) 5 mg PO Q12HR #60 tabs 12/09/19 [Rx Confirmed 07/11/23] clopidogrel 75 mg tablet (Plavix) 75 mg PO DAILY #30 tabs 01/29/20 [Rx Confirmed 07/11/23] calcium carbonate 500 mg calcium (1,250 mg) chewable tablet (Calcium 500) 500 mg PO DAILY 12/06/22 [History Confirmed 07/11/23] lisinopril 20 mg tablet 20 mg PO DAILY 12/06/22 [History Confirmed 07/11/23] nitroglycerin 0.4 mg sublingual tablet 0.4 mg sublingual Q5M PRN Chest Pain 12/06/22 [History Confirmed 07/11/23] isosorbide mononitrate 30 mg tablet,extended release 24 hr 30 mg PO QAM #30 tabs 06/17/23 [Rx Confirmed 07/11/23] empagliflozin 10 mg tablet 10 mg PO DAILY 07/10/23 [History Confirmed 07/11/23] metoprolol succinate 25 mg tablet,extended release 24 hr (Toprol XL) 37.5 mg PO QAM 07/11/23 [History Confirmed 07/11/23] rosuvastatin 40 mg BYMOUTH DAILY 07/11/23 [History Confirmed 07/11/23] Active Medications Amlodipine Besylate (Amlodipine Besylate 5 Mg Tablet) 5 mg PO DAILY [facility] Last Admin: 07/12/23 09:17 Dose: 5 mg Apixaban (Apixaban 5 Mg Tablet) 5 mg PO Q12HR [facility] Calcium Carbonate (Calcium Carbonate (Tums) 500 Mg (200 Mg Elemental)) 500 mg PO DAILY [facility] Last Admin: 07/12/23 09:19 Dose: 500 mg Clopidogrel Bisulfate (Clopidogrel Bisulfate 75 Mg Tablet) 75 mg PO DAILY [facility] Last Admin: 07/12/23 09:16 Dose: 75 mg Heparin Sodium (Porcine) (Heparin Sodium 5,000 Units/Ml Vial) 4,000 units IV PUSH PRN PRN PRN Reason: aPTT less than 55 seconds Last Admin: 07/11/23 19:36 Dose: 4,000 units Heparin Sodium (Porcine) (Heparin Sodium 5,000 Units/Ml Vial) 2,500 units IV PUSH PRN PRN PRN Reason: aPTT 55 - 70 seconds Home Med (Home Med Tofacitinib 5 Mg Tablet) 1 each PO DAILY [facility] Stop: 08/11/23 08:59 Heparin Sodium/Dextrose (Heparin Sodium/D5w 100 Units/Ml) 25,000 units in 250 mls @ 12 mls/hr IV CONT .[id number] [facility]; Protocol Last Titration: 07/12/23 10:20 Dose: 1,200 units/hr, 12 mls/hr Isosorbide Mononitrate (Isosorbide Mononitrate 60 Mg Tab.Er.24h) 60 mg PO [facility] Last Admin: 07/12/23 09:17 Dose: 60 mg Leflunomide (Leflunomide 20 Mg Tablet) 20 mg PO DAILY [facility] Last Admin: 07/12/23 09:16 Dose: 20 mg Lisinopril (Lisinopril 20 Mg Tablet) 20 mg PO DAILY [facility] Last Admin: 07/12/23 09:18 Dose: 20 mg Metoprolol Succinate (Metoprolol Succinate Ext Rel 12.5 Mg Tabcr) 37.5 mg PO QAM [facility] Last Admin: 07/12/23 09:15 Dose: 37.5 mg Nitroglycerin (Nitroglycerin Ointment 1 Inch Dose) 1 inch TRANSDERM Q6HR [facility] Last Admin: 07/12/23 11:45 Dose: 1 inch Nitroglycerin (Nitroglycerin Sl 0.4 Mg Tablet) 0.4 mg SUBLINGUAL Q5M PRN PRN Reason: Chest Pain Rosuvastatin Calcium (Rosuvastatin 20 Mg Tablet) 40 mg BY MOUTH DAILY [facility] Stop: 08/10/23 08:59 L
[2023-07-12 16:32] LABS: Partial Thromboplastin Time 82.8 SECONDS (22.3-36.8)
--- NOTE | 2023-07-12 17:19 | PC.NURSE ---
On 07/12/23, the student, Chelsea [facility], provided care and completed [facility] documentation on this patient. I have reviewed the student's documentation and agree with the findings.
[2023-07-12] MEDS: HEPARIN SOD/D5W 100 UNITS/ML 25,000 UNITS/250 ML BAG 12 UNITS IV CONT (23:18)
[2023-07-13] VITALS: BP 150/58; PULSE 66; PULSE 71; RESP 18; TEMP 36.7; O2SAT 99
[2023-07-13 02:00] VITALS: PULSE 63
--- NOTE | 2023-07-13 02:47 | PC.NURSE ---
Patient leaving with playground equipment erector en route to [facility] for PCI. Belongings returned to patient and family including home meds. Patient educated on expectations and safety. Report given to [facility] crew.
== END 2023-07-13 02:40 | disposition short-term general hospital (02) | DRG 303 ==
LOC: ANHED 22:51 → ANHIMU 23:28 → ANH3MED 23:29 → ANHIMU 23:29
PROVIDERS: Chiropractor; General Practice; Internal Medicine Cardiovascular Disease; Admitting Provider Internal Medicine; Emergency Provider Emergency Medicine; PCP Family Medicine; Visit Provider Internal Medicine
DX: I25.110 Atherosclerotic heart disease of native coronary artery with unstable angina pectoris (principal); T82.855A Stenosis of coronary artery stent, initial encounter; I25.2 Old myocardial infarction; Z95.5 Presence of coronary angioplasty implant and graft; D63.1 Anemia in chronic kidney disease; E55.9 Vitamin D deficiency, unspecified; E78.5 Hyperlipidemia, unspecified; E11.22 Type 2 diabetes mellitus with diabetic chronic kidney disease; I12.9 Hypertensive chronic kidney disease with stage 1 through stage 4 chronic kidney disease, or unspecified chronic kidney disease; I48.0 Paroxysmal atrial fibrillation; M06.9 Rheumatoid arthritis, unspecified; R79.89 Other specified abnormal findings of blood chemistry; M19.90 Unspecified osteoarthritis, unspecified site; N18.30 Chronic kidney disease, stage 3 unspecified; Z95.1 Presence of aortocoronary bypass graft; Z88.0 Allergy status to penicillin; Z79.82 Long term (current) use of aspirin; Z79.01 Long term (current) use of anticoagulants; Z79.02 Long term (current) use of antithrombotics/antiplatelets; Z86.73 Personal history of transient ischemic attack (TIA), and cerebral infarction without residual deficits; Z86.16 Personal history of COVID-19; Z87.891 Personal history of nicotine dependence; Z79.84 Long term (current) use of oral hypoglycemic drugs
CPT/HCPCS: 36415; 71046; 80048; 80053; 83690; 84484; 85025; 85027; 85610; 85730; 93005; 96365; 96366; 99285; A9270; G0378; J1644

== ENCOUNTER 2023-08-15 10:23 | Inpatient (IN) | payer OTHER, SELFPAY ==
[2023-08-15] VITALS (103 sets, daily range): BP systolic 104–140; BP diastolic 45–76; PULSE 70–115; RESP 10–35; TEMP 36.4; O2SAT 90–100
--- NOTE | ~2023-08-15 | XR_ITS ---
XR chest 1V portable 08/15/2023 13:09 Indication: Shortness of breath Procedure: AP portable chest Comparison: Comparison to multiple prior studies sequentially, with oldest reviewed study dated 11/11. Findings: Status post median sternotomy for CABG. Cardiomegaly with mild interstitial edema. Small pl eural effusions. No acute osseous abnormality. Impression: 1: Cardiomegaly with interstitial edema. 2: Small pleural effusions. Reviewed, dictated and finalized at location L. S DISASSEMBLER Impression: 1: Cardiomegaly with interstitial edema. 2: Small pleural effusions.
--- NOTE | 2023-08-15 10:25 | ECG_ITS ---
Measurements Intervals [place] Rate: 87 P: 28 [place]: 128 QRS: 45 QRSD: 108 T: 168 QT: 401 QTc: 484 Interpretive Statements SINUS RHYTHM LOW QRS VOLTAGE IN LIMB LEADS CANNOT RULE OUT SEPTAL INFARCT, AGE INDETERMINATE ST-T WAVE ABNORMALITY IN ANTEROLAT/HIGH LAT LEADS- CONSIDER ISCHEMIA BASELINE ARTIFACT- AVL, V3-V5 ABNORMAL ECG COMPARED TO ECG 07/10/2023 21:14:56 NO SIGNIFICANT CHANGES Electronically Signed On 08-15-2023 10:32:23 BRUSH PAINTER by Brandon Fraser D.O.
[2023-08-15 10:57] LABS: Basophils Absolute Auto 0.1 K/mm3 (0.0-0.1); Basophils Percent Auto 0.6 % (0.2-1.2); Eosinophils Percent Auto 0.3 % (0-4.4); Hematocrit 27.3 % (42.0-52.0); Hemoglobin 8.2 g/dL (14.0-18.0); Immature Granulocyte Absolute 0.08 K/mm3 (0.00-0.031); Immature Granulocyte Percent A 0.7 % (0-0.5); Lymphocytes Absolute Auto 0.93 K/mm3 (0.9-3.2); Lymphocytes Percent Auto 8.3 % (18.3-44.2); Mean Corpuscular Volume 80.1 fl (80-100); Mean Platelet Volume 10.3 fl (7.4-10.4); Monocytes Absolute Auto 0.7 K/mm3 (0.1-0.6); Monocytes Percent Auto 6.6 % (2.6-8.5); Neutrophils Absolute Auto 9.3 K/mm3 (1.3-6.7); Neutrophils Percent Auto 83.5 % (45.5-73.1); Platelet Count Result 354 k/mm3 (150-375); Red Blood Count 3.41 M/mm3 (4.6-6.20); Red Cell Distribution Width 18.6 % (11.5-14.5); White Blood Count 11.2 K/mm3 (4.5-10.0)
[2023-08-15 11:12] LABS: Alanine Aminotransferase 37 U/L (6-50); Albumin Level 3.4 g/dL (3.5-5.1); Alkaline Phosphatase 121 U/L (38-126); Anion Gap 11 mmol/L (8-16); Aspartate Amino Transferase 52 U/L (17-59); Bilirubin,Total 0.6 mg/dL (0.2-1.3); Blood Urea Nitrogen 34 mg/dL (9-20); Calcium 8.5 mg/dL (8.4-10.2); Carbon Dioxide 21 mmol/L (22-30); Chloride 107 mmol/L (98-107); Estimated CRCL calculation 24 ml/min; Estimated Glomerular Filt Rate 34; Glucose 144 mg/dL (65-110); Potassium 4.4 mmol/L (3.4-5.0); Sodium 139 mmol/L (137-145)
[2023-08-15 11:27] LABS: Troponin I 0.413 ng/mL (0.000-0.034)
[2023-08-15 12:04] LABS: INR 1.3; Partial Thromboplastin Time 37.2 SECONDS (22.3-36.8); Prothrombin Time 17.4 Seconds (11.1-14.7)
--- NOTE | 2023-08-15 12:58 | ED.SOB ---
HPI - SOB/Dyspnea General Chief Complaint: Shortness of Breath/Dyspnea Stated Complaint: CP/SOB Time Seen by Provider: 08/15/23 12:43 History of Present Illness HPI Narrative: This 83-year-old white male presents with complaints of shortness of breath since 6:30 a.m. this morning. Patient had some chest pain for a period of time but the chest pain has resolved. The shortness of breath however has remained. Patient's oxygen saturation on EMS arrival was in the 80s it is up to 100% on 4 L nasal cannula. Patient has no history of COPD. Patient did have a cardiac stent placed several weeks ago. Patient states that he has had intermittent shortness of breath since the stent placement but it is much worse today. Related Data Home Medications Medication Instructions Recorded Confirmed alendronate 70 mg tablet 70 mg PO WEEKLY 12/08/19 07/31/23 amlodipine 5 mg tablet 5 mg PO DAILY 12/08/19 07/31/23 cholecalciferol (vitamin D3) 50 2,000 unit PO DAILY 12/08/19 07/31/23 mcg (2,000 unit) chewable tablet leflunomide 20 mg tablet 20 mg PO DAILY 12/08/19 07/31/23 tofacitinib 5 mg tablet 5 mg PO DAILY 12/08/19 07/31/23 calcium carbonate 500 mg calcium 500 mg PO DAILY 12/06/22 07/31/23 (1,250 mg) chewable tablet (Calcium 500) nitroglycerin 0.4 mg sublingual 0.4 mg sublingual Q5M PRN Chest 12/06/22 07/31/23 tablet Pain empagliflozin 10 mg tablet 10 mg PO DAILY 07/10/23 07/31/23 metoprolol succinate 25 mg 37.5 mg PO QAM 07/11/23 07/31/23 tablet,extended release 24 hr (Toprol XL) rosuvastatin 40 mg BYMOUTH DAILY 07/11/23 07/31/23 aspirin 81 mg tablet,delayed 81 mg PO DAILY 07/31/23 07/31/23 release (Adult Low Dose Aspirin) ranolazine 500 mg tablet,extended 500 mg PO Q12H 07/31/23 07/31/23 release,12 hr Allergies Allergy/AdvReac Type Severity Reaction Status Date / Time atorvastatin Allergy Unknown Verified 08/15/23 10:53 hydroxychloroquine Allergy Unknown Verified 08/15/23 10:53 peanut Allergy Unknown Verified 08/15/23 10:53 Penicillins Allergy Unknown Verified 08/15/23 10:53 Sulfa (Sulfonamide Allergy Unknown Verified 08/15/23 10:53 Antibiotics) Review of Systems Review of Systems: All systems reviewed & are unremarkable except as noted in HPI and below PMFSH Past Medical History Medical History CAD (coronary artery disease) Carotid stenosis Chronic anemia CKD (chronic kidney disease) stage 3, GFR 30-59 ml/min Dry skin High cholesterol History of stroke Hypertension Inflammatory and immune myopathies Osteoarthritis Rheumatoid arthritis Vitamin D deficiency Surgical History Surgical History History of thoracotomy Hx of CABG pt and daughter said he had a DC during angiogram and had sternotomy and had 8 stents Family History Family History Father Acute myocardial infarction Hypertension Mother Acute myocardial infarction Social History Social History Social History: Patient has not smoked or drink alcohol since 1999. 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 He designates his daughter Yoko as his surrogate decision maker. He would like to be a full code. Smoking status: Never smoker Tobacco type: cigarettes Second hand tobacco smoke exposure: No Smoking end date: 01/27/02 Alcohol intake: never Substance use: never Substance use type: does not use Lack of Transportation: No Lack of Food: Never True Current Housing: I Have Housing Concerned About Future Housing: No Difficulty Paying Gas/Electric Bills: No Difficulty Paying for Meds: No Currently Unemployed: No Education: High School Diploma/GED Difficulty w/ Childcare or Family Care: No Gender identity (if verbalized by the patient): Male Spiritual care concerns: No Agree to blood products: Yes
[2023-08-15 13:26] LABS: NT Pro B Type Natriuretic Pept > 30000 pg/mL (19.9-100)
[2023-08-15] MEDS: FUROSEMIDE INJ 40 MG/4 ML VIAL IV PUSH (13:28)
[2023-08-15 14:26] LABS: Troponin I 0.484 ng/mL (0.000-0.034)
[2023-08-15 14:43] LABS: Influenza A QL RT-PCR Negative (Negative); Influenza B QL RT-PCR Negative (Negative); RSV RNA, RT-PCR Negative (Negative); SARS-CoV-2 RNA PCR Negative (Negative)
[2023-08-15 17:13] LABS: Troponin I 0.553 ng/mL (0.000-0.034)
[2023-08-15 22:11] LABS: Troponin I 0.606 ng/mL (0.000-0.034)
--- NOTE | 2023-08-15 23:28 | PC.NURSE ---
care and report given to JANUSZ Chinchilla. all questions answered.
[2023-08-16] VITALS (20 sets, daily range): BP systolic 106–146; BP diastolic 42–64; PULSE 72–94; RESP 18–24; TEMP 36.1–36.6; O2SAT 91–100
--- NOTE | 2023-08-16 | ECHO_ITS ---
Patient Info Name: Jose Maria Baker Age: 83 years : 1940 Gender: Male Ht: 70 in Wt: 134 lbs BSA: 1.72 m2 HR: 77 bpm BP: 146 / 56 mmHg Heart Rhythm: Sinus Rhythm Technical Quality: Fair Exam Date: 08/16/2023 12:32 PM Exam Location: Echo Lab Patient Status: Inpatient Admit Date: 08/15/2023 Staff Ordering Physician: Brandon Fraser DO Experimental Aircraft Mechanic: Ashlyn Ambrose RDCS Attending Provider: Alexia Hampton DO Referring Physician: Evelio HURTADO; Exam Type: CA echo dop color flow w con Study Info Indications - elevated troponin, cp Complete two-dimensional, color flow and Doppler transthoracic echocardiogram is performed with contrast to opacify the left ventricle and to improve the deliniation of the left ventricle endocardial borders. Contrast/Agitated Saline Contrast/Ag. Saline: Definity Amount: 2.00 ml Administered By: Ashlyn Ambrose RDCS Existing IV Access: Yes IV Access Condition: patent with no signs of infiltration Summary 1. Definity contrast administered improved wall motion interpretation. 2. Left ventricular chamber dimension is moderately enlarged. 3. Left ventricular systolic function is moderately reduced, estimated at 35-40%. 4. Basal to apical posterior wall and lateral wall are severely hypokinetic to akinetic. 5. The left ventricular diastolic function is grade III diastolic dysfunction. 6. E/e' 27 is elevated. 7. Left atrial chamber dimension is mildly enlarged. 8. Right atrial chamber dimension is mildly enlarged. 9. There is moderate aortic valve sclerosis. 10. There is mild aortic valve stenosis with a peak velocity of 237.74 cm/s, mean gradient of 9 mmHg and visual estimation. 11. There is trace aortic valve regurgitation. 12. The mitral valve has not well visualized and severely calcified annulus. 13. There is mild mitral valve stenosis with valve area of 1.5 cm2 and mean gradient of 2 mmHg. 14. There is mild tricuspid valve regurgitation. 15. Moderate pulmonary hypertension, estimated pulmonary arterial systolic pressure is 52 mmHg. 16. There is trace pulmonic regurgitation. Left Ventricle E/e' 27 is elevated. Basal to apical posterior wall and lateral wall are severely hypokinetic to akinetic. Definity contrast administered improved wall motion interpretation. Left ventricular chamber dimension is moderately enlarged. Left ventricular systolic function is moderately reduced, estimated at 35-40%. The left ventricular diastolic function is grade III diastolic dysfunction. Right Ventricle Right ventricular systolic function is normal and with normal TAPSE 1.9 cm. Right ventricular chamber dimension is normal. Left Atria Left atrial chamber dimension is mildly enlarged. Right Atria Right atrial chamber dimension is mildly enlarged. Aortic Valve There is mild aortic valve stenosis with a peak velocity of 237.74 cm/s, mean gradient of 9 mmHg and visual estimation. The aortic valve is probable trileaflet. There is moderate aortic valve sclerosis. There is trace aortic valve regurgitation. Pulmonic Valve There is trace pulmonic regurgitation. Mitral Valve The mitral valve has not well visualized and severely calcified annulus. There is mild mitral valve stenosis with valve area of 1.5 cm2 and mean gradient of 2 mmHg. There is no mitral valve regurgitation. Tricuspid Valve There is mild tricuspid valve regurgitation. Moderate pulmonary hypertension, estimated pulmonary arterial systolic pressure is 52 mmHg. Pericardium/Pleural There is no pericardial effusion.
--- NOTE | 2023-08-16 00:25 | PM.IMHP ---
H&P: HPI History of Present Illness Date/Time: 08/15/23 18:30 Chief Complaint: Shortness of breath. Narrative: This is a very pleasant 83-year-old male with history of coronary artery disease and multiple stents (the most recent being done just about 1 month ago at [facility]), cardiac arrest approximately 30 years ago, status post open heart surgery performed to repair heart muscle in 1999 at [facility], paroxysmal atrial fibrillation, hypertension, dyslipidemia, stroke, and rheumatoid arthritis who presented to the emergency department via EMS for evaluation of shortness of breath. He was wakened from sleep at about 06:30 with shortness of breath and mild chest pressure. He took a nitroglycerin which helped but he became nauseated and had 1 episode of emesis shortly thereafter. Over the course of the morning he remained short of breath and he felt it would be best come in for evaluation. He has not had any recurrent chest pain. He has not noticed any significant lower extremity edema. He endorses mild orthopnea. No sensations of racing heart or pleuritic pain. On EMS arrival his SpO2 was reportedly in the 80s and he was brought in on 4 L nasal cannula. Preliminary workup in the ED was consistent with congestive heart failure with pulmonary edema. Troponins have also been elevated and he has new T-wave changes on his EKG. Currently he is not having any chest pain and shortness of breath seems to be a bit improved. He states compliance with his home medications and has not missed any doses recently. He is being admitted in this setting for close monitoring and Cardiology consultation. Review of Systems Review of Systems: Twelve systems were reviewed and are negative except for as per HPI. [facility] Past Medical History Medical History (Updated 08/16/23 @ 00:33 by Erica Pandya PA-C) Carotid stenosis Chronic anemia Chronic kidney disease, stage 3 Coronary artery disease Dyslipidemia History of stroke Hypertension Inflammatory and immune myopathies Osteoarthritis Paroxysmal atrial fibrillation Rheumatoid arthritis Vitamin D deficiency Surgical History Surgical History History of thoracotomy Hx of CABG pt and daughter said he had a MA during angiogram and had sternotomy and had 8 stents Family History Family History Father Acute myocardial infarction Hypertension Mother Acute myocardial infarction Social History Social History (Updated 08/16/23 @ 00:31 by Erica Pandya PA-C) Social History: Patient has not smoked or drink alcohol since 1999. 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 He designates his daughter Yoko as his surrogate decision maker. He would like to be a full code. Smoking status: Never smoker Tobacco type: cigarettes Second hand tobacco smoke exposure: No Smoking end date: 01/27/02 Alcohol intake: never Substance use: never Substance use type: does not use Lack of Transportation: No Lack of Food: Never True Current Housing: I Have Housing Concerned About Future Housing: No Difficulty Paying Gas/Electric Bills: No Difficulty Paying for Meds: No Currently Unemployed: No Education: High School Diploma/GED Difficulty w/ Childcare or Family Care: No Spiritual care concerns: No Agree to blood products: Yes Meds Home Medications and Allergies Home Medications Medication Instructions Recorded Confirmed Type alendronate 70 mg tablet 70 mg PO WEEKLY 12/08/19 07/31/23 History amlodipine 5 mg tablet 5 mg PO DAILY 12/08/19 07/31/23 History cholecalciferol (vitamin D3) 50 2,000 unit PO DAILY 12/08/19 07/31/23 History mcg (2,000 unit) chewable tablet leflunomide 20 mg tablet 20 mg PO DAILY 12/08/19 07/31/23 History tofacitinib 5 mg tablet 5 mg PO DAILY 12/08/19 07/31/23 History apixaban 5 mg tablet (Eliquis) 5 mg PO Q12HR #60 tabs 12/09/19 07/31/23 Rx
--- NOTE | 2023-08-16 02:38 | ADMGEN ---
This patient, Jose Maria Baker, was admitted to IMU Room 201-01. Patient/family oriented to hospital policies and general routines including ID bracelet, bed and alarms, visiting hours, pain management, procedures, bathroom and other care routines, personal items, smoking policy, room service/diet, and visiting hours. Information on how to activate the Rapid Response Team has been discussed. Patient/Family are encouraged to report perceived risks to care and to ask questions if they do not understand what they are told or what they should do.
[2023-08-16 05:08] LABS: Hematocrit 28.9 % (42.0-52.0); Hemoglobin 8.6 g/dL (14.0-18.0); Mean Corpuscular HGB Conc 29.8 g/dl (32-36); Mean Corpuscular Hemoglobin 24.1 pg (26-34); Mean Platelet Volume 10.6 fl (7.4-10.4); Platelet Count Result 376 k/mm3 (150-375); Red Blood Count 3.57 M/mm3 (4.6-6.20); Red Cell Distribution Width 18.7 % (11.5-14.5); White Blood Count 12.2 K/mm3 (4.5-10.0)
[2023-08-16 05:22] LABS: Anion Gap 10 mmol/L (8-16); Blood Urea Nitrogen 38 mg/dL (9-20); Calcium 8.2 mg/dL (8.4-10.2); Carbon Dioxide 22 mmol/L (22-30); Chloride 106 mmol/L (98-107); Estimated CRCL calculation 24 ml/min; Estimated Glomerular Filt Rate 36; Glucose 100 mg/dL (65-110); Potassium 3.4 mmol/L (3.4-5.0); Sodium 138 mmol/L (137-145)
[2023-08-16] MEDS: ASPIRIN 81 MG ENTERIC TABLET PO (08:59)
[2023-08-16] MEDS: FUROSEMIDE INJ 40 MG/4 ML VIAL 20 MG IV PUSH ×2 (08:59→16:56)
[2023-08-16] MEDS: CLOPIDOGREL BISULFATE 75 MG TABLET PO (08:59)
[2023-08-16] MEDS: METOPROLOL SUCCINATE EXT REL 25 MG, METOPROLOL SUCCINATE EXT REL 50 MG 75 MG PO (09:00)
--- NOTE | 2023-08-16 11:50 | PM.CNCAR ---
Assessment and Plan Assessment and plan (1) Acute exacerbation of congestive heart failure: Code(s): I50.9 - Heart failure, unspecified Status: Acute Assessment and Plan: Unknown type of CHF. He is being diuresed with Lasix 20 mg IV BID. 06/13/23 Echo: EF 55-60%, mild LVH, grade I diastolic dysfunction, mild (VERONICA 1.59 cm2), trace AI, mod MAC, trace TR. Obtain echo. (2) Elevated troponin: Code(s): R79.89 - Other specified abnormal findings of blood chemistry Status: Acute Assessment and Plan: Troponin at 0.6 trending up. Could be due to NSTEMI or CHF in setting of CKD and anemia. Trend to peak. Start heparin drip. (3) Paroxysmal atrial fibrillation: Code(s): I48.0 - Paroxysmal atrial fibrillation Status: Acute Assessment and Plan: On Eliquis. (4) HLD (hyperlipidemia): Qualifiers: Hyperlipidemia type: unspecified Qualified Code(s): E78.5 - Hyperlipidemia, unspecified Code(s): E78.5 - Hyperlipidemia, unspecified Status: Acute Assessment and Plan: On Rosuvastatin. (5) HTN (hypertension) with goal to be determined: Code(s): I10 - Essential (primary) hypertension Status: Acute Assessment and Plan: On Imdur and Metoprolol. (6) Coronary artery disease: Code(s): I25.10 - Atherosclerotic heart disease of lummi coronary artery without angina pectoris Status: Acute Assessment and Plan: On dual antiplatelets as he had PCI recently at [facility] with Dr. Tinajero. Obtain [facility] report from [facility]. (7) PAF (paroxysmal atrial fibrillation): Code(s): I48.0 - Paroxysmal atrial fibrillation Status: Acute Assessment and Plan: In Sinus rhythm. On Eliquis and Metoprolol. 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 He has a history of CAD with 8 stents placed about 30 years ago and at the time had cardiac arrest, open heart was performed to repair heart muscle in 1999 at [facility],? PAF in November 2019, dyslipidemia, hypertension, stroke, RA. His daughter is at bedside. She is upset stating they have been in ER since yesterday morning, and he has not had a meal waiting to be seen by cardiology. I was just called 2 hours ago for consult. Reports he was woken up with sob and some chest pressure. Currently has some sob but no longer has chest pain. Admits to orthopnea. CXR shows pulm edema. He has been diuresed and breathing has improved. He is limited at walking short distance down the hallway due to feet pain from RA primarily.? Denies edema, palpitations. Review of Systems Review of Systems: All systems reviewed & are unremarkable except as noted in HPI and below Constitutional: Constitutional: Reports as per HPI, Denies chills, Reports fatigue and Denies fever(s) Cardiovascular: Cardiovascular: Reports as per HPI, Reports chest pain, Denies irregular heart rhythm and Denies leg edema Respiratory: Respiratory: Reports as per HPI and Reports dyspnea Gastrointestinal: Gastrointestinal: Reports as per HPI and Denies abdominal pain Genitourinary: Genitourinary: Reports as per HPI and Denies dysuria Musculoskeletal: Musculoskeletal: Reports as per HPI Neurologic: Reports as per HPI, Denies dizziness and Denies syncope [facility] Past Medical History Medical History (Updated 08/16/23 @ 00:33 by Erica Pandya PA-C) Carotid stenosis Chronic anemia Chronic kidney disease, stage 3 Coronary artery disease Dyslipidemia History of stroke Hypertension Inflammatory and immune myopathies Osteoarthritis Paroxysmal atrial fibrillation Rheumatoid arthritis Vitamin D deficiency Surgical History Surgical History (Reviewed 08/16/23 @ 00:30 by Erica Acharya
[2023-08-16 12:19] LABS: Basophils Absolute Auto 0.1 K/mm3 (0.0-0.1); Basophils Percent Auto 0.7 % (0.2-1.2); Eosinophils Absolute Auto 0.1 K/mm3 (0-0.3); Eosinophils Percent Auto 0.4 % (0-4.4); Hematocrit 31.3 % (42.0-52.0); Hemoglobin 9.2 g/dL (14.0-18.0); Immature Granulocyte Absolute 0.07 K/mm3 (0.00-0.031); Immature Granulocyte Percent A 0.5 % (0-0.5); Lymphocytes Absolute Auto 0.87 K/mm3 (0.9-3.2); Lymphocytes Percent Auto 6.2 % (18.3-44.2); Mean Corpuscular HGB Conc 29.4 g/dl (32-36); Mean Corpuscular Hemoglobin 23.9 pg (26-34); Mean Corpuscular Volume 81.3 fl (80-100); Mean Platelet Volume 10.1 fl (7.4-10.4); Monocytes Absolute Auto 0.8 K/mm3 (0.1-0.6); Neutrophils Absolute Auto 12.1 K/mm3 (1.3-6.7); Neutrophils Percent Auto 86.2 % (45.5-73.1); Platelet Count Result 395 k/mm3 (150-375); Red Blood Count 3.85 M/mm3 (4.6-6.20); Red Cell Distribution Width 18.6 % (11.5-14.5)
[2023-08-16 12:31] LABS: INR 1.3; Partial Thromboplastin Time 33.8 SECONDS (22.3-36.8); Prothrombin Time 17.2 Seconds (11.1-14.7)
[2023-08-16] MEDS: HEPARIN SOD/D5W 100 UNITS/ML 25,000 UNITS/250 ML BAG 7 UNITS IV CONT (12:34)
[2023-08-16 13:06] LABS: Anisocytosis 1+ (NORMAL); Hypochromasia 1+ (NORMAL); Platelet Estimate Adequate (Adequate); Schistocytes None Seen (NORMAL)
[2023-08-16] MEDS: PERFLUTREN LIPID MICROSPHERES 1.5 ML VIAL DILUTED TO 10 ML TOTAL VOLUME IV PUSH (13:10)
--- NOTE | 2023-08-16 14:00 | IVDEFINITY ---
Prior to administration of IV Definity the patient was educated on the risks and benefits of the imaging enhancing agent including potential adverse side effects. The patient verbalized understanding. Allergies were verified. No exclusion criteria were identified and at least one of the following inclusion criteria were met: 1) physician request, 2) patient technically difficult to image (per the [place] [employer]chocardi[employer] guidelines of two or more segments not discernable within the apical view), or 3) questionable left ventricular function. ?
--- NOTE | 2023-08-16 15:24 | PC.NURSE ---
Dr. Fraser on telephone discussing ECHO results with patient's daughter.
--- NOTE | 2023-08-16 16:05 | PM.TDS ---
Transfer Discharge Sum: Prov Provider Date of admission: 08/15/23 14:55 Primary care physician: Nestor Dangelo DO Admitting clinician: Alexia Hampton DO Consults: 08/16/23 Consult to Physician Routine Comment: Called office and notified them of consult Consulting Provider: Brandon Fraser manager call center/MD group to consult: cardiology Reason for consultation: NSTEMI, chf Has provider been notified: Yes DS: Admitting Diagnosis Discharge Date 08/16/2023 Admitting Diagnosis Shortness of breath. DS: Discharge Diagnosis Discharge Diagnosis (1) Acute exacerbation of congestive heart failure: Code(s): I50.9 - Heart failure, unspecified Status: Acute (2) Non-ST elevation myocardial infarction (NSTEMI): Code(s): I21.4 - Non-ST elevation (NSTEMI) myocardial infarction Status: Acute (3) Coronary artery disease: Code(s): I25.10 - Atherosclerotic heart disease of [place] coronary artery without angina pectoris Status: Acute (4) Paroxysmal atrial fibrillation: Code(s): I48.0 - Paroxysmal atrial fibrillation Status: Acute (5) Chronic kidney disease, stage 3: Code(s): N18.30 - Chronic kidney disease, stage 3 unspecified Status: Acute (6) Dyslipidemia: Code(s): E78.5 - Hyperlipidemia, unspecified Status: Acute Plan The patient presented to the emergency department for evaluation of shortness of breath which awakened him from sleep this morning as detailed in HPI. Labs, imaging, EKG, and all reports were personally reviewed. He also has some chest pressure which resolved with nitroglycerin. That has not returned. Preliminary workup is consistent with a CHF exacerbation (pleural effusions, pulmonary edema, elevated proBNP) and he will be diuresed with close monitoring of volume status, renal function, and electrolytes. Troponin is also elevated and he has new T-wave inversion though he is no longer having any chest discomfort. Troponins will be trended to peak. Cardiology was consulted by the ED physician and their input is appreciated. Continue clopidogrel, apixaban, metoprolol, ranolazine, and rosuvastatin. Pt seen cardiology md in the hospital as per cardiology md Echo today, 08/16/2023- shows new wall motion abnormalities with severely hypokinetic to akinetic basal to apical posterolateral segments. Discuss with patient's daughter about needing C and she wants him transferred to [facility] for procedure. Discuss with Dr. Tinajero who did the intervention last month who accepts patient as consult and have patient transferred to hospitalist at [facility]. Plan to transfer pt to [facility] for higher level of care and heart catheterization by his own criminal justice teacher. Transfer Discharge Sum: Med Medications Active and Home Medications: Home Medications alendronate 70 mg tablet 70 mg PO WEEKLY 12/08/19 [History Confirmed 08/16/23] cholecalciferol (vitamin D3) 50 mcg (2,000 unit) chewable tablet 2,000 unit PO DAILY 12/08/19 [History Confirmed 08/16/23] leflunomide 20 mg tablet 20 mg PO DAILY 12/08/19 [History Confirmed 08/16/23] tofacitinib 5 mg tablet 5 mg PO DAILY 12/08/19 [History Confirmed 08/16/23] clopidogrel 75 mg tablet (Plavix) 75 mg PO DAILY #30 tabs 01/29/20 [Rx Confirmed 08/16/23] calcium carbonate 500 mg calcium (1,250 mg) chewable tablet (Calcium 500) 500 mg PO DAILY 12/06/22 [History Confirmed 08/16/23] nitroglycerin 0.4 mg sublingual tablet 0.4 mg sublingual Q5M PRN Chest Pain 12/06/22 [History Confirmed 08/16/23] isosorbide mononitrate 30 mg tablet,extended release 24 hr 30 mg PO QAM #30 tabs 06/17/23 [Rx Confirmed 08/16/23] empagliflozin 10 mg tablet 25 mg PO DAILY 07/10/23 [History Confirmed 08/16/23] metoprolol succinate 25 mg tablet,extended release 24 hr (Toprol XL) 25 mg PO QAM 07/11/23 [History Confirmed 08/16/23] rosuvastatin 40 mg BYMOUTH DAILY 07/11/23 [History Confirmed 08/16/23] mirtazapine 7.5 mg tablet 7.5 mg PO DAILY #90 tabs
--- NOTE | 2023-08-16 16:07 | PC.NURSE ---
Patient to be transferred to [facility] per daughter request. Dr. Tinajero and Dr. Fraser agreed. Dr. Ch notified.
--- NOTE | 2023-08-16 16:52 | PC.NURSE ---
Updated [facility] with patient status, vitals and assessment.
[2023-08-16 18:26] LABS: Partial Thromboplastin Time 49.8 SECONDS (22.3-36.8)
[2023-08-16] MEDS: HEPARIN SODIUM 5,000 UNITS/ML VIAL 4000 UNITS IV PUSH (19:14)
[2023-08-16] MEDS: RANOLAZINE 500 MG TAB.ER.12H PO (20:47)
[2023-08-17] VITALS: PULSE 86; RESP 18; O2SAT 96
[2023-08-17 01:51] LABS: Partial Thromboplastin Time 144.7 SECONDS (22.3-36.8)
[2023-08-17 02:00] VITALS: PULSE 78
== END 2023-08-17 03:11 | disposition short-term general hospital (02) | DRG 281 ==
LOC: ANHED 14:41 → ANHIMU 15:36
PROVIDERS: Emergency Medicine; Internal Medicine Cardiovascular Disease; Physician Assistant; Admitting Provider Student in an Organized Health Care Education/Training Program; Emergency Provider Emergency Medicine; PCP Family Medicine; Visit Provider Family Medicine
DX: I21.4 Non-ST elevation (NSTEMI) myocardial infarction (principal); I13.0 Hypertensive heart and chronic kidney disease with heart failure and stage 1 through stage 4 chronic kidney disease, or unspecified chronic kidney disease; I50.9 Heart failure, unspecified; I25.10 Atherosclerotic heart disease of native coronary artery without angina pectoris; E55.9 Vitamin D deficiency, unspecified; I48.0 Paroxysmal atrial fibrillation; E78.5 Hyperlipidemia, unspecified; M06.9 Rheumatoid arthritis, unspecified; N18.30 Chronic kidney disease, stage 3 unspecified; R79.89 Other specified abnormal findings of blood chemistry; Z20.822 Contact with and (suspected) exposure to COVID-19; Z95.5 Presence of coronary angioplasty implant and graft; Z79.82 Long term (current) use of aspirin; Z79.02 Long term (current) use of antithrombotics/antiplatelets; Z86.73 Personal history of transient ischemic attack (TIA), and cerebral infarction without residual deficits; Z95.1 Presence of aortocoronary bypass graft; Z87.891 Personal history of nicotine dependence; Z79.01 Long term (current) use of anticoagulants
CPT/HCPCS: 36415; 71045; 80048; 80053; 83880; 84484; 85025; 85027; 85610; 85730; 87637; 93005; 96374; 99291; A9270; C8929; J1644; J1940; Q9957

== ENCOUNTER 2023-08-22 14:40 | Outpatient (NON) | payer OTHER, SELFPAY ==
[2023-08-22 15:30] LABS: Albumin Level 3.1 g/dL (3.5-5.1); Anion Gap 8 mmol/L (8-16); Blood Urea Nitrogen 60 mg/dL (9-20); Calcium 8.2 mg/dL (8.4-10.2); Carbon Dioxide 27 mmol/L (22-30); Chloride 101 mmol/L (98-107); Estimated Glomerular Filt Rate 29; Glucose 102 mg/dL (65-110); Phosphorus 4.3 mg/dL (2.5-4.5); Potassium 3.7 mmol/L (3.4-5.0); Sodium 136 mmol/L (137-145)
== END 2023-08-22 14:41 | disposition home or self-care (01) ==
LOC: HOME HLTH 14:48
PROVIDERS: PCP Family Medicine
DX: I25.110 Atherosclerotic heart disease of native coronary artery with unstable angina pectoris (principal); I13.0 Hypertensive heart and chronic kidney disease with heart failure and stage 1 through stage 4 chronic kidney disease, or unspecified chronic kidney disease; I50.9 Heart failure, unspecified
CPT/HCPCS: 80069

== ENCOUNTER 2023-08-28 10:08 | Inpatient (IN) | payer OTHER, SELFPAY ==
[2023-08-28] VITALS (52 sets, daily range): BP systolic 110–128; BP diastolic 42–81; PULSE 64–76; RESP 8–30; TEMP 36.4–36.6; O2SAT 94–100; BMI 18.4
--- NOTE | ~2023-08-28 | US_ITS ---
EXAMINATION: US renal BI DATE: 08/30/2023 15:35 INDICATION: Chronic kidney disease TECHNIQUE: Multiple grayscale and Doppler ultrasound images of the kidneys were obtained. COMPARISON: None. FINDINGS: The right kidney measures 9.3 x 3.8 x 4.1 cm and contains small cysts measuring up to 1.8 c m. The left kidney measures 9.6 x 5.8 x 4.1 cm. The kidneys demonstrate normal parenchymal echogenici ty. There is no hydronephrosis. The bladder is normal. IMPRESSION: 1. Unremarkable kidneys without hydronephrosis. Reviewed, dictated and finalized at location B. E ENGINEER
--- NOTE | ~2023-08-28 | XR_ITS ---
EXAMINATION: XR chest 2V DATE: 08/28/2023 11:15 INDICATION: Weakness TECHNIQUE: Frontal and lateral views of the chest are obtained COMPARISON: 08/15/2023 FINDINGS: There are minimal airspace opacities of the lung bases. There are small pleural effusions. There is no pneumothorax. The heart size is normal. There is moderate thoracic spondylosis. Median st ernotomy wires are consistent with prior cardiac surgery IMPRESSION: 1. Minimal airspace opacities of the lung bases, consistent with atelectasis versus pneumonia. 2. Small pleural effusions. Reviewed, dictated and finalized at location B. RATOR HAND IMPRESSION: 1. Minimal airspace opacities of the lung bases, consistent with atelectasis ve rsus pneumonia. 2. Small pleural effusions.
--- NOTE | ~2023-08-28 | XR_ITS ---
EXAMINATION: XR chest 2V DATE: 08/31/2023 09:31 INDICATION: Congestive heart failure TECHNIQUE: AP and lateral views of the chest are obtained. COMPARISON: 08/28/2023 FINDINGS: There are minimal airspace opacities at the left costophrenic angle on the AP view. There a re small pleural effusions. No pneumothorax is identified. The heart size is normal. Median sternotom y wires and mediastinal surgical clips are seen, likely from prior coronary artery bypass grafting. T here is moderate thoracic spondylosis. IMPRESSION: 1. Small pleural effusions. 2. Left basilar airspace opacity, consistent with atelectasis versus pneumonia. Reviewed, dictated and finalized at location L. LE SCHOOL TUTOR
--- NOTE | 2023-08-28 10:57 | ECG_ITS ---
Measurements Intervals [place] Rate: 67 P: 24 [place]: 136 QRS: 28 QRSD: 125 T: 180 QT: 457 QTc: 483 Interpretive Statements SINUS RHYTHM MODERATE INTRAVENTRICULAR CONDUCTION DELAY [105+ ms QRS DURATION, 80+ ms Q/S IN V1/V2, NO Q AND 60+ ms R IN I/aVL/V5/V6] ST T-WAVE ABNORMALITIES LATERAL LEADS, CONSIDER ISCHEMIA PROLONGED QT INTERVAL ABNORMAL ECG COMPARED TO ECG 08/15/2023 10:29:29 INTRAVENTRICULAR CONDUCTION DELAY NOW PRESENT PROLONGED QT INTERVAL NOW PRESENT Electronically Signed On 08-29-2023 16:48:32 NUT PROCESS HELPER by Desmond Casey M.D.
[2023-08-28 11:35] LABS: Basophils Absolute Auto 0.1 K/mm3 (0.0-0.1); Basophils Percent Auto 0.6 % (0.2-1.2); Eosinophils Absolute Auto 0.1 K/mm3 (0-0.3); Eosinophils Percent Auto 0.7 % (0-4.4); Hemoglobin 8.7 g/dL (14.0-18.0); Immature Granulocyte Percent A 0.7 % (0-0.5); Lymphocytes Absolute Auto 1.19 K/mm3 (0.9-3.2); Lymphocytes Percent Auto 8.6 % (18.3-44.2); Mean Corpuscular Hemoglobin 22.4 pg (26-34); Mean Corpuscular Volume 74.7 fl (80-100); Monocytes Absolute Auto 0.7 K/mm3 (0.1-0.6); Monocytes Percent Auto 5.3 % (2.6-8.5); Neutrophils Absolute Auto 11.7 K/mm3 (1.3-6.7); Neutrophils Percent Auto 84.1 % (45.5-73.1); Platelet Count Result 405 k/mm3 (150-375); Red Blood Count 3.88 M/mm3 (4.6-6.20); Red Cell Distribution Width 18.7 % (11.5-14.5); White Blood Count 13.9 K/mm3 (4.5-10.0)
[2023-08-28 11:46] LABS: INR 1.5; Prothrombin Time 19.2 Seconds (11.1-14.7)
[2023-08-28 12:10] LABS: Anisocytosis 1+ (NORMAL); Hypochromasia 1+ (NORMAL); Ovalocytes 1+ (NORMAL); Platelet Estimate Adequate (Adequate); Schistocytes None Seen (NORMAL)
--- NOTE | 2023-08-28 12:20 | ED.RECABL ---
HPI - Recheck/Abnormal Lab/Rx General Chief Complaint: Recheck/Abnormal Lab/Rx Stated Complaint: low BP, decreased appetite Time Seen by Provider: 08/28/23 10:56 Source: patient and family Mode of arrival: wheelchair Limitations: no limitations History of Present Illness HPI narrative: This is a 83 year old male that presents to the ER for generalized weakness. Reports he has not been able to keep any food down over the last week. Any time he eats it comes back up. He feels like it gets stuck. He is able to tolerate liquids and he has been able to take his medication. Reports some exertional dyspnea which he was recently evaluated by his cold mill inspector and feels is due to CHF. Denies fever, chest pain, abdominal pain, or dysuria. Related Data Home Medications Medication Instructions Recorded Confirmed alendronate 70 mg tablet 70 mg PO WEEKLY 12/08/19 08/28/23 tofacitinib 5 mg tablet 5 mg PO DAILY 12/08/19 08/28/23 nitroglycerin 0.4 mg sublingual 0.4 mg sublingual Q5M PRN Chest 12/06/22 08/28/23 tablet Pain empagliflozin 10 mg tablet 25 mg PO DAILY 07/10/23 08/28/23 metoprolol succinate 25 mg 25 mg PO QAM 07/11/23 08/28/23 tablet,extended release 24 hr (Toprol XL) ranolazine 500 mg tablet,extended 500 mg PO Q12H 07/31/23 08/28/23 release,12 hr apixaban 5 mg tablet (Eliquis) 2.5 mg PO BID 08/16/23 08/28/23 leflunomide 20 mg tablet 40 mg PO BID 08/28/23 08/28/23 pantoprazole 20 mg tablet,delayed 20 mg PO QAM 08/28/23 08/28/23 release rosuvastatin 10 mg BYMOUTH DAILY 08/28/23 08/28/23 Allergies Allergy/AdvReac Type Severity Reaction Status Date / Time Dqosgth-TPA-TwT Reductase Allergy Unknown Unknown Verified 08/28/23 09:49 Inhibitor [Mruaytd-DXP-RxB Reductase Inhibitors] atorvastatin Allergy Unknown Verified 08/28/23 09:49 hydroxychloroquine Allergy Unknown Verified 08/28/23 09:49 peanut Allergy Unknown Verified 08/28/23 09:49 Penicillins Allergy Unknown Verified 08/28/23 09:49 Sulfa (Sulfonamide Allergy Unknown Verified 12 09:49 Antibiotics) Review of Systems Review of Systems: CONSTITUTIONAL: Denies fever CARDIOVASCULAR: Denies chest pain, or edema. RESPIRATORY: Reports dyspnea. Denies cough GASTROINTESTINAL: Reports nausea and vomiting. Denies abdominal pain GENITOURINARY: Denies dysuria NEUROLOGIC: Reports generalized weakness. All systems reviewed & are unremarkable except as noted in HPI and below PMFSH Past Medical History Medical History Carotid stenosis Chronic anemia Chronic kidney disease, stage 3 Coronary artery disease Dyslipidemia History of stroke Hypertension Inflammatory and immune myopathies Osteoarthritis Paroxysmal atrial fibrillation Rheumatoid arthritis Vitamin D deficiency Surgical History Surgical History History of thoracotomy Hx of CABG pt and daughter said he had a AR during angiogram and had sternotomy and had 8 stents Family History Family History Father Acute myocardial infarction Hypertension Mother Acute myocardial infarction Social History Social History Social History: Patient has not smoked or drink alcohol since 1999. 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 He designates his daughter Yoko as his surrogate decision maker. He would like to be a full code. Smoking status: Former smoker Tobacco type: cigarettes Second hand tobacco smoke exposure: No Smoking end date: 01/27/02 Alcohol intake: never Substance use: never Substance use type: does not use Lack of Transportation: No Lack of Food: Never True Current Housing: I Have Housing Concerned About Future Housing: No Difficulty Paying Gas/Electric Bills: No Difficulty Paying for Meds: No Currently Unemployed: No Education: Bachelor's Degr
[2023-08-28 12:25] LABS: Alanine Aminotransferase 23 U/L (6-50); Albumin Level 3.2 g/dL (3.5-5.1); Alkaline Phosphatase 222 U/L (38-126); Anion Gap 6 mmol/L (8-16); Aspartate Amino Transferase 36 U/L (17-59); Bilirubin,Total 0.8 mg/dL (0.2-1.3); Blood Urea Nitrogen 48 mg/dL (9-20); Calcium 8.3 mg/dL (8.4-10.2); Carbon Dioxide 31 mmol/L (22-30); Chloride 99 mmol/L (98-107); Estimated CRCL calculation 20 ml/min; Estimated Glomerular Filt Rate 34; Glucose 104 mg/dL (65-110); Lipase 306 U/L (23-300); Potassium 3.3 mmol/L (3.4-5.0); Sodium 136 mmol/L (137-145)
[2023-08-28 12:34] LABS: NT Pro B Type Natriuretic Pept > 30000 pg/mL (19.9-100)
[2023-08-28] MEDS: POTASSIUM CHLORIDE INJ 40 MEQ in SODIUM CHLORIDE 0.9% IV 500 ML 130 MEQ IVPB (12:49)
[2023-08-28 12:50] LABS: Appearance Urine Clear (Clear); Bilirubin Urine Negative (Negative); Blood Urine Negative (Negative); Color Urine Yellow (Yellow); Glucose Urine UA 1+ mg/dL (Negative); Ketones Urine Negative (Negative); Leukocyte Esterase Ur Negative LEU/UL (Negative); Nitrate Urine Negative (Negative); Protein Urine Negative (Negative); Specific Grav Ur 1.011 (1.001-1.035); Urobilinogen Urine 0.2 mg/dL (<2.0)
[2023-08-28 12:56] LABS: Magnesium 2.5 mg/dL (1.6-2.3)
[2023-08-28 13:05] LABS: Add Urine Microscopic? NO
[2023-08-28 13:11] LABS: Troponin I 0.081 ng/mL (0.000-0.034)
--- NOTE | 2023-08-28 15:01 | ECG_ITS ---
Measurements Intervals [place] Rate: 70 P: 40 [place]: 164 QRS: 34 QRSD: 109 T: 60 QT: 420 QTc: 456 Interpretive Statements SINUS RHYTHM POSSIBLE LEFT ATRIAL ENLARGEMENT [-0.1mV P WAVE IN V1/V2] LOW QRS VOLTAGE IN EXTREMITY LEADS [QRS DEFLECTION < 0.5 mV IN LIMB LEADS] MODERATE INTRAVENTRICULAR CONDUCTION DELAY [105+ ms QRS DURATION, 80+ ms Q/S IN V1/V2, NO Q AND 60+ ms R IN I/aVL/V5/V6] ST DEVIATION AND MODERATE T-WAVE ABNORMALITY, CONSIDER LATERAL ISCHEMIA [-0.1+ mV T WAVE IN I/aVL/V5/V6] ABNORMAL ECG COMPARED TO ECG 08/15/2023 10:29:29 INTRAVENTRICULAR CONDUCTION DELAY NOW PRESENT Electronically Signed On 08-29-2023 16:48:47 RESERVATIONS SPECIALIST by Desmond Casey M.D.
[2023-08-28 15:47] LABS: Troponin I 0.075 ng/mL (0.000-0.034)
--- NOTE | 2023-08-28 17:21 | PM.IMHP ---
H&P: HPI History of Present Illness Date/Time: 08/28/23 15:30 Chief Complaint: Difficulties swallowing. Narrative: This is a very pleasant 83-year-old male with history of stroke, coronary artery disease, combined systolic and diastolic congestive heart failure, hypertension, and rheumatoid arthritis who presented to the emergency department via private vehicle for evaluation of difficulty swallowing. The patient provides the following history. Over the last week or so he has been having issues keeping down solid foods, reporting that he vomits shortly after eating. He has not noticed any issues with liquids however. He reports having lost about 10 lb and he has become increasingly weak. Also he has noticed increasing dyspnea on exertion the last several weeks. For instance he is now getting short of breath when walking about 15 ft across the room. At times he has some pressure in his chest as well though that improves with rest. He denies syncope, near syncope, fever, chills, sweats, epigastric and abdominal pain, bloating, belching, orthopnea, paroxysmal nocturnal dyspnea, edema, hematemesis, melena, hematochezia, and diarrhea. Of note the patient is known to myself and the hospitalist service from an admission last month at which time he was transferred to [facility] for left heart catheterization per Dr. Tinajero. In the ED: He was afebrile on arrival with stable vital signs. Labs were significant for a WBC count of 13.9, hemoglobin 8.7, MCV 74.7, INR 1.5, BUN 48, creatinine 1.90, potassium 3.3, troponin 0.081, proBNP greater than 30,000. Chest x-ray showed minimal airspace opacities of the lung bases and small pleural effusions. He was given 40 mEq IV potassium chloride and he is being admitted in this setting for GI and cardiology consultations. Review of Systems Review of Systems: Twelve systems were reviewed and are negative except for as per HPI. [facility] Past Medical History Medical History (Updated 08/28/23 @ 22:20 by Erica Pandya PA-C) Carotid stenosis Chronic anemia Chronic kidney disease, stage 3 Combined systolic and diastolic cardiac dysfunction Coronary artery disease Dyslipidemia History of stroke Hypertension Inflammatory and immune myopathies Osteoarthritis Paroxysmal atrial fibrillation Rheumatoid arthritis Vitamin D deficiency Surgical History Surgical History (Updated 08/28/23 @ 22:18 by Erica Pandya PA-C) History of coronary artery stent placement History of thoracotomy Repair heart muscle in 1999. Family History Family History Father Acute myocardial infarction Hypertension Mother Acute myocardial infarction Social History Social History Social History: Patient has not smoked or drink alcohol since 1999. 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 He designates his daughter Yoko as his surrogate decision maker. He would like to be a full code. Smoking status: Never smoker Tobacco type: cigarettes Second hand tobacco smoke exposure: No Smoking end date: 01/27/02 Alcohol intake: never Substance use: never Substance use type: does not use Lack of Transportation: No Lack of Food: Never True Current Housing: I Have Housing Concerned About Future Housing: No Difficulty Paying Gas/Electric Bills: No Difficulty Paying for Meds: No Currently Unemployed: No Education: Decline to Answer Difficulty w/ Childcare or Family Care: No Spiritual care concerns: No Agree to blood products: Yes Meds Home Medications and Allergies Home Medications Medication Instructions Recorded Confirmed Type alendronate 70 mg tablet 70 mg PO WEEKLY 12/08/19 08/28/23 History tofacitinib 5 mg tablet 5 mg PO DAILY 12/08/19 08/28/23 History clopidogrel 75 mg tablet (Plavix) 75 mg PO DAILY #30 tabs 01/29/20 08/28/23 Rx nitroglycerin 0.4 mg sublingual 0.4 mg sublingua
--- NOTE | 2023-08-28 18:51 | ADMGEN ---
This patient, Jose Maria Baker, was admitted to IMU Room 213-01. Patient/family oriented to hospital policies and general routines including ID bracelet, bed and alarms, visiting hours, pain management, procedures, bathroom and other care routines, personal items, smoking policy, room service/diet, and visiting hours. Information on how to activate the Rapid Response Team has been discussed. Patient/Family are encouraged to report perceived risks to care and to ask questions if they do not understand what they are told or what they should do.
--- NOTE | 2023-08-28 18:55 | PC.NURSE ---
Patient is not aware of the his home medications. He states that his daughter has a list. This RN, called the patients daughter and left a voice message asking her to return a call to me or the night nurse to review the patient medication and history at 1845pm. The patient is forgetful, states that he had a procedure recently, but unable to indicate what the procedure was or what type of facility the procedure was at.
[2023-08-28 20:27] LABS: Troponin I 0.069 ng/mL (0.000-0.034)
[2023-08-29] VITALS (20 sets, daily range): BP systolic 112–132; BP diastolic 39–59; PULSE 61–92; RESP 15–25; TEMP 35.6–36.8; O2SAT 94–100; BMI 18.1
[2023-08-29] MEDS: RANOLAZINE 500 MG TAB.ER.12H PO ×3 (00:32→20:06)
[2023-08-29] MEDS: ROSUVASTATIN 10 MG TABLET PO ×2 (00:32→20:07)
[2023-08-29] MEDS: FUROSEMIDE INJ 40 MG/4 ML VIAL 20 MG IV PUSH (00:32)
[2023-08-29 05:42] LABS: Hemoglobin 8.3 g/dL (14.0-18.0); Mean Corpuscular HGB Conc 29.6 g/dl (32-36); Mean Corpuscular Hemoglobin 22.3 pg (26-34); Mean Corpuscular Volume 75.3 fl (80-100); Mean Platelet Volume 10.5 fl (7.4-10.4); Platelet Count Result 387 k/mm3 (150-375); Red Blood Count 3.72 M/mm3 (4.6-6.20); Red Cell Distribution Width 18.8 % (11.5-14.5); White Blood Count 11.9 K/mm3 (4.5-10.0)
[2023-08-29 05:52] LABS: Potassium 3.7 mmol/L (3.4-5.0)
[2023-08-29 05:54] LABS: Iron < 10 ug/dL (49-181)
[2023-08-29 05:58] LABS: Anion Gap 9 mmol/L (8-16); Blood Urea Nitrogen 46 mg/dL (9-20); Calcium 8.2 mg/dL (8.4-10.2); Carbon Dioxide 26 mmol/L (22-30); Chloride 102 mmol/L (98-107); Estimated CRCL calculation 20 ml/min; Estimated Glomerular Filt Rate 32; Glucose 95 mg/dL (65-110); Magnesium 2.5 mg/dL (1.6-2.3); Sodium 137 mmol/L (137-145)
[2023-08-29 06:54] LABS: Percent Iron Saturation < 3 % (20-50)
[2023-08-29 07:03] LABS: Folic Acid 10.1 ng/mL (2.76->20); Vitamin B12 > 1000.0 pg/mL (239-931)
[2023-08-29 07:24] LABS: Free T4 Free Thyroxine Reflex 1.74 ng/dL (0.78-2.19)
[2023-08-29 08:09] LABS: Total Triiodothyronine (T3) 0.81 NG/ML (0.97-1.69)
[2023-08-29] MEDS: CLOPIDOGREL BISULFATE 75 MG TABLET PO (10:56)
[2023-08-29] MEDS: FUROSEMIDE 40 MG TABLET PO ×2 (10:56→18:03)
[2023-08-29] MEDS: EMPAGLIFLOZIN 25 MG TABLET PO (10:56)
[2023-08-29] MEDS: METOPROLOL SUCCINATE EXT REL 25 MG TABCR PO (10:57)
[2023-08-29] MEDS: LEFLUNOMIDE 20 MG TABLET PO (10:57)
[2023-08-29] MEDS: ISOSORBIDE MONONITRATE 30 MG TAB.ER.24H PO (10:57)
[2023-08-29] MEDS: PANTOPRAZOLE SOD SESQUIHYDRATE 20 MG TAB PO (10:57)
[2023-08-29] MEDS: VITAMIN B CMPLX/VIT C/FOLIC AC 1 CAPSULE 1 CAP PO (10:57)
[2023-08-29] MEDS: LACTATED RINGERS 1,000 ML 150 ML IV CONT (14:18)
--- NOTE | 2023-08-29 14:29 | PC.NURSE ---
To GI Lab per [stretcher at 1400 ], IV [saline locked ]. Report given to [JANUSZ Lozano ]. Patient alert and oriented, daughter at bedside.
--- NOTE | 2023-08-29 14:52 | WPDANESEPPF ---
Anes - Initial Pre Proc Eval Procedure: Operation Date: 08/29/23 15:30 Proposed Procedures p Esophagogastroduodenoscopy - Jerome Rodriguez MD Date/Time: 08/29/23 14:52 Surgeon: Ryne Davison MD Pre Op Diagnosis: Hypokalemia/Elevated Troponin/CHF/Dysphagia Patient Data Age: 83 Gender: M Height: 1.78 m Weight: 57.5 kg Last Vital Signs Temp 97.5 F L 08/29/23 14:15 Pulse 70 08/29/23 14:15 Resp 20 08/29/23 14:15 BP 129/46 L 08/29/23 14:15 Pulse Ox 100 08/29/23 14:15 O2 Del Method Room Air 08/29/23 14:15 Allergies Allergy/AdvReac Type Severity Reaction Status Date / Time Wjndjcg-EXZ-PtQ Reductase Allergy Unknown Unknown Verified 08/28/23 09:49 Inhibitor [Uwemtag-FTE-DjY Reductase Inhibitors] atorvastatin Allergy Unknown Verified 08/28/23 09:49 hydroxychloroquine Allergy Unknown Verified 08/28/23 09:49 peanut Allergy Unknown Verified 08/28/23 09:49 Penicillins Allergy Unknown Verified 08/28/23 09:49 Sulfa (Sulfonamide Allergy Unknown Verified 08/28/23 09:49 Antibiotics) Home Medications Medication Instructions Recorded Confirmed Type alendronate 70 mg tablet 70 mg PO WEEKLY 12/08/19 08/28/23 History tofacitinib 5 mg tablet 5 mg PO DAILY 12/08/19 08/28/23 History clopidogrel 75 mg tablet (Plavix) 75 mg PO DAILY #30 tabs 01/29/20 08/28/23 Rx nitroglycerin 0.4 mg sublingual 0.4 mg sublingual Q5M PRN Chest 12/06/22 08/28/23 History tablet Pain isosorbide mononitrate 30 mg 30 mg PO QAM #30 tabs 06/17/23 08/28/23 Rx tablet,extended release 24 hr metoprolol succinate 25 mg 25 mg PO QAM 07/11/23 08/28/23 History tablet,extended release 24 hr (Toprol XL) ranolazine 500 mg tablet,extended 500 mg PO Q12H 07/31/23 08/28/23 History release,12 hr apixaban 5 mg tablet (Eliquis) 2.5 mg PO BID 08/16/23 08/28/23 History empagliflozin 25 mg tablet 25 mg PO DAILY 08/28/23 08/28/23 History (Jardiance) furosemide 40 mg tablet (Lasix) 40 mg PO BID 08/28/23 08/28/23 History leflunomide 20 mg tablet 20 mg PO DAILY 08/28/23 08/28/23 History pantoprazole 20 mg tablet,delayed 20 mg PO QAM 08/28/23 08/28/23 History release rosuvastatin 10 mg BYMOUTH HS 08/28/23 08/28/23 History vitamin B complex and vitamin C 1 cap PO DAILY 08/28/23 08/28/23 History no.20-folic acid 1 mg capsule Laboratory Tests 08/28/23 08/28/23 08/29/23 15:05 19:47 05:22 WBC 11.9 H K/mm3 (4.5-10.0) RBC 3.72 L M/mm3 (4.6-6.20) Hgb 8.3 L g/dL (14.0-18.0) Hct 28.0 L % (42.0-52.0) MCV 75.3 L fl (80-100) MCH 22.3 L pg (26-34) MCHC 29.6 L g/dl (32-36) RDW 18.8 H % (11.5-14.5) Plt Count 387 H k/mm3 (150-375) MPV 10.5 H fl (7.4-10.4) Sodium 137 mmol/L (137-145) Potassium 3.7 mmol/L (3.4-5.0) Chloride 102 mmol/L (98-107) Carbon Dioxide 26 mmol/L (22-30) Anion Gap 9 mmol/L (8-16) BUN 46 H mg/dL (9-20) Creatinine 2.00 H mg/dL (0.7-1.3) Estim Creat Clear Calc 20 ml/min Estimated GFR 32 L (59 - ) Glucose 95 mg/dL (65-110) Calcium 8.2 L mg/dL (8.4-10.2) Magnesium 2.5 H mg/dL (1.6-2.3) Iron < 10 L ug/dL (49-181) TIBC 330 ug/dL (265-497) % Saturation < 3 L % (20-50) Ferritin 30.20 ng/mL (11.1-264) Troponin I 0.075 H* ng/mL 0.069 H* ng/mL (0.000-0.034) (0.000-0.034) Vitamin B12 > 1000.0 H pg/mL (239-931) Folate 10.1 ng/mL (2.76->20) TSH (Reflex) 4.830 H uIU/mL (0.465-4.68) Free T4 1.74 ng/dL (0.78-2.19) Total T3 0.81 L NG/ML (0.97-1.69) Patient hx anesthesia problems: none Family hx anesthesia problems: none Results Review: All pre-operative results and documents have been reviewed as part of the pre-operativ
--- NOTE | 2023-08-29 15:06 | WPDGICN ---
Assessment and Plan Assessment and plan (1) Dysphagia: Qualifiers: Dysphagia type: unspecified Qualified Code(s): R13.10 - Dysphagia, unspecified Code(s): R13.10 - Dysphagia, unspecified Status: Acute Assessment and Plan: will assess with EGD, history of weight loss and regurgitation after eating, never had egd assess if stricture, esophagitis, malignancy, etc (2) Combined systolic and diastolic cardiac dysfunction: Code(s): I51.89 - Other ill-defined heart diseases Status: Acute Assessment and Plan: started on medical treatment had cardiac cath few weeks ago (3) Microcytic anemia: Code(s): D50.9 - Iron deficiency anemia, unspecified Status: Acute (4) Chronic kidney disease, stage 3: Code(s): N18.30 - Chronic kidney disease, stage 3 unspecified Status: Acute Assessment and Plan: near baseline monitor (5) Coronary artery disease: Code(s): I25.10 - Atherosclerotic heart disease of [place] coronary artery without angina pectoris Status: Acute (6) Elevated troponin: Code(s): R79.89 - Other specified abnormal findings of blood chemistry Status: Acute GI Consult Note Consult date/time: 08/29/23 15:06 Reason for consult: dysphagia HPI: Jose Maria Baker is a 83 year old male with history of stroke, coronary artery disease, combined systolic and diastolic congestive heart failure (last cardiac cath few weeks ago), hypertension, and rheumatoid arthritis who presented to the emergency department via private vehicle for evaluation of difficulty swallowing.? He says that even since cardiac cath experiencing persistent difficulty with keeping down solid foods and vomits shortly after eating, family member says that had weight loss and never had EGD. Also he has noticed increasing dyspnea on exertion the last several weeks. ER evaluation showed labs WBC count of 13.9, hemoglobin 8.7, MCV 74.7, INR 1.5, BUN 48, creatinine 2 (near baseline), potassium 3.3, troponin 0.081, proBNP greater than 30,000. Chest x-ray showed minimal airspace opacities of the lung bases and small pleural effusions. Review of Systems Constitutional: Constitutional: Reports fatigue Eyes: Eyes: Denies blurry vision ENT: Reports dysphagia Cardiovascular: Cardiovascular: Denies diaphoresis Respiratory: Respiratory: Reports dyspnea on exertion Gastrointestinal: Gastrointestinal: Reports nausea Genitourinary: Genitourinary: Denies hematuria Musculoskeletal: Musculoskeletal: Denies neck pain Integumentary/Breasts: Skin/Breast: Denies rash Neurologic: Denies Abnormal speech present Psychiatric: Psychiatric: Denies behavioral changes COUNTS INCLUDE 234 BEDS AT THE [facility] Past Medical History Medical History (Updated 08/28/23 @ 22:20 by Erica Pandya PA-C) Carotid stenosis Chronic anemia Chronic kidney disease, stage 3 Combined systolic and diastolic cardiac dysfunction Coronary artery disease Dyslipidemia History of stroke Hypertension Inflammatory and immune myopathies Osteoarthritis Paroxysmal atrial fibrillation Rheumatoid arthritis Vitamin D deficiency Surgical History Surgical History (Updated 08/28/23 @ 22:18 by Erica Pandya PA-C) History of coronary artery stent placement History of thoracotomy Repair heart muscle in 1999. Family History Family History Father Acute myocardial infarction Hypertension Mother Acute myocardial infarction Social History Social History Social History: Patient has not smoked or drink alcohol since 1999. 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 He designates his daughter Yoko as his surrogate decision maker. He would like to be a full code. Smoking status: Never smoker Tobacco type: cigarettes Second hand tobacco smoke exposure: No Smoking end date: 01/27/02 Alcohol intake: never Substance use: n
--- NOTE | 2023-08-29 17:10 | PM.CNCAR ---
Assessment and Plan Assessment and plan (1) Combined systolic and diastolic cardiac dysfunction: Code(s): I51.89 - Other ill-defined heart diseases Status: Acute Assessment and Plan: Patient currently appears euvolemic. Review of [facility] notes show that patient was discharged on PO Lasix 40mg once daily. He was given IV Lasix on admission and has been started on PO Lasix 40mg BID. Does not need further IV diuresis at this point as clinically he appears euvolemic. Continue with PO Lasix 40mg BID. (2) Elevated troponin: Code(s): R79.89 - Other specified abnormal findings of blood chemistry Status: Acute Assessment and Plan: Flat, no ischemic EKG changes. Not consistent with ACS. (3) Dysphagia: Qualifiers: Dysphagia type: unspecified Qualified Code(s): R13.10 - Dysphagia, unspecified Code(s): R13.10 - Dysphagia, unspecified Status: Acute Assessment and Plan: GI consulted and underwent endoscopy (4) Chronic kidney disease, stage 3: Code(s): N18.30 - Chronic kidney disease, stage 3 unspecified Status: Acute Assessment and Plan: Monitor renal function. (5) Paroxysmal atrial fibrillation: Code(s): I48.0 - Paroxysmal atrial fibrillation Status: Acute Assessment and Plan: Resume Eliquis (6) Coronary artery disease: Code(s): I25.10 - Atherosclerotic heart disease of [place] coronary artery without angina pectoris Status: Acute Assessment and Plan: Stable, continue Plavix, home antianginal regimen. History of Present Illness History of Present Illness Consult date/time: 08/29/23 17:10 Requesting physician: Erica Pandya PA-C Consult reason: congestive heart failure Reason For Visit: Hypokalemia/Elevated Troponin/CHF/Dysphagia Narrative: We are consulted for CHF. This is an 83 year old male with coronary artery disease s/p PCI, combined systolic and diastolic congestive heart failure, stroke, hypertension, rheumatoid arthritis who presented for evaluation of difficulty swallowing. Reports dyspnea on exertion over past few days as well. No chest pain. On admission, noted to have troponin of 0.081, BNP of >30,000. CXR with small pleural effusions. Given dose of IV Lasix. Patient was recently discharged from [facility] at the beginning of August. He was admitted with acute on chronic CHF. Cardiac catheterization showed patent recently placed mid-distal LAD stents, and patent LCX balloon angioplasty. No repeat intervention was deemed necessary on repeat cardiac catheterization. Patient was discharged on PO Lasix 40mg daily. At the time of my evaluation, patient had undergone endoscopy and is resting comfortably in bed. No chest pain, palpitations, shortness of breath, orthopnea. Review of Systems Review of Systems: All systems reviewed & are unremarkable except as noted in HPI and below (HPI) [facility] Past Medical History Medical History Carotid stenosis Chronic anemia Chronic kidney disease, stage 3 Combined systolic and diastolic cardiac dysfunction Coronary artery disease Dyslipidemia History of stroke Hypertension Inflammatory and immune myopathies Osteoarthritis Paroxysmal atrial fibrillation Rheumatoid arthritis Vitamin D deficiency Surgical History Surgical History History of coronary artery stent placement History of thoracotomy Repair heart muscle in 1999. Family History Family History Father Acute myocardial infarction Hypertension Mother Acute myocardial infarction Social History Social History Social History: Patient has not smoked or drink alcohol since 1999. 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 He designates his daughter Yoko as his surrogate decision maker. He would like to be a full c
--- NOTE | 2023-08-29 19:10 | PM.IMPN ---
Progress Note: A&P Assessment and Plan (1) Dysphagia: Qualifiers: Dysphagia type: unspecified Qualified Code(s): R13.10 - Dysphagia, unspecified Code(s): R13.10 - Dysphagia, unspecified Status: Acute (2) Microcytic anemia: Code(s): D50.9 - Iron deficiency anemia, unspecified Status: Acute (3) Combined systolic and diastolic cardiac dysfunction: Code(s): I51.89 - Other ill-defined heart diseases Status: Acute (4) Elevated troponin: Code(s): R79.89 - Other specified abnormal findings of blood chemistry Status: Acute (5) Hypokalemia: Code(s): E87.6 - Hypokalemia Status: Acute (6) Chronic kidney disease, stage 3: Code(s): N18.30 - Chronic kidney disease, stage 3 unspecified Status: Acute Plan Continue with current medications Patient underwent EGD today which showed mild gastritis Continue with oral Protonix Patient has combined systolic and diastolic cardiac dysfunction leading to minimally elevated flat cardiac enzymes Cardiology evaluated patient and advised to continue with Lasix 40 mg p.o. b.i.d. No cardiac intervention required at this time Started patient on regular diet Encourage patient to eat regularly DC planning home in a.m. if he remains stable and cleared by both Cardiology and GI ? Patient seen and examined at bedside during my morning rounds ? Collaborated with patient's nurse at the bedside in detail and addressed all concerns ? Labs, electrolytes, radiology, investigations and test results reviewed ? Consult/Nursing/Ancilliary notes on the chart reviewed and appreciated ? Spoke with patient/family at the bedside and answered all the questions that they had Repeat labs in a.m. Electrolyte replacement as per protocol. Patient will be monitored very closely on the floor. Further recommendations as per the hospital course. Time Spent With Patient Time with patient: 15 - 25 minutes Subjective Date/time seen: 08/29/23 19:10 Interval history: Patient seen and evaluated bedside during my morning rounds. Kept NPO for EGD later on. He underwent EGD which found gastritis without any obstruction. Cardiology evaluated patient for minimally elevated cardiac enzymes which are flat. Review of Systems Review of Systems: Twelve systems were reviewed and are negative except for as per HPI. Exam Narrative: General:?Well-developed elderly gentleman in no acute distress. Weight: 58.3 kg. BMI: 18.4. HEENT:??PERRL, EOMI. Sclera anicteric.? Oral mucosa moist.? Oropharynx clear. Neck:??Supple. No JVD. Respiratory:?Respirations are nonlabored. Faint crackles heard at the bases. Cardiovascular:??Regular rate and rhythm with S1-S2.?Systolic murmur at the upper sternal border. Chest:?No tenderness to palpation over the chest wall. Gastrointestinal:??Abdomen is soft, nontender, and nondistended with positive bowel sounds. Skin:??Warm and dry.? No rash or lesions on limited exam. Extremities:??No cyanosis, clubbing, or significant edema. Radial and pedal pulses intact. No palpable knots or cords. Negative Geno sign bilaterally. Neurological:??Alert.? Cranial nerves 2-12 are grossly intact. No gross focal deficits to casual conversation. Psychiatric:??Pleasant and cooperative with normal mood and affect.? Judgment and insight intact. Objective Data Vital Signs Vital Signs: Vital Signs - 24 hr 08/28/23 20:00 08/29/23 00:00 08/28/23 20:00 Temperature 36.6 C 36.8 C Pulse Rate 74 75 75 Respiratory Rate 18 18 18 Blood Pressure 123/46 L 129/50 L Pulse Oximetry 98 100 100 Oxygen Delivery Room Air 08/29/23 00:00 08/29/23 04:00 08/28/23 20:00 Temperature Pulse Rate 75 75 71 Respiratory Rate 18 18 Blood Pressure Pulse Oximetry 100 100 Oxygen Delivery Room Air Room Air 08/28/23 22:00 08/29/23 00:00 08/29/23 02:00 Temperature Pulse Rate 72 74 75 Respiratory Rate Blood Pressure Pulse Oximetr
[2023-08-30] VITALS (11 sets, daily range): BP systolic 112–123; BP diastolic 45–50; PULSE 51–77; RESP 16–18; TEMP 36.1–36.6; O2SAT 93–100
[2023-08-30] MEDS: EMPAGLIFLOZIN 25 MG TABLET PO (10:13)
[2023-08-30] MEDS: ISOSORBIDE MONONITRATE 30 MG TAB.ER.24H PO (10:13)
[2023-08-30] MEDS: FUROSEMIDE 40 MG TABLET PO ×2 (10:13→16:56)
[2023-08-30] MEDS: METOPROLOL SUCCINATE EXT REL 25 MG TABCR PO (10:13)
[2023-08-30] MEDS: LEFLUNOMIDE 20 MG TABLET PO (10:13)
[2023-08-30] MEDS: CLOPIDOGREL BISULFATE 75 MG TABLET PO (10:13)
[2023-08-30] MEDS: PANTOPRAZOLE SOD SESQUIHYDRATE 20 MG TAB PO (10:14)
[2023-08-30] MEDS: RANOLAZINE 500 MG TAB.ER.12H PO ×2 (10:14→21:47)
[2023-08-30] MEDS: VITAMIN B CMPLX/VIT C/FOLIC AC 1 CAPSULE 1 CAP PO (10:14)
--- NOTE | 2023-08-30 11:16 | PCNFU ---
Nutrition Follow-Up Complete: Severe protein calorie malnturition related to poor intake with altered GI function as evidenced by pt report of unable to keep solid food down for greater than 1 week, noted significant weight loss of -9% x 1 month, and NFPE findings. Goal: Meet estimated needs - Progressing toward goal Pt current nutrition is Regular diet, puree, Ensure Compact BID for additional 220 kcal and 9 g protein each. Nutrition recommendation: Continue with current nutrition care plan and orders. Agree with orders Last recorded weight is 61.3 kg. Bowel Motility: Last BM 08/27/23 Labs Reviewed: No new labs today Meds Noted: Jardiance, Lasix, Protonix Skin: WNL Additional Notes: Pt had EGD yesterday with no significant findings related to swallow. Puree diet. Encouraged PO intake. Pt does like Ensure and drinks it at home. He will try to eat more. Says he is being discharged tomorrow. Monitor for diet orders, plan of care, wt, labs. Follow up in 1 day.
[2023-08-30] MEDS: IRON SUCROSE COMPLEX 300 MG in SODIUM CHLORIDE 0.9% IV 250 ML 176.67 MG IVPB (13:07)
--- NOTE | 2023-08-30 13:15 | PM.CNNEP ---
Assessment and Plan Assessment and plan (1) VICTORIANO (acute kidney injury): Code(s): N17.9 - Acute kidney failure, unspecified Status: Acute Assessment and Plan: running a bit higher than baseline since admission due to necessity of diuretic therapy(?) possible overdiuresis in the context of poor oral intake? check urine electrolytes follow-up on renal ultrasound follow trend of repeat labs and UOP (2) Chronic kidney disease, stage 3: Code(s): N18.30 - Chronic kidney disease, stage 3 unspecified Status: Chronic Assessment and Plan: seems to run ~ 1.4 - 1.9mg/dl this causing him to fluctuate between CKD stage 3A and stage 3B presumably secondary to chronic heart failure, chronic diuretic use, CAD, HTN, vascular disease and age (3) Combined systolic and diastolic cardiac dysfunction: Code(s): I51.89 - Other ill-defined heart diseases Status: Acute Assessment and Plan: Cardiology following volume status okay on oral diuretics (4) Dysphagia: Qualifiers: Dysphagia type: unspecified Qualified Code(s): R13.10 - Dysphagia, unspecified Code(s): R13.10 - Dysphagia, unspecified Status: Acute Assessment and Plan: clinically better s/p EGD with findings of gastritis Gastroenterology following (5) Hypertension: Code(s): I10 - Essential (primary) hypertension Status: Chronic Assessment and Plan: reasonable control follow trend of hemodynamics I will continue follow patient with you while he remains hospitalized to make further recommendations as needed. Thank you for allowing me to participate in care this patient. History of Present Illness Reason for Consult Consult date: 08/30/23 Reason for consult: acute renal failure (on chronic kidney disease) Chief Complaint Chief complaint: Hypokalemia/Elevated Troponin/CHF/Dysphagia History of Present Illness Narrative: The patient is a 83-year-old male with a past medical history as outlined below who presented to [facility] Emergency room for further evaluation of difficulty swallowing. Apparently, over last week if not longer, the patient has been having difficulty keeping saw lid foods down. He reports that he vomits shortly after eating but does not have this trouble with liquids. Because of this issue, he states he has lost about 10 lb since become increasingly weak. Furthermore, he has noticed some worsening shortness of breath particularly with exertional activities over the last several weeks as well. He reports no dizziness, lightheadedness, fevers, chills, nausea, worsening edema, hematocrit six, melena or hematochezia. Given the constellation of symptoms as mentioned, he presented to the ER for further assessment. Workup and evaluation in the emergency room demonstrated the patient hemodynamically stable and afebrile. Routine blood tests were done which demonstrated a white blood cell count of 13.9, hemoglobin 8.7 BUN 48 and a creatinine of 1.9 with a potassium of 3.3. His proBNP was greater than 30,000 and his troponin was mildly elevated 0.81. His chest x-ray showed minimal airspace opacities of the lung and small pleural effusions. He was given supplemental potassium and subsequently admitted to the hospital with GI and Cardiology consultation. Since his admission, he has been seen by Gastroenterology and Cardiology. He underwent an EGD which showed mild gastritis and his oral intake has been better since that time. Cardiology has also seen the patient and felt that the patient is stable from a CHF perspective with no need for further invasive therapy or interventions. Renal consultation was requested due to his acute kidney injury/ acute renal failure on top of his presumed chronic kidney disease. For review of his records, earlier in the year his renal function was relatively stable and within normal limits. However, since
--- NOTE | 2023-08-30 13:19 | PCDIET ---
MD Consult: MD consulted dietitian. Daughter has concern pt is trying to starve himself . EGD showed gastritis. Pt told me this morning he was going to eat more. No swallow evaluation this visit. Recommend possible speech therapy consult.
--- NOTE | 2023-08-30 14:05 | PCPTNOTE ---
Attempted PT evaluation, pt with OT.
--- NOTE | 2023-08-30 15:08 | WPDGIPROGNO ---
Progress Note: A&P Assessment and Plan (1) Gastritis: Code(s): K29.70 - Gastritis, unspecified, without bleeding Status: Acute Assessment and Plan: mild gastritis now he is tolerating diet will follow from afar (2) Combined systolic and diastolic cardiac dysfunction: Code(s): I51.89 - Other ill-defined heart diseases Status: Acute Assessment and Plan: on medical treatment by cardiology (3) Dysphagia: Qualifiers: Dysphagia type: unspecified Qualified Code(s): R13.10 - Dysphagia, unspecified Code(s): R13.10 - Dysphagia, unspecified Status: Acute Assessment and Plan: he is eating now (4) Elevated troponin: Code(s): R79.89 - Other specified abnormal findings of blood chemistry Status: Acute (5) Chronic kidney disease, stage 3: Code(s): N18.30 - Chronic kidney disease, stage 3 unspecified Status: Acute Subjective Date/time seen: 08/30/23 15:08 Interval history: egd only mild dysphagia, no findings to explain dysphagia but he says that is eating more today and denies regurgitation Review of Systems Review of Systems: All systems reviewed & are unremarkable except as noted in HPI and below Exam Const: General: comfortable and no acute distress HENMT: Face/Nose/Sinus: Normal nares present Eyes: General: appearance normal, both eyes and all related structures Neck: Neck: supple Resp: Auscultation: clear to auscultation bilaterally Cardio: Rate: regular rate Rhythm: regular rhythm GI: Inspection: non-distended GI Palp: Yes Soft to palpation and No Tenderness to palpation present (GI) Auscultation: normal bowel sounds Skin: General skin exam: normal color Neuro: Speech: normal speech Motor exam (neuro): 5/5 motor strength present throughout Extrem: General: normal to inspection Psych: Mental Status: mental status grossly normal Objective Data Vital Signs Vital Signs: Vital Signs - 24 hr 08/29/23 15:55 08/29/23 16:05 08/29/23 16:15 Temperature Pulse Rate 63 61 62 Respiratory Rate 16 25 H 15 Blood Pressure 117/53 L 126/54 L 126/59 L Pulse Oximetry 94 94 98 Oxygen Delivery Room Air Room Air Room Air 08/29/23 16:52 08/29/23 16:00 08/29/23 16:00 Temperature 96.0 F L Pulse Rate 72 75 Respiratory Rate 18 Blood Pressure 132/51 L Pulse Oximetry 98 Oxygen Delivery Room Air 08/29/23 18:00 08/29/23 19:31 08/29/23 20:00 Temperature 98 F Pulse Rate 64 92 Respiratory Rate 16 Blood Pressure 112/45 L Pulse Oximetry 99 Oxygen Delivery Room Air 08/29/23 20:00 08/29/23 22:00 08/30/23 00:00 Temperature 98 F Pulse Rate 71 80 71 Respiratory Rate 16 Blood Pressure 112/50 L Pulse Oximetry 99 Oxygen Delivery 08/30/23 00:00 08/30/23 00:00 08/30/23 02:00 Temperature Pulse Rate 74 71 Respiratory Rate Blood Pressure Pulse Oximetry Oxygen Delivery Room Air 08/30/23 04:00 08/30/23 04:00 08/30/23 04:00 Temperature 97.8 F Pulse Rate 51 L 77 Respiratory Rate 16 Blood Pressure 121/49 L Pulse Oximetry 93 Oxygen Delivery Room Air 08/30/23 06:00 08/30/23 08:00 08/30/23 10:13 Temperature 97.9 F Pulse Rate 70 73 68 Respiratory Rate 16 Blood Pressure 120/46 L Pulse Oximetry 100 Oxygen Delivery 08/30/23 08:00 08/30/23 08:00 08/30/23 10:00 Temperature Pulse Rate 71 72 Respiratory Rate Blood Pressure Pulse Oximetry Oxygen Delivery Room Air 08/30/23 12:55 Temperature 97.6 F Pulse Rate 69 Respiratory Rate 16 Blood Pressure 123/45 L Pulse Oximetry 94 Oxygen Delivery Intake/Output Intake/Output: Intake & Output 08/27/23 08/28/23 08/29/23 08/30/23 23:59 23:59 23:59 23:59 Intake Total 520 490 240 Output Total 200 250 0 Balance 320 240 240 Meds/Results Medications: Active Medications Generic Name Dose Route Start Last Admin Trade Name Freq PRN Reason Stop Do
--- NOTE | 2023-08-30 17:59 | PM.IMPN ---
Progress Note: A&P Assessment and Plan (1) Dysphagia: Qualifiers: Dysphagia type: unspecified Qualified Code(s): R13.10 - Dysphagia, unspecified Code(s): R13.10 - Dysphagia, unspecified Status: Acute (2) Microcytic anemia: Code(s): D50.9 - Iron deficiency anemia, unspecified Status: Acute (3) Combined systolic and diastolic cardiac dysfunction: Code(s): I51.89 - Other ill-defined heart diseases Status: Acute (4) Elevated troponin: Code(s): R79.89 - Other specified abnormal findings of blood chemistry Status: Acute (5) Hypokalemia: Code(s): E87.6 - Hypokalemia Status: Acute (6) Chronic kidney disease, stage 3: Code(s): N18.30 - Chronic kidney disease, stage 3 unspecified Status: Acute Plan Continue with current medications Patient underwent EGD today which showed mild gastritis Continue with oral Protonix Started patient on regular diet Encourage patient to eat regularly Daughter concerned about the patient and requested Psychiatric/dietary evaluation We do not have a psychiatrist attached to our hospital, which could be addressed as an outpatient by patient's PCP Dietary consult order to assist patient in having oral diet Patient has combined systolic and diastolic cardiac dysfunction leading to minimally elevated flat cardiac enzymes Cardiology evaluated patient and advised to continue with Lasix 40 mg p.o. b.i.d. No cardiac intervention required at this time Patient has mild worsening in renal functions with creatinine bumping up from 1.9-2 Monitor renal functions closely and adjust Lasix dose as needed Patient is anemic with the microcytosis Iron profile done which showed iron deficiency anemia Patient started on IV Venofer 300 mg daily for 2-3 days He may be discharged on oral iron 224 mg p.o. b.i.d. upon discharge PT/OT evaluation ordered DC planning home in 1-2 days if he remains stable and cleared by both Cardiology and GI ? Patient seen and examined at bedside during my morning rounds ? Collaborated with patient's nurse at the bedside in detail and addressed all concerns ? Labs, electrolytes, radiology, investigations and test results reviewed ? Consult/Nursing/Ancilliary notes on the chart reviewed and appreciated ? Spoke with patient/family at the bedside and answered all the questions that they had Repeat labs in a.m. Electrolyte replacement as per protocol. Patient will be monitored very closely on the floor. Further recommendations as per the hospital course. I am signing off. Patient's medical care will be taken over by my covering hospitalist attending in am. Subjective Date/time seen: 08/30/23 17:59 Interval history: Patient lying in bed during my morning rounds. Encouraged patient to eat as EGD confirmed no blockage to eating. Daughter concerned about his eating and requesting Psychiatric/dietary evaluation. He feels weak and tired. Review of Systems Review of Systems: 14 systems were reviewed with pertinent positives and negatives per HPI. Except as documented in the HPI/progress notes, all other systems were reviewed and are negative. All systems reviewed & are unremarkable except as noted in HPI and below Exam Narrative: General:?Well-developed elderly gentleman in no acute distress. Weight: 58.3 kg. BMI: 18.4. HEENT:??PERRL, EOMI. Sclera anicteric.? Oral mucosa moist.? Oropharynx clear. Neck:??Supple. No JVD. Respiratory:?Respirations are nonlabored. Faint crackles heard at the bases. Cardiovascular:??Regular rate and rhythm with S1-S2.?Systolic murmur at the upper sternal border. Chest:?No tenderness to palpation over the chest wall. Gastrointestinal:??Abdomen is soft, nontender, and nondistended with positive bowel sounds. Skin:??Warm and dry.? No rash or lesions on limited exam. Extremities:??No cyanosis, clubbing, or significant edema. Radial and pedal pulses intact. No palpable knots or cord
[2023-08-30] MEDS: ROSUVASTATIN 10 MG TABLET PO (21:47)
[2023-08-31] VITALS (10 sets, daily range): BP systolic 114–127; BP diastolic 44–51; PULSE 65–100; RESP 16–18; TEMP 36.4; O2SAT 90–100
[2023-08-31 06:33] LABS: Albumin Level 3.1 g/dL (3.5-5.1); Anion Gap 10 mmol/L (8-16); Blood Urea Nitrogen 48 mg/dL (9-20); Calcium 8.2 mg/dL (8.4-10.2); Carbon Dioxide 26 mmol/L (22-30); Chloride 101 mmol/L (98-107); Estimated CRCL calculation 19 ml/min; Estimated Glomerular Filt Rate 27; Glucose 91 mg/dL (65-110); Phosphorus 3.3 mg/dL (2.5-4.5); Potassium 3.5 mmol/L (3.4-5.0); Sodium 137 mmol/L (137-145)
--- NOTE | 2023-08-31 07:30 | PM.IMPN ---
Progress Note: A&P Assessment and Plan (1) Dysphagia: Qualifiers: Dysphagia type: unspecified Qualified Code(s): R13.10 - Dysphagia, unspecified Code(s): R13.10 - Dysphagia, unspecified Status: Acute (2) Microcytic anemia: Code(s): D50.9 - Iron deficiency anemia, unspecified Status: Acute (3) Combined systolic and diastolic cardiac dysfunction: Code(s): I51.89 - Other ill-defined heart diseases Status: Acute (4) Elevated troponin: Code(s): R79.89 - Other specified abnormal findings of blood chemistry Status: Acute (5) Hypokalemia: Code(s): E87.6 - Hypokalemia Status: Acute (6) Chronic kidney disease, stage 3: Code(s): N18.30 - Chronic kidney disease, stage 3 unspecified Status: Acute Plan Continue with current medications Patient underwent EGD today which showed mild gastritis Continue with oral Protonix Started patient on regular diet Encourage patient to eat regularly Daughter concerned about the patient and requested Psychiatric/dietary evaluation We do not have a psychiatrist attached to our hospital, which could be addressed as an outpatient by patient's PCP Dietary consult order to assist patient in having oral diet add remeron 7.5 mg qhs po for increasing appetite Patient has combined systolic and diastolic cardiac dysfunction leading to minimally elevated flat cardiac enzymes Cardiology evaluated patient, patient is on Lasix 40 mg p.o. b.i.d. No cardiac intervention required at this time Due to worsening kidney function, hold Lasix repeat CXR VICTORIANO on CKD Patient has mild worsening in renal functions with creatinine bumping up from 1.9-2-2.3 today hold lasix today consult dental scheduler Monitor renal functions closely and adjust Lasix dose per dental scheduler and hospice clinical marketer recommendation Patient is anemic with the microcytosis Iron profile done which showed iron deficiency anemia Patient started on IV Venofer 300 mg daily for 2-3 days He may be discharged on oral iron 224 mg p.o. b.i.d. upon discharge PT/OT evaluation ordered Subjective Date/time seen: 08/31/23 07:30 Interval history: I saw examined today. Patient denies dyspnea, chest pain. Has general weakness. Left cervical, creatinine is trending up Exam Narrative: General:?Well-developed elderly gentleman in no acute distress. Weight: 58.3 kg. BMI: 18.4. HEENT:??PERRL, EOMI. Sclera anicteric.? Oral mucosa moist.? Oropharynx clear. Neck:??Supple. No JVD. Respiratory:?Respirations are nonlabored. Clear bilaterally Cardiovascular:??Regular rate and rhythm with S1-S2.?Systolic murmur at the upper sternal border. Chest:?No tenderness to palpation over the chest wall. Gastrointestinal:??Abdomen is soft, nontender, and nondistended with positive bowel sounds. Skin:??Warm and dry.? No rash or lesions on limited exam. Extremities:??No cyanosis, clubbing, or significant edema. Radial and pedal pulses intact. No palpable knots or cords. Negative Geno sign bilaterally. Neurological:??Alert.? Cranial nerves 2-12 are grossly intact. No gross focal deficits to casual conversation. Psychiatric:??Pleasant and cooperative with normal mood and affect.? Judgment and insight intact. Objective Data Vital Signs Vital Signs: Vital Signs - 24 hr 08/30/23 08:00 08/30/23 10:13 08/30/23 08:00 Temperature 97.9 F Pulse Rate 73 68 Respiratory Rate 16 Blood Pressure 120/46 L Pulse Oximetry 100 Oxygen Delivery Room Air 08/30/23 08:00 08/30/23 10:00 08/30/23 12:55 Temperature 97.6 F Pulse Rate 71 72 69 Respiratory Rate 16 Blood Pressure 123/45 L Pulse Oximetry 94 Oxygen Delivery 08/30/23 16:00 08/30/23 16:00 08/30/23 20:15 Temperature 97.7 F 97.0 F L Pulse Rate 69 66 67 Respiratory Rate 16 18 Blood Pressure 122/48 L 115/46 L Pulse Oximetry 94 98 Oxygen Delivery 08/30/23 20:00 08/31/23 00:00 08/31/23 04:00 Temper
[2023-08-31] MEDS: VITAMIN B CMPLX/VIT C/FOLIC AC 1 CAPSULE 1 CAP PO (08:50)
[2023-08-31] MEDS: LEFLUNOMIDE 20 MG TABLET PO (08:50)
[2023-08-31] MEDS: METOPROLOL SUCCINATE EXT REL 25 MG TABCR PO (08:50)
[2023-08-31] MEDS: CLOPIDOGREL BISULFATE 75 MG TABLET PO (08:50)
[2023-08-31] MEDS: ISOSORBIDE MONONITRATE 30 MG TAB.ER.24H PO (08:50)
[2023-08-31] MEDS: RANOLAZINE 500 MG TAB.ER.12H PO ×2 (08:50→21:31)
[2023-08-31] MEDS: PANTOPRAZOLE SOD SESQUIHYDRATE 20 MG TAB PO (08:51)
[2023-08-31] MEDS: EMPAGLIFLOZIN 25 MG TABLET PO (08:51)
[2023-08-31] MEDS: IRON SUCROSE COMPLEX 300 MG in SODIUM CHLORIDE 0.9% IV 250 ML 176.67 MG IVPB (08:51)
--- NOTE | 2023-08-31 13:16 | PM.PNNEP ---
Progress Note: A&P Assessment and Plan (1) VICTORIANO (acute kidney injury): Code(s): N17.9 - Acute kidney failure, unspecified Status: Acute Assessment and Plan: running a bit higher than baseline since admission due to necessity of diuretic therapy(?) possible overdiuresis in the context of poor oral intake? urine electrolytes with prerenal azotemia unremarkable renal ultrasound trial of gentle IVFs follow trend of repeat labs and UOP (2) Chronic kidney disease, stage 3: Code(s): N18.30 - Chronic kidney disease, stage 3 unspecified Status: Chronic Assessment and Plan: seems to run ~ 1.4 - 1.9mg/dl this causing him to fluctuate between CKD stage 3A and stage 3B presumably secondary to chronic heart failure, chronic diuretic use, CAD, HTN, vascular disease and age (3) Combined systolic and diastolic cardiac dysfunction: Code(s): I51.89 - Other ill-defined heart diseases Status: Acute Assessment and Plan: Cardiology following volume status okay diuretics on hold due to #1 (4) Dysphagia: Qualifiers: Dysphagia type: unspecified Qualified Code(s): R13.10 - Dysphagia, unspecified Code(s): R13.10 - Dysphagia, unspecified Status: Acute Assessment and Plan: clinically better s/p EGD with findings of gastritis Gastroenterology following (5) Hypertension: Code(s): I10 - Essential (primary) hypertension Status: Chronic Assessment and Plan: reasonable control follow trend of hemodynamics Will continue to follow. Subjective Date/time seen: 08/31/23 13:16 Interval history: Follow up for acute kidney injury on chronic kidney disease. Renal function a bit worse so diuretics are being held with the plan for gentle IVF resuscitation; no apparent distress noted at the time of my visit; no other events overnight or earlier this AM. Exam Narrative: General: elderly but thins male in NAD Heart: normal S1 and S2; no rub Lungs: clear to auscultation Abdomen: soft, nontender, nondistended, positive bowel sounds Extremities: no cyanosis or clubbing; no edema Skin: warm and dry Objective Data Vital Signs Vital Signs: Vital Signs Temp Pulse Resp BP Pulse Ox O2 Del Method 08/31/23 12:00 65 08/31/23 08:00 71 08/31/23 10:29 87 18 97 08/31/23 08:50 Room Air 08/31/23 09:45 Room Air 08/31/23 08:50 71 08/31/23 08:49 71 16 123/45 L 100 08/31/23 04:00 70 08/31/23 00:00 73 08/30/23 20:00 68 08/30/23 20:15 97.0 F L 67 18 115/46 L 98 Intake/Output Intake/Output: Intake & Output 08/28/23 08/29/23 08/30/23 08/31/23 23:59 23:59 23:59 23:59 Intake Total 520 490 865 365 Output Total 200 250 0 250 Balance 320 240 865 115 Meds/Results Medications: Active Medications Generic Name Dose Route Start Last Admin Trade Name Bereket PRN Reason Stop Dose Admin Clopidogrel Bisulfate 75 mg 08/29/23 09:00 08/31/23 08:50 Clopidogrel Bisulfate 75 Mg Tablet PO 75 mg DAILY TIM Administration Empagliflozin 25 mg 08/29/23 09:00 08/31/23 08:51 Empagliflozin 25 Mg Tablet PO 25 mg DAILY TIM Administration Iron Sucrose 300 mg/ Sodium 265 mls @ 176.667 mls/hr 08/30/23 12:00 08/31/23 10:21 Chloride IVPB 09/01/23 10:29 Infused DAILY TIM Infusion Isosorbide Mononitrate 30 mg 08/29/23 09:00 08/31/23 08:50 Isosorbide Mononitrate 30 Mg Tab.Er.24h PO 30 mg QAM TIM Administration Leflunomide 20 mg 08/29/23 09:00 08/31/23 08:50 Leflunomide 20 Mg Tablet PO 20 mg DAILY TIM Administration Metoprolol Succinate 25 mg 08/29/23 09:00 08/31/23 08:50 Metoprolol Succinate Ext Rel 25 Mg Tabcr PO 25 mg QAM TIM Administration Mirtazapine 7.5 mg 08/31/23 21:00 Mirtazapine 7.5 Mg Tablet PO HS TIM Miscellaneous Information 0 each 08/28/23 22:40 Katiei
--- NOTE | 2023-08-31 13:16 | P.PNNP_ITS ---
Progress Note: A&P Assessment and Plan (1) VICTORIANO (acute kidney injury): Code(s): N17.9 - Acute kidney failure, unspecified Status: Acute Assessment and Plan: * running a bit higher than baseline since admission * due to necessity of diuretic therapy(?) * possible overdiuresis in the context of poor oral intake? * urine electrolytes with prerenal azotemia * unremarkable renal ultrasound * trial of gentle IVFs * follow trend of repeat labs and UOP (2) Chronic kidney disease, stage 3: Code(s): N18.30 - Chronic kidney disease, stage 3 unspecified Status: Chronic Assessment and Plan: * seems to run ~ 1.4 - 1.9mg/dl * this causing him to fluctuate between CKD stage 3A and stage 3B * presumably secondary to chronic heart failure, chronic diuretic use, CAD, HTN, vascular disease and age (3) Combined systolic and diastolic cardiac dysfunction: Code(s): I51.89 - Other ill-defined heart diseases Status: Acute Assessment and Plan: * Cardiology following * volume status okay * diuretics on hold due to #1 (4) Dysphagia: Qualifiers: Dysphagia type: unspecified Qualified Code(s): R13.10 - Dysphagia, unspecified Code(s): R13.10 - Dysphagia, unspecified Status: Acute Assessment and Plan: * clinically better * s/p EGD with findings of gastritis * Gastroenterology following (5) Hypertension: Code(s): I10 - Essential (primary) hypertension Status: Chronic Assessment and Plan: * reasonable control * follow trend of hemodynamics Will continue to follow. Subjective Date/time seen: 08/31/23 13:16 Interval history: Follow up for acute kidney injury on chronic kidney disease. Renal function a bit worse so diuretics are being held with the plan for gentle IVF resuscitation; no apparent distress noted at the time of my visit; no other events overnight or earlier this AM. Exam Narrative: General: elderly but thins male in NAD Heart: normal S1 and S2; no rub Lungs: clear to auscultation Abdomen: soft, nontender, nondistended, positive bowel sounds Extremities: no cyanosis or clubbing; no edema Skin: warm and dry Objective Data Vital Signs Vital Signs: Vital Signs Temp Pulse Resp BP Pulse Ox O2 Del Method 08/31/23 12:00 65 08/31/23 08:00 71 08/31/23 10:29 87 18 97 08/31/23 08:50 Room Air 08/31/23 09:45 Room Air 08/31/23 08:50 71 08/31/23 08:49 71 16 123/45 L 100 08/31/23 04:00 70 08/31/23 00:00 73 08/30/23 20:00 68 08/30/23 20:15 97.0 F L 67 18 115/46 L 98 Intake/Output Intake/Output: Intake & Output 08/28/23 08/29/23 08/30/23 08/31/23 23:59 23:59 23:59 23:59 Intake Total 520 490 865 365 Output Total 200 250 0 250 Balance 320 240 865 115 Meds/Results Medications: Active Medications Generic Name Dose Route Start Last Admin Trade Name Freq PRN Reason Stop Dose Admin Clopidogrel Bisulfate 75 mg 08/29/23 09:00 08/31/23 08:50 Clopidogrel Bisulfate 75 Mg Tablet PO 75 mg DAILY TIM Administration Empa
[2023-08-31 17:09] LABS: Total Protein Urine Random 24 mg/dL; Ur Ttl Prot Creatinine Ratio 0.28 mg/mg (0-0.20); Urea Random Urine 701 MG/DL
[2023-08-31 17:17] LABS: Sodium Urine Random 7 meq/L
[2023-08-31 17:26] LABS: Eosinophil Urine None Seen % (None Seen); Urine Eos QC 2nd Tech Confirmed
[2023-08-31] MEDS: ROSUVASTATIN 10 MG TABLET PO (21:31)
[2023-08-31] MEDS: MIRTAZAPINE 7.5 MG TABLET PO (21:31)
[2023-09-01] VITALS (10 sets, daily range): BP systolic 102–159; BP diastolic 43–71; PULSE 66–89; RESP 14–17; TEMP 36.1–36.4; O2SAT 92–100
[2023-09-01 07:00] LABS: Basophils Absolute Auto 0.1 K/mm3 (0.0-0.1); Basophils Percent Auto 0.7 % (0.2-1.2); Eosinophils Absolute Auto 0.1 K/mm3 (0-0.3); Eosinophils Percent Auto 0.7 % (0-4.4); Hematocrit 28.1 % (42.0-52.0); Hemoglobin 8.2 g/dL (14.0-18.0); Immature Granulocyte Absolute 0.08 K/mm3 (0.00-0.031); Immature Granulocyte Percent A 0.7 % (0-0.5); Lymphocytes Percent Auto 7.1 % (18.3-44.2); Mean Corpuscular HGB Conc 29.2 g/dl (32-36); Mean Corpuscular Hemoglobin 21.9 pg (26-34); Mean Corpuscular Volume 75.1 fl (80-100); Mean Platelet Volume 10.4 fl (7.4-10.4); Monocytes Absolute Auto 0.9 K/mm3 (0.1-0.6); Monocytes Percent Auto 7.8 % (2.6-8.5); Neutrophils Absolute Auto 9.3 K/mm3 (1.3-6.7); Nucleated Red Blood Cells Absolute Auto 0.1 K/mm3 (0.0-0.012); Nucleated Red Blood Cells Perc 0.8 % (0.0-0.2); Platelet Count Result 322 k/mm3 (150-375); Red Blood Count 3.74 M/mm3 (4.6-6.20); Red Cell Distribution Width 19.5 % (11.5-14.5); White Blood Count 11.2 K/mm3 (4.5-10.0)
[2023-09-01 07:14] LABS: Alanine Aminotransferase 34 U/L (6-50); Alkaline Phosphatase 210 U/L (38-126); Anion Gap 7 mmol/L (8-16); Aspartate Amino Transferase 71 U/L (17-59); Bilirubin,Total 0.8 mg/dL (0.2-1.3); Blood Urea Nitrogen 49 mg/dL (9-20); Calcium 8.3 mg/dL (8.4-10.2); Carbon Dioxide 27 mmol/L (22-30); Chloride 103 mmol/L (98-107); Estimated CRCL calculation 21 ml/min; Estimated Glomerular Filt Rate 25; Glucose 88 mg/dL (65-110); Potassium 3.5 mmol/L (3.4-5.0); Sodium 137 mmol/L (137-145)
--- NOTE | 2023-09-01 07:28 | PM.IMPN ---
Progress Note: A&P Assessment and Plan (1) Dysphagia: Qualifiers: Dysphagia type: unspecified Qualified Code(s): R13.10 - Dysphagia, unspecified Code(s): R13.10 - Dysphagia, unspecified Status: Acute (2) Microcytic anemia: Code(s): D50.9 - Iron deficiency anemia, unspecified Status: Acute (3) Combined systolic and diastolic cardiac dysfunction: Code(s): I51.89 - Other ill-defined heart diseases Status: Acute (4) Elevated troponin: Code(s): R79.89 - Other specified abnormal findings of blood chemistry Status: Acute (5) Hypokalemia: Code(s): E87.6 - Hypokalemia Status: Acute (6) Chronic kidney disease, stage 3: Code(s): N18.30 - Chronic kidney disease, stage 3 unspecified Status: Acute Plan Dysphagia and dyspepsia Patient underwent EGD today which showed mild gastritis Continue with oral Protonix Started patient on regular diet Encourage patient to eat regularly Daughter concerned about the patient and requested Psychiatric/dietary evaluation We do not have a psychiatrist attached to our hospital, which could be addressed as an outpatient by patient's PCP Dietary consult order to assist patient in having oral diet add remeron 7.5 mg qhs po for increasing appetite Patient has combined systolic and diastolic cardiac dysfunction leading to minimally elevated flat cardiac enzymes Cardiology evaluated patient, patient is on Lasix 40 mg p.o. b.i.d. No cardiac intervention required at this time Due to worsening kidney function, hold Lasix on 08/31 repeat CXR small pleural effusion, left basilar atelectasis, no obvious fluid overload VICTORIANO on CKD Patient has mild worsening in renal functions with creatinine bumping up from 1.9-2-2.3 today hold lasix today consult manager environmental health and safety Monitor renal functions closely and adjust Lasix dose per manager environmental health and safety and health specialist recommendation Creatinine is trending up, 2.5 today gentle NS 75ml/h follow urine analysis and osmolarity Patient is anemic with the microcytosis Iron profile done which showed iron deficiency anemia Patient started on IV Venofer 300 mg daily for 2-3 days He may be discharged on oral iron 224 mg p.o. b.i.d. upon discharge PT/OT evaluation ordered I have a discussion with pt's daughter about his conditions, all questions are answered Subjective Date/time seen: 09/01/23 07:28 Interval history: I saw examined today. Patient denies dyspnea, chest pain. creatinine is trending up. worse than yesterday. afeb BP stable Exam Narrative: General:?Well-developed elderly gentleman in no acute distress. Weight: 58.3 kg. BMI: 18.4. HEENT:??PERRL, EOMI. Sclera anicteric.? Oral mucosa moist.? Oropharynx clear. Neck:??Supple. No JVD. Respiratory:?Respirations are nonlabored. Clear bilaterally Cardiovascular:??Regular rate and rhythm with S1-S2.?Systolic murmur at the upper sternal border. Chest:?No tenderness to palpation over the chest wall. Gastrointestinal:??Abdomen is soft, nontender, and nondistended with positive bowel sounds. Skin:??Warm and dry.? No rash or lesions on limited exam. Extremities:??No cyanosis, clubbing, or significant edema. Radial and pedal pulses intact. No palpable knots or cords. Negative Geno sign bilaterally. Neurological:??Alert.? Cranial nerves 2-12 are grossly intact. No gross focal deficits to casual conversation. Psychiatric:??Pleasant and cooperative with normal mood and affect.? Judgment and insight intact. Objective Data Vital Signs Vital Signs: Vital Signs - 24 hr 08/31/23 08:49 08/31/23 08:50 08/31/23 09:45 Temperature Pulse Rate 71 71 Respiratory Rate 16 Blood Pressure 123/45 L Pulse Oximetry 100 Oxygen Delivery Room Air 08/31/23 08:50 08/31/23 10:29 08/31/23 08:00 Temperature Pulse Rate 87 71 Respiratory Rate 18 Blood Pressure Pulse Oximetry 97 Oxygen Delivery Room Air 08/31/23 1
[2023-09-01 08:03] LABS: Hypochromasia 2+ (NORMAL); Platelet Estimate Adequate (Adequate); Polychromasia 1+ (NORMAL); Schistocytes None Seen (NORMAL)
[2023-09-01 08:04] LABS: Anisocytosis 1+ (NORMAL)
[2023-09-01] MEDS: IRON SUCROSE COMPLEX 300 MG in SODIUM CHLORIDE 0.9% IV 250 ML 176.67 MG IVPB (08:56)
[2023-09-01] MEDS: SODIUM CHLORIDE 0.9% IV 1,000 ML 75 ML IV CONT ×2 (08:56→23:44)
[2023-09-01] MEDS: ISOSORBIDE MONONITRATE 30 MG TAB.ER.24H PO (08:59)
[2023-09-01] MEDS: CLOPIDOGREL BISULFATE 75 MG TABLET PO (08:59)
[2023-09-01] MEDS: LEFLUNOMIDE 20 MG TABLET PO (08:59)
[2023-09-01] MEDS: EMPAGLIFLOZIN 25 MG TABLET PO (08:59)
[2023-09-01] MEDS: RANOLAZINE 500 MG TAB.ER.12H PO ×2 (09:00→20:55)
[2023-09-01] MEDS: PANTOPRAZOLE SOD SESQUIHYDRATE 20 MG TAB PO (09:00)
[2023-09-01] MEDS: VITAMIN B CMPLX/VIT C/FOLIC AC 1 CAPSULE 1 CAP PO (09:00)
[2023-09-01] MEDS: METOPROLOL SUCCINATE EXT REL 25 MG TABCR PO (09:00)
--- NOTE | 2023-09-01 09:50 | PM.PNNEP ---
Progress Note: A&P Assessment and Plan (1) VICTORIANO (acute kidney injury): Code(s): N17.9 - Acute kidney failure, unspecified Status: Acute Assessment and Plan: running a bit higher than baseline since admission due to necessity of diuretic therapy(?) possible overdiuresis in the context of poor oral intake? urine electrolytes with prerenal azotemia unremarkable renal ultrasound trial of gentle IVFs follow trend of repeat labs and UOP (2) Chronic kidney disease, stage 3: Code(s): N18.30 - Chronic kidney disease, stage 3 unspecified Status: Chronic Assessment and Plan: seems to run ~ 1.4 - 1.9mg/dl this causing him to fluctuate between CKD stage 3A and stage 3B presumably secondary to chronic heart failure, chronic diuretic use, CAD, HTN, vascular disease and age (3) Combined systolic and diastolic cardiac dysfunction: Code(s): I51.89 - Other ill-defined heart diseases Status: Acute Assessment and Plan: Cardiology following volume status okay diuretics on hold due to #1 (4) Dysphagia: Qualifiers: Dysphagia type: unspecified Qualified Code(s): R13.10 - Dysphagia, unspecified Code(s): R13.10 - Dysphagia, unspecified Status: Acute Assessment and Plan: clinically better s/p EGD with findings of gastritis Gastroenterology following (5) Hypertension: Code(s): I10 - Essential (primary) hypertension Status: Chronic Assessment and Plan: reasonable control follow trend of hemodynamics Will continue to follow. Subjective Date/time seen: 09/01/23 09:50 Interval history: Follow up for acute kidney injury on chronic kidney disease. No significant improvement in renal function with current therapy/interventions; however, no apparent distress noted when seen; no other concerns voiced. Exam Narrative: General: elderly but thins male in NAD Heart: normal S1 and S2; no rub Lungs: clear to auscultation Abdomen: soft, nontender, nondistended, positive bowel sounds Extremities: no cyanosis or clubbing; no edema Skin: warm and intact Objective Data Vital Signs Vital Signs: Vital Signs Temp Pulse Resp BP Pulse Ox O2 Del Method 09/01/23 08:00 68 09/01/23 08:48 Room Air 09/01/23 09:00 89 09/01/23 05:58 97.2 F L 76 14 159/71 H 92 09/01/23 04:00 73 09/01/23 00:00 75 08/31/23 20:00 70 08/31/23 20:44 97.6 F 71 17 114/44 L 90 Intake/Output Intake/Output: Intake & Output 08/29/23 08/30/23 08/31/23 09/01/23 23:59 23:59 23:59 23:59 Intake Total 490 865 615 625 Output Total 250 0 550 Balance 240 865 65 625 Meds/Results Medications: Active Medications Generic Name Dose Route Start Last Admin Trade Name Bereket PRN Reason Stop Dose Admin Clopidogrel Bisulfate 75 mg 08/29/23 09:00 09/01/23 08:59 Clopidogrel Bisulfate 75 Mg Tablet PO 75 mg DAILY TIM Administration Empagliflozin 25 mg 08/29/23 09:00 09/01/23 08:59 Empagliflozin 25 Mg Tablet PO 25 mg DAILY TIM Administration Sodium Chloride 1,000 mls @ 75 mls/hr 09/01/23 07:40 09/01/23 08:56 Normal Saline Iv IV CONT 75 mls/hr .[id number] TIM Administration Isosorbide Mononitrate 30 mg 08/29/23 09:00 09/01/23 08:59 Isosorbide Mononitrate 30 Mg Tab.Er.24h PO 30 mg QAM TIM Administration Leflunomide 20 mg 08/29/23 09:00 09/01/23 08:59 Leflunomide 20 Mg Tablet PO 20 mg DAILY TIM Administration Metoprolol Succinate 25 mg 08/29/23 09:00 09/01/23 09:00 Metoprolol Succinate Ext Rel 25 Mg Tabcr PO 25 mg QAM TIM Administration Mirtazapine 7.5 mg 08/31/23 21:00 08/31/23 21:31 Mirtazapine 7.5 Mg Tablet PO 7.5 mg HS TIM Administration Tofacitinib 5 Mg 5 mg 09/01/23 16:00 09/01/23 16:03 Tablet PO 10/01/23 15:59 5 mg DAILY TIM Administration Pantoprazole Sodium 20 mg 08/29/23 09:0
--- NOTE | 2023-09-01 09:50 | P.PNNP_ITS ---
Progress Note: A&P Assessment and Plan (1) VICTORIANO (acute kidney injury): Code(s): N17.9 - Acute kidney failure, unspecified Status: Acute Assessment and Plan: * running a bit higher than baseline since admission * due to necessity of diuretic therapy(?) * possible overdiuresis in the context of poor oral intake? * urine electrolytes with prerenal azotemia * unremarkable renal ultrasound * trial of gentle IVFs * follow trend of repeat labs and UOP (2) Chronic kidney disease, stage 3: Code(s): N18.30 - Chronic kidney disease, stage 3 unspecified Status: Chronic Assessment and Plan: * seems to run ~ 1.4 - 1.9mg/dl * this causing him to fluctuate between CKD stage 3A and stage 3B * presumably secondary to chronic heart failure, chronic diuretic use, CAD, HTN, vascular disease and age (3) Combined systolic and diastolic cardiac dysfunction: Code(s): I51.89 - Other ill-defined heart diseases Status: Acute Assessment and Plan: * Cardiology following * volume status okay * diuretics on hold due to #1 (4) Dysphagia: Qualifiers: Dysphagia type: unspecified Qualified Code(s): R13.10 - Dysphagia, unspecified Code(s): R13.10 - Dysphagia, unspecified Status: Acute Assessment and Plan: * clinically better * s/p EGD with findings of gastritis * Gastroenterology following (5) Hypertension: Code(s): I10 - Essential (primary) hypertension Status: Chronic Assessment and Plan: * reasonable control * follow trend of hemodynamics Will continue to follow. Subjective Date/time seen: 09/01/23 09:50 Interval history: Follow up for acute kidney injury on chronic kidney disease. No significant improvement in renal function with current therapy/interventions; however, no apparent distress noted when seen; no other concerns voiced. Exam Narrative: General: elderly but thins male in NAD Heart: normal S1 and S2; no rub Lungs: clear to auscultation Abdomen: soft, nontender, nondistended, positive bowel sounds Extremities: no cyanosis or clubbing; no edema Skin: warm and intact Objective Data Vital Signs Vital Signs: Vital Signs Temp Pulse Resp BP Pulse Ox O2 Del Method 09/01/23 08:00 68 09/01/23 08:48 Room Air 09/01/23 09:00 89 09/01/23 05:58 97.2 F L 76 14 159/71 H 92 09/01/23 04:00 73 09/01/23 00:00 75 08/31/23 20:00 70 08/31/23 20:44 97.6 F 71 17 114/44 L 90 Intake/Output Intake/Output: Intake & Output 08/29/23 08/30/23 08/31/23 09/01/23 23:59 23:59 23:59 23:59 Intake Total 490 865 615 625 Output Total 250 0 550 Balance 240 865 65 625 Meds/Results Medications: Active Medications Generic Name Dose Route Start Last Admin Trade Name Freq PRN Reason Stop Dose Admin Clopidogrel Bisulfate 75 mg 08/29/23 09:00 09/01/23 08:59 Clopidogrel Bisulfate 75 Mg Tablet PO 75 mg DAILY TIM Administration Empagliflozin 25 mg 08/29/23 09:00 09/01/23 08:59 Empagliflozin 25 Mg Tablet PO 25 mg DAILY TIM Administration Sodium Chlori
--- NOTE | 2023-09-01 09:58 | P.CDI_ITS ---
CDI Query Clarification Request BMI 18.1 Nutritional Diagnostic Statement Severe protein calorie malnutrition related to poor intake with altered GI function as evidenced by pt report of unable to keep solid food down for greater than 1 week, noted significant weight loss of -9% x 1 month, and NFPE findings. Please refer to the comprehensive nutrition assessment for further information. Please clarify severity of protein calorie malnutrition if known: * Mild * Moderate * Severe * Other/unspecified <Shalini Calles RN - Last Filed: 09/01/23 10:03> Clarified Diagnosis Clarified Diagnosis: Moderate malnutrition <Raquel Garcia MD - Last Filed: 09/01/23 15:14>
--- NOTE | 2023-09-01 10:31 | PCOTNOTE ---
Patient refused treatment this session due to not feeling well and tired. Patient stated we could come back later and try.
--- NOTE | 2023-09-01 11:40 | PCNFU ---
Nutrition Follow-Up Complete: Severe protein calorie malnutrition related to poor intake with altered GI function as evidenced by pt report of unable to keep solid food down for greater than 1 week, noted significant weight loss of -9% x 1 month, and NFPE findings. goal: Meet estimated needs patient will continue current goal. Pt current nutrition is Soft and Bite Sized, Level 6 with Ensure Compact BID. Last recorded weight is 94.3 kg-unsure of bedscale weight, admit weight at 57.5 kg. Bowel Motility: +BM reported 08/27 Labs Reviewed:Cr 2..5,BUN 49, Alb 3.0, Hct 28.1,Hgb 8.2 Meds Noted:Jardiance, Megace, Folic Acid, Protonix. Skin: WNL Additional Notes: Diet order has advanced to a soft and bite sized, Level 6 diet. Spoke with patient today, not hungry this morning. Ate about 25% of meals. Stated he does like the ensure and would like chocolate flavor. Ensure Compact is ordered BID for additional 220 kcals and 9 gms protein. Agree with diet orders. PO intake encouraged. Monitor for diet orders, plan of care, wt, labs. Follow up in 3 day.
--- NOTE | 2023-09-01 15:21 | PHAR ---
HOME MED: TOFACITINIB 5 MG TAB; TAKE ONE TABLET BY MOUTH ONCE A DAY FOR ARTHRITIS. VERIFIED BY PHARMACY.
[2023-09-01 20:27] LABS: Appearance Urine Clear (Clear); Bacteria Urine None Seen /hpf; Bilirubin Urine Negative (Negative); Blood Urine Negative (Negative); Color Urine Dark Yellow (Yellow); Glucose Urine UA 2+ mg/dL (Negative); Ketones Urine Negative (Negative); Leukocyte Esterase Ur Negative LEU/UL (NEGATIVE); Nitrate Urine Negative (Negative); Protein Urine 1+ mg/dL (Negative); RBC Urine 0-2 /hpf (0-2); Specific Grav Ur 1.018 (1.001-1.035); Squamous Epithelial Cell Urine None seen /hpf (Few); Urobilinogen Urine 0.2 mg/dL (<2.0); WBC Urine 0-5 /hpf (0-3); pH Urine 5.5 (5.0-9.0)
[2023-09-01 20:39] LABS: Add Urine Microscopic? YES
[2023-09-01] MEDS: ROSUVASTATIN 10 MG TABLET PO (20:55)
[2023-09-01] MEDS: MIRTAZAPINE 7.5 MG TABLET PO (20:56)
[2023-09-02] VITALS (10 sets, daily range): BP systolic 108–123; BP diastolic 44–49; PULSE 62–74; RESP 12–18; TEMP 36.3–36.7; O2SAT 96–100
[2023-09-02 05:27] LABS: Basophils Absolute Auto 0.1 K/mm3 (0.0-0.1); Basophils Percent Auto 0.5 % (0.2-1.2); Eosinophils Absolute Auto 0.1 K/mm3 (0-0.3); Eosinophils Percent Auto 0.7 % (0-4.4); Hematocrit 29.2 % (42.0-52.0); Hemoglobin 8.8 g/dL (14.0-18.0); Immature Granulocyte Absolute 0.13 K/mm3 (0.00-0.031); Immature Granulocyte Percent A 1.1 % (0-0.5); Lymphocytes Absolute Auto 1.17 K/mm3 (0.9-3.2); Mean Corpuscular HGB Conc 30.1 g/dl (32-36); Mean Corpuscular Hemoglobin 22.4 pg (26-34); Mean Corpuscular Volume 74.5 fl (80-100); Mean Platelet Volume 10.5 fl (7.4-10.4); Monocytes Absolute Auto 0.9 K/mm3 (0.1-0.6); Monocytes Percent Auto 7.9 % (2.6-8.5); Neutrophils Absolute Auto 9.3 K/mm3 (1.3-6.7); Neutrophils Percent Auto 79.8 % (45.5-73.1); Nucleated Red Blood Cells Absolute Auto 0.2 K/mm3 (0.0-0.012); Nucleated Red Blood Cells Perc 1.5 % (0.0-0.2); Platelet Count Result 349 k/mm3 (150-375); Red Blood Count 3.92 M/mm3 (4.6-6.20); Red Cell Distribution Width 19.8 % (11.5-14.5); White Blood Count 11.7 K/mm3 (4.5-10.0)
[2023-09-02 05:41] LABS: Alanine Aminotransferase 63 U/L (6-50); Alkaline Phosphatase 276 U/L (38-126); Anion Gap 10 mmol/L (8-16); Aspartate Amino Transferase 99 U/L (17-59); Bilirubin,Total 0.8 mg/dL (0.2-1.3); Blood Urea Nitrogen 45 mg/dL (9-20); Calcium 8.4 mg/dL (8.4-10.2); Carbon Dioxide 24 mmol/L (22-30); Chloride 105 mmol/L (98-107); Estimated CRCL calculation 18 ml/min; Estimated Glomerular Filt Rate 26; Glucose 80 mg/dL (65-110); Potassium 3.3 mmol/L (3.4-5.0); Sodium 139 mmol/L (137-145)
[2023-09-02 06:07] LABS: Anisocytosis 2+ (NORMAL); Hypochromasia 3+ (NORMAL); Poikilocytosis 2+ (NORMAL); Schistocytes Rare (NORMAL)
--- NOTE | 2023-09-02 07:32 | PM.IMPN ---
Progress Note: A&P Assessment and Plan (1) Dysphagia: Qualifiers: Dysphagia type: unspecified Qualified Code(s): R13.10 - Dysphagia, unspecified Code(s): R13.10 - Dysphagia, unspecified Status: Acute (2) Microcytic anemia: Code(s): D50.9 - Iron deficiency anemia, unspecified Status: Acute (3) Combined systolic and diastolic cardiac dysfunction: Code(s): I51.89 - Other ill-defined heart diseases Status: Acute (4) Elevated troponin: Code(s): R79.89 - Other specified abnormal findings of blood chemistry Status: Acute (5) Hypokalemia: Code(s): E87.6 - Hypokalemia Status: Acute (6) Chronic kidney disease, stage 3: Code(s): N18.30 - Chronic kidney disease, stage 3 unspecified Status: Acute Plan Dysphagia and dyspepsia Patient underwent EGD today which showed mild gastritis Continue with oral Protonix Started patient on regular diet Encourage patient to eat regularly Daughter concerned about the patient and requested Psychiatric/dietary evaluation We do not have a psychiatrist attached to our hospital, which could be addressed as an outpatient by patient's PCP Dietary consult order to assist patient in having oral diet add remeron 7.5 mg qhs po for increasing appetite Patient has combined systolic and diastolic cardiac dysfunction leading to minimally elevated flat cardiac enzymes Cardiology evaluated patient, patient is on Lasix 40 mg p.o. b.i.d. No cardiac intervention required at this time Due to worsening kidney function, hold Lasix on 08/31 repeat CXR small pleural effusion, left basilar atelectasis, no obvious fluid overload VICTORIANO on CKD Patient has mild worsening in renal functions with creatinine bumping up from 1.9-2-2.3 today hold lasix today consult manager of security Monitor renal functions closely and adjust Lasix dose per manager of security and bottle carrier recommendation Creatinine is trending down, 2.4 <2.5 today after received gentle NS follow urine analysis, unremarkable, and pending osmolarity Patient is anemic with the microcytosis Iron profile done which showed iron deficiency anemia Patient started on IV Venofer 300 mg daily for 2-3 days He may be discharged on oral iron 224 mg p.o. b.i.d. upon discharge PT/OT evaluation ordered I have a discussion with pt's daughter about his conditions, all questions are answered Subjective Date/time seen: 09/02/23 07:32 Interval history: I saw examined today. Patient denies dyspnea, chest pain. creatinine is trending down to 2.4. Slightly improving. afeb BP stable Exam Narrative: General:?Well-developed elderly gentleman in no acute distress. Weight: 58.3 kg. BMI: 18.4. HEENT:??PERRL, EOMI. Sclera anicteric.? Oral mucosa moist.? Oropharynx clear. Neck:??Supple. No JVD. Respiratory:?Respirations are nonlabored. Clear bilaterally Cardiovascular:??Regular rate and rhythm with S1-S2.?Systolic murmur at the upper sternal border. Chest:?No tenderness to palpation over the chest wall. Gastrointestinal:??Abdomen is soft, nontender, and nondistended with positive bowel sounds. Skin:??Warm and dry.? No rash or lesions on limited exam. Extremities:??No cyanosis, clubbing, or significant edema. Radial and pedal pulses intact. No palpable knots or cords. Negative Geno sign bilaterally. Neurological:??Alert.? Cranial nerves 2-12 are grossly intact. No gross focal deficits to casual conversation. Psychiatric:??Pleasant and cooperative with normal mood and affect.? Judgment and insight intact. Objective Data Vital Signs Vital Signs: Vital Signs - 24 hr 09/01/23 09:00 09/01/23 08:48 09/01/23 08:00 Temperature Pulse Rate 89 68 Respiratory Rate Blood Pressure Pulse Oximetry Oxygen Delivery Room Air 09/01/23 12:00 09/01/23 13:35 09/01/23 16:00 Temperature 97.0 F L Pulse Rate 71 66 68 Respiratory Rate 17 Blood Pressure 114/43 L Pulse Oxim
[2023-09-02] MEDS: VITAMIN B CMPLX/VIT C/FOLIC AC 1 CAPSULE 1 CAP PO (09:15)
[2023-09-02] MEDS: EMPAGLIFLOZIN 25 MG TABLET PO (09:15)
[2023-09-02] MEDS: CLOPIDOGREL BISULFATE 75 MG TABLET PO (09:15)
[2023-09-02] MEDS: LEFLUNOMIDE 20 MG TABLET PO (09:15)
[2023-09-02] MEDS: METOPROLOL SUCCINATE EXT REL 25 MG TABCR PO (09:15)
[2023-09-02] MEDS: POTASSIUM CHLORIDE 20 MEQ PACKET (FOR LIQUID) 40 MEQ PO ×2 (09:16→17:20)
[2023-09-02] MEDS: RANOLAZINE 500 MG TAB.ER.12H PO ×2 (09:16→22:42)
[2023-09-02] MEDS: ISOSORBIDE MONONITRATE 30 MG TAB.ER.24H PO (09:16)
[2023-09-02] MEDS: PANTOPRAZOLE SOD SESQUIHYDRATE 20 MG TAB PO (09:16)
[2023-09-02] MEDS: ONDANSETRON INJ 4 MG/2 ML VIAL IV PUSH (21:47)
[2023-09-02] MEDS: MIRTAZAPINE 7.5 MG TABLET PO (22:42)
[2023-09-02] MEDS: ROSUVASTATIN 10 MG TABLET PO (22:42)
[2023-09-03] VITALS: PULSE 63
[2023-09-03 00:30] VITALS: BP 60/30; PULSE 34; RESP 10; O2SAT 69
--- NOTE | 2023-09-03 00:50 | PC.NURSE ---
0020 PT UP TO BATHROOM AND STATED FELT WEAK, SAT PATIENT DOWN IN CHAIR AND HR ON MONITOR SHOWED A SINUS PAUSE FOLLOWED BY A RATE OF [address] OCHOA ON FLOOR AND WENT INTO ROOM CALLED RAPID RESPONSE. PT BACK TO BED AND FAMILY NOTIFIED. PT IS A DNR PER DAUGHTER.
--- NOTE | 2023-09-03 03:28 | PM.CCN ---
Critical Care Event Note Summary Code activated: No Narrative: 09/03/2023 at approximately 21:21 I was on the floor seeing another patient when the patient's telemetry started alarming in patient was noted to be bradycardic with irregular rhythm with a rate of 21. Both I and the nurse arrived to the room and found the patient slumped over in a chair. The AGRONOMY TEACHER arrived in the room and stated that the patient had been using the restroom and had felt lightheaded and off. She had assisted him to a chair and had went to grab the patient's urinal. When nursing staff and I arrived the patient was minimally responsive but was trying to open his eyes and was restless Marilyn moving his arms. We attempted to obtain a blood pressure and palpated pulse. Patient did have a palpable irregular slow pulse. We were unable to obtain a blood pressure. The patient was noted to be a DNR/DNI. The patient was moved to the bed. Head patient still had palpable pulse but rate was between 20 and 30. Blood pressures were in the 60s palpable. A dose of atropine was given and a dose of bicarb was given as we were waiting for the patient family to respond to phone call. Family are confirmed patient is DNR DNI. They arrived to the hospital shortly thereafter. With the administration of atropine and bicarb patient's heart rate did briefly improve up to 40 but was still irregular. The patient was having agonal respirations with respiratory rate between 6 and 8 a minute. The patient had pulled secretion is posterior oropharynx. The patient's family arrived at bedside and confirmed that they want the patient made comfortable. The patient was unresponsive pale, cool to touch hypothermic on measurement of temperature, equal breath sounds but shallow respirations. Pulse although her regular was easily palpated in the femoral artery. Around 03:00 nursing staff called as the patient woke up and was more responsive but was not following commands and was uncooperative. He was thrashing about and fighting family and staff while despite attempts to redirect. Subsequently morphine, Ativan, Haldol and atropine were ordered as needed. 40 minute spent in critical care activities. Due to a high probability of clinically significant, life threatening deterioration, the patient required my highest level of preparedness to intervene emergently and I personally spent this critical care time directly and personally managing the patient. This critical care time included obtaining a history; examining the patient; pulse oximetry; ordering and review of studies; arranging urgent treatment with development of a management plan; evaluation of patient's response to treatment; frequent reassessment; and discussions with other providers. It was exclusive of separately billable procedures and treating other patients and teaching time. Please see Assessment and Plan section and the rest of the note for further information on patient assessment and treatment. Critical care time: 30 - 74 mins
[2023-09-03] MEDS: LORazepam INJ (*CRX) 2 MG/ML VIAL IV PUSH ×2 (03:41→15:59)
[2023-09-03 04:00] VITALS: PULSE 72
--- NOTE | 2023-09-03 04:22 | PC.NURSE ---
0315 FAMILY AT BEDSIDE. DISCUSSED WITH FAMILY PTS HR AT 82, PT MOVING ARMS AND OPENING EYES. PUPILS DILATED. FAMILY REQUESTING COMFORT CARE. NO BLOOD DRAWS. DR OCHOA NOTIFIED
--- NOTE | 2023-09-03 07:48 | PM.IMPN ---
Progress Note: A&P Assessment and Plan (1) Dysphagia: Qualifiers: Dysphagia type: unspecified Qualified Code(s): R13.10 - Dysphagia, unspecified Code(s): R13.10 - Dysphagia, unspecified Status: Acute (2) Microcytic anemia: Code(s): D50.9 - Iron deficiency anemia, unspecified Status: Acute (3) Combined systolic and diastolic cardiac dysfunction: Code(s): I51.89 - Other ill-defined heart diseases Status: Acute (4) Elevated troponin: Code(s): R79.89 - Other specified abnormal findings of blood chemistry Status: Acute (5) Hypokalemia: Code(s): E87.6 - Hypokalemia Status: Acute (6) Chronic kidney disease, stage 3: Code(s): N18.30 - Chronic kidney disease, stage 3 unspecified Status: Acute (7) Anoxic encephalopathy due to cardiac arrest: Code(s): G93.1 - Anoxic brain damage, not elsewhere classified; I46.9 - Cardiac arrest, cause unspecified Status: Acute Plan Anoxic encephalopathy Patient is unresponsive Patient had episode of bradycardia and agonal breathing. Per notice report, patient received atropine and bicarbonate, no resuscitation performed because of DNR DNI. Patient family arrived, request comfort care without further workup and medical management. When I saw and examined patient in the morning, patient's daughter and son-in-law requested no further workup including imaging labs, and also requested to stop all medical treatments, except medication for comfort care. Suspecting anoxic encephalopathy. we consulted hospice care team, the hospice care team evaluated patient and accepted the patient for inpatient hospice care. During hospitalization, the following medical issues have been addressed. Dysphagia and dyspepsia Patient underwent EGD today which showed mild gastritis Continue with oral Protonix Started patient on regular diet Encourage patient to eat regularly Daughter concerned about the patient and requested Psychiatric/dietary evaluation We do not have a psychiatrist attached to our hospital, which could be addressed as an outpatient by patient's PCP Dietary consult order to assist patient in having oral diet add remeron 7.5 mg qhs po for increasing appetite Patient has combined systolic and diastolic cardiac dysfunction leading to minimally elevated flat cardiac enzymes Cardiology evaluated patient, patient is on Lasix 40 mg p.o. b.i.d. No cardiac intervention required at this time Due to worsening kidney function, hold Lasix on 08/31 repeat CXR small pleural effusion, left basilar atelectasis, no obvious fluid overload VICTORIANO on CKD Patient has mild worsening in renal functions with creatinine bumping up from 1.9-2-2.3 today hold lasix today consult clinical technologist Monitor renal functions closely and adjust Lasix dose per clinical technologist and rn support services recommendation Creatinine is trending down, 2.4 <2.5 today after received gentle NS follow urine analysis, unremarkable, and pending osmolarity Patient is anemic with the microcytosis Iron profile done which showed iron deficiency anemia Patient started on IV Venofer 300 mg daily for 2-3 days He may be discharged on oral iron 224 mg p.o. b.i.d. 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 I was on the floor seeing another patient when the patient's telemetry started alarming in patient was noted to be bradycardic with irregular rhythm with a rate of 21.? Both I and the nurse arrived to the room and found the patient slumped over in a chair.? The VIDEO JOURNALIST arrived in the room and stated that the patient had been using the restroom and had felt lightheaded and off.? She had assisted him to a chair and had went to grab the patient's urinal.? When nursing staff and I arrived the patient w
[2023-09-03 12:19] VITALS: BP 122/46; PULSE 70; RESP 18; TEMP 36.9; O2SAT 96
--- NOTE | 2023-09-03 16:14 | PM.DS ---
DS: Admitting Diagnosis Discharge Date 09/03/23 Admitting Diagnosis (1) Dysphagia: ?Qualifiers: ?Dysphagia type:?unspecified? Qualified Code(s):?R13.10 - Dysphagia, unspecified ?Code(s): R13.10 - Dysphagia, unspecified ?Status:?Acute (2) Microcytic anemia: ?Code(s): D50.9 - Iron deficiency anemia, unspecified ?Status:?Acute (3) Combined systolic and diastolic cardiac dysfunction: ?Code(s): I51.89 - Other ill-defined heart diseases ?Status:?Acute (4) Elevated troponin: ?Code(s): R79.89 - Other specified abnormal findings of blood chemistry ?Status:?Acute (5) Hypokalemia: ?Code(s): E87.6 - Hypokalemia ?Status:?Acute (6) Chronic kidney disease, stage 3: ?Code(s): N18.30 - Chronic kidney disease, stage 3 unspecified ?Status:?Acute DS: Discharge Diagnosis Discharge Diagnosis (1) Dysphagia: Qualifiers: Dysphagia type: unspecified Qualified Code(s): R13.10 - Dysphagia, unspecified Code(s): R13.10 - Dysphagia, unspecified Status: Acute (2) Microcytic anemia: Code(s): D50.9 - Iron deficiency anemia, unspecified Status: Acute (3) Combined systolic and diastolic cardiac dysfunction: Code(s): I51.89 - Other ill-defined heart diseases Status: Acute (4) Elevated troponin: Code(s): R79.89 - Other specified abnormal findings of blood chemistry Status: Acute (5) Hypokalemia: Code(s): E87.6 - Hypokalemia Status: Acute (6) Chronic kidney disease, stage 3: Code(s): N18.30 - Chronic kidney disease, stage 3 unspecified Status: Acute (7) Anoxic encephalopathy due to cardiac arrest: Code(s): G93.1 - Anoxic brain damage, not elsewhere classified; I46.9 - Cardiac arrest, cause unspecified Status: Acute DS: Summary Hospital Course Hospital Course: Per H&P, this is a very pleasant 83-year-old male with history of stroke, coronary artery disease, combined systolic and diastolic congestive heart failure, hypertension, and rheumatoid arthritis who presented to the emergency department via private vehicle for evaluation of difficulty swallowing.? The patient provides the following history. Over the last week or so he has been having issues keeping down solid foods, reporting that he vomits shortly after eating. He has not noticed any issues with liquids however. He reports having lost about 10 lb and he has become increasingly weak. Also he has noticed increasing dyspnea on exertion the last several weeks. For instance he is now getting short of breath when walking about 15 ft across the room. At times he has some pressure in his chest as well though that improves with rest. He denies syncope, near syncope, fever, chills, sweats, epigastric and abdominal pain, bloating, belching, orthopnea, paroxysmal nocturnal dyspnea, edema, hematemesis, melena, hematochezia, and diarrhea. Of note the patient is known to myself and the hospitalist service from an admission last month at which time he was transferred to [facility] for left heart catheterization per Dr. Tinajero. In the ED: He was afebrile on arrival with stable vital signs. Labs were significant for a WBC count of 13.9, hemoglobin 8.7, MCV 74.7, INR 1.5, BUN 48, creatinine 1.90, potassium 3.3, troponin 0.081, proBNP greater than 30,000. Chest x-ray showed minimal airspace opacities of the lung bases and small pleural effusions. He was given 40 mEq IV potassium chloride and he is being admitted in this setting for GI and cardiology consultations. Per wood buffer report.? I was on the floor seeing another patient when the patient's telemetry started alarming in patient was noted to be bradycardic with irregular rhythm with a rate of 21.? Both I and the nurse arrived to the room and found the patient slumped over in a chair.? The BALLISTICS PROFESSOR arrived in the room and stated that the patient had been using the restroom and had felt lightheaded a
[2023-09-04 21:21] LABS: Osmolality, Urine 462 mOsm/kg (50-1200)
== END 2023-09-03 16:43 | disposition hospice, inpatient (51) | DRG 682 ==
LOC: ANHED 11:35 → ANHIMU 16:01 → ANH2MED 08-30 12:34
PROVIDERS: Internal Medicine Gastroenterology; Internal Medicine Nephrology; Physician Assistant; Admitting Provider Internal Medicine; Emergency Provider Physician Assistant; PCP Family Medicine; Visit Provider Hospitalist
PROC: 0DJ08ZZ Inspection of Upper Intestinal Tract, Via Natural or Artificial Opening Endoscopic (ICD-10-PCS; CPT 43235; principal; 2023-08-29 15:30)
DX: N17.9 Acute kidney failure, unspecified (principal); I46.9 Cardiac arrest, cause unspecified; I50.42 Chronic combined systolic (congestive) and diastolic (congestive) heart failure; G93.1 Anoxic brain damage, not elsewhere classified; I13.0 Hypertensive heart and chronic kidney disease with heart failure and stage 1 through stage 4 chronic kidney disease, or unspecified chronic kidney disease; E44.0 Moderate protein-calorie malnutrition; Z68.1 Body mass index [BMI] 19.9 or less, adult; N18.30 Chronic kidney disease, stage 3 unspecified; I25.10 Atherosclerotic heart disease of native coronary artery without angina pectoris; I65.29 Occlusion and stenosis of unspecified carotid artery; I48.0 Paroxysmal atrial fibrillation; D50.9 Iron deficiency anemia, unspecified; E87.6 Hypokalemia; E55.9 Vitamin D deficiency, unspecified; E78.5 Hyperlipidemia, unspecified; K29.70 Gastritis, unspecified, without bleeding; G72.49 Other inflammatory and immune myopathies, not elsewhere classified; M06.9 Rheumatoid arthritis, unspecified; M19.90 Unspecified osteoarthritis, unspecified site; R00.1 Bradycardia, unspecified; R13.10 Dysphagia, unspecified; Z79.01 Long term (current) use of anticoagulants; Z79.02 Long term (current) use of antithrombotics/antiplatelets; Z95.1 Presence of aortocoronary bypass graft; Z86.73 Personal history of transient ischemic attack (TIA), and cerebral infarction without residual deficits; Z51.5 Encounter for palliative care
CPT/HCPCS: 36415; 71046; 76775; 80048; 80053; 80069; 81001; 81003; 81050; 82570; 82607; 82728; 82746; 83540; 83550; 83690; 83735; 83880; 83935; 84156; 84300; 84439; 84443; 84480; 84484; 84540; 85025; 85027; 85610; 85730; 85999; 93005; 96365; 96366; 97110; 97161; 97165; 97530; 97535; 99285; A9270; G0378; J0461; J1756; J1940; J2060; J2405; J2704; J3480; J7030; J7040; J7050; J7120

== ENCOUNTER 2023-09-03 16:44 | HOS | payer OTHER, SELFPAY ==
[2023-09-03 17:45] VITALS: BMI 19.3
[2023-09-03] MEDS: HYDROmorphone HCL/PF (*CRX) 50 MG in SODIUM CHLORIDE 0.9% IV 95 ML IV CONT (17:45)
[2023-09-03 21:46] VITALS: BP 127/47; PULSE 76; RESP 14; TEMP 36.5; O2SAT 88
--- NOTE | 2023-09-04 06:08 | PC.NURSE ---
BODY TO AAMIR PER CART.
--- NOTE | 2023-09-04 12:47 | PM.IMHP ---
H&P: HPI History of Present Illness Date/Time: 09/04/23 12:47 Chief Complaint: uncontrolled dyspnea Narrative: 83 y/o m presented to ED with one week of increased dyspnea and dysphagia. 10 pound wt loss. Emesis with eating. Increased PATRICK over past few weeks. While inpatient, on 09/01 he had episode of bradycardia and collapse. Since then he was restless, agitated, dysarthric, unable to get out of bed. 3 months ago he was living independently and driving, cooking. PPS was 60. Review of Systems Review of Systems: ROS unobtainable: Yes unobtainable due to medical condition [facility] Past Medical History Medical History (Updated 09/04/23 @ 12:53 by Darell Tovar MD) Carotid stenosis Chronic anemia Chronic kidney disease, stage 3 Combined systolic and diastolic cardiac dysfunction Coronary artery disease Dyslipidemia Gastritis History of stroke Hypertension Inflammatory and immune myopathies Osteoarthritis Paroxysmal atrial fibrillation Rheumatoid arthritis Vitamin D deficiency Surgical History Surgical History History of coronary artery stent placement History of thoracotomy Repair heart muscle in 1999. Family History Family History Father Acute myocardial infarction Hypertension Mother Acute myocardial infarction Social History Social History Social History: Patient has not smoked or drink alcohol since 1999. 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 He designates his daughter Yoko as his surrogate decision maker. He would like to be a full code. Smoking status: Never smoker Tobacco type: cigarettes Second hand tobacco smoke exposure: No Smoking end date: 01/27/02 Alcohol intake: never Substance use: never Substance use type: does not use Do You Feel Safe in your Home?: Yes Lack of Transportation: No Lack of Food: Never True Current Housing: I Have Housing Concerned About Future Housing: No Difficulty Paying Gas/Electric Bills: No Difficulty Paying for Meds: No Currently Unemployed: No Education: Decline to Answer Difficulty w/ Childcare or Family Care: No Spiritual care concerns: No Agree to blood products: Yes Meds Home Medications and Allergies Home Medications Medication Instructions Recorded Confirmed Type alendronate 70 mg tablet 70 mg PO WEEKLY 12/08/19 09/03/23 History tofacitinib 5 mg tablet 5 mg PO DAILY 12/08/19 09/03/23 History clopidogrel 75 mg tablet (Plavix) 75 mg PO DAILY #30 tabs 01/29/20 09/03/23 Rx nitroglycerin 0.4 mg sublingual 0.4 mg sublingual Q5M PRN Chest 12/06/22 09/03/23 History tablet Pain isosorbide mononitrate 30 mg 30 mg PO QAM #30 tabs 06/17/23 09/03/23 Rx tablet,extended release 24 hr metoprolol succinate 25 mg 25 mg PO QAM 07/11/23 09/03/23 History tablet,extended release 24 hr (Toprol XL) ranolazine 500 mg tablet,extended 500 mg PO Q12H 07/31/23 09/03/23 History release,12 hr apixaban 5 mg tablet (Eliquis) 2.5 mg PO BID 08/16/23 09/03/23 History empagliflozin 25 mg tablet 25 mg PO DAILY 08/28/23 09/03/23 History (Jardiance) furosemide 40 mg tablet (Lasix) 40 mg PO BID 08/28/23 09/03/23 History leflunomide 20 mg tablet 20 mg PO DAILY 08/28/23 09/03/23 History pantoprazole 20 mg tablet,delayed 20 mg PO QAM 08/28/23 09/03/23 History release rosuvastatin 10 mg BYMOUTH HS 08/28/23 09/03/23 History vitamin B complex and vitamin C 1 cap PO DAILY 08/28/23 09/03/23 History no.20-folic acid 1 mg capsule Allergies Allergy/AdvReac Type Severity Reaction Status Date / Time Pynqngc-[id number]-MgE Reductase Allergy Unknown Unknown Verified 08/28/23 09:49 Inhibitor [Ofcqyop-QCK-ReB Reductase Inhibitors] atorvastatin Allergy Unknown Verified 08/28/23 09:49 hydroxychloroquine Allergy Unknown Verified 08/28/23 09:49 peanut Allergy Unknown Verified
--- NOTE | 2023-09-04 12:54 | PM.DDS ---
Discharge Summary Date and Time Date of : 09/04/23 Time of : 04:10 Provider Pronounced By: ZACKERY ALICIA RN Probable Cause of Probable Cause of : post-anoxic encephalopathy due to cardiac arrest due to CAD and CHF Summary Hospital Course: Admitted to inpatient hospice service. Medications titrated to comfort. Mr. Baker peacefully. Additional Data Confirmation of as documented by pronouncing clinician: Pupillary Reflex, Palpable Pulses, Response to Stimuli, Heart Tones and Breath Sounds Name of Provider Notified: STEPHANIE ARCE Time Provider Notified: 05:08 Provider Requests Autopsy: No Family Requests Autopsy: No Registered Nurse Practitioner Notified: Yes Date [facility] Notified of : 09/04/23 Time [facility] Notified of : 04:39
== END 2023-09-04 04:10 | disposition expired | DRG 951 ==
LOC: ANH2MED 11-04 13:42
PROVIDERS: Admitting Provider Internal Medicine; PCP Family Medicine; Visit Provider Internal Medicine
DX: Z51.5 Encounter for palliative care (principal); I13.0 Hypertensive heart and chronic kidney disease with heart failure and stage 1 through stage 4 chronic kidney disease, or unspecified chronic kidney disease; I50.42 Chronic combined systolic (congestive) and diastolic (congestive) heart failure; G93.1 Anoxic brain damage, not elsewhere classified; N18.30 Chronic kidney disease, stage 3 unspecified; I25.10 Atherosclerotic heart disease of native coronary artery without angina pectoris; I46.2 Cardiac arrest due to underlying cardiac condition; R13.10 Dysphagia, unspecified; E78.5 Hyperlipidemia, unspecified; M19.90 Unspecified osteoarthritis, unspecified site; M06.9 Rheumatoid arthritis, unspecified; D64.9 Anemia, unspecified; I65.29 Occlusion and stenosis of unspecified carotid artery; Z95.5 Presence of coronary angioplasty implant and graft; Z86.73 Personal history of transient ischemic attack (TIA), and cerebral infarction without residual deficits
CPT/HCPCS: A9270; J1170